=== PATIENT | female | born 1980 | race Caucasian/White ===

== ENCOUNTER 2018-05-01 21:09 | Inpatient (IN) | payer MEDICAID ==
[2018-05-01] MEDS ORDERED: ONDANSETRON HCL IV 4 MG/2 ML VIAL IVP ONE (21:26)
[2018-05-01] MEDS ORDERED: MORPHINE SULFATE 10 MG/ML VIAL IVP ONE ×2 (21:27→23:43)
[2018-05-01] MEDS ORDERED: 0.9 % SODIUM CHLORIDE 1000ML 1,000 ML IV SCH (21:30)
--- NOTE | 2018-05-01 21:31 | Emergency Department Record ---
History of Present Illness - General Chief Complaint: Abdominal Pain Stated Complaint: ABD PAIN Time Seen by Provider: 05/01/18 21:15 Source: Patient Mode of Arrival: Ambulatory Limitations: No limitations - History of Present Illness Initial Comments: 37 yo female presents to ED for evaluation of RLQ abdominal pain that began 3 days ago. Patient reports a history of crohn's s/p partial bowel resection approximately 10 years ago. Patient denies fevers, chills, nausea, or vomiting symptoms. Patient does report that her symptoms have been intermittent in nature, also reports previous appendectomy. MD Complaint: Abdominal pain Onset/Timin -: Days(s) Location: RLQ Radiation: None Severity scale (1-10): 9 Quality: Other Consistency: Constant Worsens With: Movement Associated Symptoms: Nausea - Related Data LMP (females 10-50): Last week Patient : No Home Medications Medication Instructions Recorded Confirmed Last Taken Aripiprazole 15 mg PO DAILY 05/01/18 05/01/18 Unknown Bupropion HCl [Bupropion Xl] 300 mg PO QAM 05/01/18 05/01/18 Unknown Cyclobenzaprine HCl [Flexeril] 5 mg PO BID PRN 05/01/18 05/01/18 Unknown Allergies Allergy/AdvReac Type Severity Reaction Status Date / Time cephalexin Allergy Mild hives Verified 05/01/18 21:13 Travel Screening - Travel/Exposure Within Last 30 Days Have you traveled within the last 30 days?: No - Travel Symptoms Symptom Screening: None Review of Systems Constitutional: Denies: Chills, Fever, Malaise, Night sweats Eyes: Denies: Eye discharge, Eye pain ENT: Denies: Congestion, Ear pain, Epistaxis Respiratory: Denies: Cough, Dyspnea Cardiovascular: Denies: Chest pain, Dyspnea on exertion Endocrine: Denies: Fatigue, Heat or cold intolerance Gastrointestinal: Reports: Abdominal pain. Denies: Nausea, Vomiting Genitourinary: Denies: Incontinence, Retention Musculoskeletal: Denies: Arthralgia, Back pain Skin: Denies: Bruising, Change in color Neurological: Denies: Abnormal gait, Confusion, Headache, Seizure Psychiatric: Denies: Anxiety Hematological/Lymphatic: Denies: Anemia, Blood Clots Past Medical History - SOCIAL HISTORY Smoking Status: Former smoker - RESPIRATORY Hx Respiratory Disorders: No - CARDIOVASCULAR Hx Cardio Disorders: No - NEURO Hx Neuro Disorders: No - GI Hx GI Disorders: Yes Hx Crohn's Disease: Yes Hx Obstructive Bowel: Yes - Hx Genitourinary Disorders: Yes Hx Bladder Problem: Yes (mild incontinence) - ENDOCRINE Hx Endocrine Disorders: No - MUSCULOSKELETAL Hx Musculoskeletal Disorders: No - PSYCH Hx Psych Problems: Yes Hx Anxiety: Yes Hx Depression: Yes Comment:: Bipolar - HEMATOLOGY/ONCOLOGY Hx Hematology/Oncology Disorders: No Family Medical History Any Significant Family History?: Yes Family Hx Comment (NOT TO BE USED IN PLACE OF ITEMS BELOW): Mom w/Aids Physical Exam - General General Appearance: Alert, Oriented x3, Cooperative, Mild distress Limitations: No limitations - Head Head exam: Atraumatic, Normocephalic, Normal inspection Head exam detail: negative: Abrasion, Contusion, Cote's sign, General tenderness, Hematoma, Laceration - Eye Eye exam: Normal appearance. negative: Conjunctival injection, Periorbital swelling, Periorbital tenderness, Scleral icterus - ENT Ear exam: negative: Auricular hematoma, Auricular trauma Nasal Exam: negative: Active bleeding, Discharge, Dried blood, Foreign body Mouth exam: negative: Drooling, Laceration, Muffled voice, Tongue elevation - Neck Neck exam: Normal inspection. negative: Meningismus, Tenderness - Respiratory Respiratory exam: Normal lung sounds bilaterally. negative: Rales, Respiratory distress, Rhonchi, Stridor - Cardiovascular Cardiovascular Exam: Regular rate, Normal rhythm, Normal heart sounds - GI/Abdominal GI/Abdominal exam: Soft, Tenderness (TTP RLQ on examination, no rebound or guarding are present.). negative: Rebound, Rigid - Rectal Rectal exam: Deferred - exam: Deferred - Extremities Extremities exam: Normal inspection. negative: Calf tenderness, Pedal edema, Tenderness - Back Back exam: Denies: CVA tenderness (R), CVA tenderness (L) - Neurological Neurological exam: Alert, Normal gait, Oriented X3 - Psychiatric Psychiatric exam: Normal affect, Normal mood - Skin Skin exam: Normal color. negative: Abrasion Type of lesion: negative: abrasion Course Vital Signs 05/01/18 21:15 Temperature 98.5 F Pulse Rate [ 131 H Pulse Ox Probe] Respiratory 24 Rate Blood Pressure 154/102 [Left Arm] Pulse Ox 97 - Reevaluation(s) Reevaluation #1: 05/01/18 22:31 Labs reviewed and are grossly unremarkable for an acute process. Patient reports improvement in her symptoms following Morphine administration, is drinking oral contrast for CT imaging at this time. Reevaluation #2: 05/01/18 23:43 Patient is back from CT imaging, additional analgesia ordered as the patient's pain symptoms are beginning to return. Reevaluation #3: 05/02/18 00:23 Inflammatory changes are seen within the terminal ileum compatible with crohn's flare Results in early/incomplete small bowel obstruction. Sequela of chronic inflammation within the distal descending colon and sigmoid colon. Hepatic steatosis, mild hepatomegay. Patient was updated on all results, will admit for IV steroids and surgical consultation tomorrow morning. Patient is in agreement with the plan of care as directed. Reevaluation #4: 05/02/18 06:37 Case was discussed with Ivy WREN, will accept admission at this time. Medical Decision Making - Lab Data Result diagrams: 05/01/18 21:32 05/01/18 21:32 Disposition Disposition: Admit Clinical Impression: SBO (small bowel obstruction) Crohn's colitis Qualifiers: Digestive disease complication type: without complication Qualified Code(s): K50.10 - Crohn's disease of large intestine without complications Disposition: Still a Patient at [facility] Decision to Admit: Admit from ER Decision to Admit Date: 05/02/18 Decision to Admit Time: 00:30 Condition: (2) Stable Time of Disposition: 00:22 Quality - Quality Measures Quality Measures: N/A - Blood Pressure Screening Does Patient Have Any of the Following: No Blood Pressure Classification: Pre-Hypertensive BP Reading Systolic Measurement: 132 Diastolic Measurement: 89 Screening for High Blood Pressure: < Pre-Hypertensive BP, F/U Documented > [ [id number]] Pre-Hypertensive Follow-up Interventions: Referral to alternative/primary care provider.
[2018-05-01 21:38] LABS: BASO % 0.3 % (0-6); EOS % 3.3 % (0-6); GRAN % 63.7 % (47-80); HEMATOCRIT 40.7 % (35.0-47.0); HEMOGLOBIN 13.5 gm/dl (11.6-16.0); LYMPH % 22.7 % (16-45); MEAN CELL VOLUME 89.1 fl (81-97); MEAN CORPUSCULAR HEMOGLOBIN 29.5 pg (27-33); MEAN CORPUSCULAR HGB CONC 33.2 g/dl (32-36); MEAN PLATELET VOLUME 8.4 fl (7.4-10.4); PLATELET COUNT 436 K/uL (130-400); RED BLOOD COUNT 4.57 M/uL (3.80-5.40); RED CELL DISTRIBUTION WIDTH 13.8 % (11.5-14.5); WHITE BLOOD COUNT W/O DIFF 9.5 K/uL (4.2-12.2)
[2018-05-01 21:56] LABS: ALB/GLOB RATIO 1.6 (1.1-1.8); ALBUMIN 4.2 g/dL (4.0-5.0); ALKALINE PHOSPHATASE 68 U/L (35-104); ALT/SGPT 20 U/L (<33); AST/SGOT 14 U/L (10.0-35.0); BLOOD UREA NITROGEN 6 mg/dL (6-20); CREATININE 0.7 mg/dL (0.5-0.9); EST GLOMERULAR FILTRATION RATE > 60 mL/min; GLUCOSE,RANDOM 110 mg/dL (74-109); LIPASE 25 U/L (13-60); TOTAL PROTEIN 6.8 g/dL (6.6-8.7)
[2018-05-01 22:39] LABS: URINE APPEARANCE CLEAR; URINE BILIRUBIN NEGATIVE (NEGATIVE); URINE BLOOD TRACE-I (NEGATIVE); URINE COLOR YELLOW; URINE GLUCOSE (UA) NEGATIVE (NEGATIVE); URINE KETONE NEGATIVE (NEGATIVE); URINE LEUKOCYTE ESTERASE SMALL (NEGATIVE); URINE NITRITE NEGATIVE (NEGATIVE); URINE PROTEIN NEGATIVE (NEGATIVE); URINE UROBILINOGEN 0.2 E.U./dL (0.20 - 1.00)
[2018-05-01 22:42] LABS: URINE BACTERIA FEW; URINE RBC 0 - 2 (NONE SEEN); URINE WBC 0 - 2 (0-2/hpf)
[2018-05-02] MEDS ORDERED: METHYLPREDNISOLONE PF 125MG/VIAL IVP ONE (00:28)
[2018-05-02] MEDS ORDERED: ONDANSETRON HCL IV 4 MG/2 ML VIAL IVP PRN (01:01)
[2018-05-02] MEDS ORDERED: VENLAFAXINE ER 75 MG CAPSULE PO SCH (01:01)
[2018-05-02] MEDS ORDERED: 0.9 % SODIUM CHLORIDE 1000ML 1,000 ML IV PRN (01:01)
[2018-05-02] MEDS ORDERED: MORPHINE SULFATE 10 MG/ML VIAL IVP SCH (01:01)
[2018-05-02] MEDS ORDERED: CYCLOBENZAPRINE 10MG TABLET PO PRN (02:19)
[2018-05-02] MEDS: MORPHINE SULFATE 10 MG/ML VIAL IVP PRN ×3 (04:29→12:28)
--- NOTE | 2018-05-02 07:39 | CT SCAN REPORT ---
EXAM: CT OF THE ABDOMEN AND PELVIS WITH CONTRAST HISTORY: RIGHT LOWER QUADRANT ABDOMINAL PAIN FOR THREE DAYS WITH DIARRHEA. TECHNIQUE: Contrast enhanced helical CT examination of the abdomen and pelvis was performed including delayed images through the kidneys with 100 ml of Omnipaque 300 utilized. Comparison: None. FINDINGS: Linear scarring versus atelectasis is present in the medial segment of the right middle lobe. The lung bases are otherwise clear. No pleural or pericardial effusion. The heart is not enlarged. There is a well circumscribed hypodense lesion within the anterior aspect of the medial segment of the left liver lobe as seen on series 3 image 33. This measures 8.5 x 9.5 mm. It is nonspecific, but likely a cyst or hemangioma. No other focal liver lesion is identified. The spleen, pancreas and adrenal glands are normal in appearance. A too small to characterize hypodense focus is demonstrated within the cortex of the mid right kidney. A tiny hypodense focus is also questioned within the mid left kidney. These are nonspecific, but likely cysts. The kidneys are otherwise normal in appearance. The gallbladder is unremarkable and no biliary ductal dilatation is seen. The portal vein and splenic vein are patent. The central mesenteric vasculature is patent. No aneurysm identified. Post surgical changes are noted within the right abdomen with enterocolic anastomosis in the right upper quadrant. Proximal to the anastomosis, the distal ileum is mildly dilated with associated air fluid levels and mild stranding of adjacent mesenteric fat. Trace fluid is present in this region. These findings are consistent with active inflammatory disease. There are associated mildly prominent lymph nodes in the central mesentery with the largest measuring 11 mm in short axis diameter. Liquid stool is noted within the left colon consistent with stated history of diarrhea. No pelvic mass, lymphadenopathy or free pelvic fluid. Small follicles are scattered within the ovaries. No intrinsic urinary bladder abnormality. There is a small fat filled umbilical hernia. No lytic or blastic bone lesion. IMPRESSION: 1. FINDINGS CONSISTENT WITH PARTIAL RESECTION OF RIGHT COLON AND ILEUM WITH ENTEROCOLIC ANASTOMOSIS IN THE RIGHT UPPER QUADRANT. ABNORMAL APPEARANCE OF THE DISTAL ILEUM CONSISTENT WITH ACTIVE INFLAMMATORY BOWEL DISEASE APPEARING TO CAUSE PARTIAL OBSTRUCTION. NO ASSOCIATED ABSCESS. THERE ARE REACTIVE LYMPH NODES IN THIS REGION. 2. NOT MENTIONED ABOVE IS MILD HEPATIC STEATOSIS. TOO SMALL TO CHARACTERIZE HYPODENSE LESION IN THE MEDIAL SEGMENT OF THE LEFT LIVER LOBE IS NONSPECIFIC, BUT LIKELY A CYST OR HEMANGIOMA. 3. SINGLE TOO SMALL TO CHARACTERIZE HYPODENSE LESIONS WITHIN THE KIDNEYS ARE NONSPECIFIC, BUT LIKELY CYSTS. JOB NUMBER: [id number] MTDD
[2018-05-02] MEDS: VENLAFAXINE ER 75 MG CAPSULE PO SCH (09:31)
[2018-05-02] MEDS ORDERED: METHYLPREDNISOLONE PF 125MG/VIAL IVP SCH (10:00)
[2018-05-02] MEDS ORDERED: ARIPIPRAZOLE 15 MG PO SCH ×2 (10:00)
--- NOTE | 2018-05-02 11:15 | History & Physical ---
History of Present Illness - Date of Service Date of Service for History & Physical: 05/02/18 - History of Present Illness Admitting Diagnosis: Crohn's colitis. Early/incomplete SBO History of Present Illness: Mrs. Morris is a 37 yo female who presented to the ED the evening of 05/01 for evaluation of RLQ abdominal pain that began 3 days prior. Patient reported a history of crohn's s/p partial bowel resection approximately 10 years ago. Patient denies fevers, chills, nausea, or vomiting symptoms. Patient does report that her symptoms have been intermittent in nature, also reports previous appendectomy. Her hx includes ex-smoker, crohn's disease, bowel obstruction, mild urinary incontinence, depression, anxiety, and bipolar disorder. In the ED, her vital signs were stable. Her labs were grossly unremarkable for acute process. She reported improved symptoms after IV morphine administration. CT demonstrated inflammatory changes within the terminal ileum compatible with Crohn's flare. Patient was updated on all results, admitted for IV steroids and possible surgical consultation if no improvement in symptoms. 05/02/18: Pt. is resting comfortably in bed. She reports pain controlled well with IV morphine. She states that she did have a bowel movement earlier in the morning- no noticeable blood/mucus in stool. Plan to advance diet to clear liquids, change steroids to PO (60mg prednisone daily) and try PO pain management. Will consider surgical consultation if no improvement in symptoms. Travel Screening - Travel/Exposure Within Last 30 Days Have you traveled within the last 30 days?: No - Travel/Exposure Within Last Year Have you traveled outside the [place] in the last year?: No - Additonal Travel Details Have you been exposed to anyone with a communicable illness?: No - Travel Symptoms Symptom Screening: None Review of Systems Constitutional: Denies: Chills, Fever, Malaise, Night sweats Eyes: Denies: Eye discharge, Eye pain ENT: Denies: Congestion, Ear pain, Epistaxis Respiratory: Denies: Cough, Dyspnea Cardiovascular: Denies: Chest pain, Dyspnea on exertion Endocrine: Denies: Fatigue, Heat or cold intolerance Gastrointestinal: Reports: Abdominal pain. Denies: Nausea, Vomiting Genitourinary: Denies: Incontinence, Retention Musculoskeletal: Denies: Arthralgia, Back pain Skin: Denies: Bruising, Change in color Neurological: Denies: Abnormal gait, Confusion, Headache, Seizure Psychiatric: Denies: Anxiety Hematological/Lymphatic: Denies: Anemia, Blood Clots Past Medical History - SOCIAL HISTORY Smoking Status: Former smoker - RESPIRATORY Hx Respiratory Disorders: No - CARDIOVASCULAR Hx Cardio Disorders: No - NEURO Hx Neuro Disorders: No - GI Hx GI Disorders: Yes Hx Crohn's Disease: Yes Hx Obstructive Bowel: Yes - Hx Genitourinary Disorders: Yes Hx Bladder Problem: Yes (mild incontinence) - ENDOCRINE Hx Endocrine Disorders: No - MUSCULOSKELETAL Hx Musculoskeletal Disorders: No - PSYCH Hx Psych Problems: Yes Hx Anxiety: Yes Hx Depression: Yes Comment:: Bipolar - HEMATOLOGY/ONCOLOGY Hx Hematology/Oncology Disorders: No Family Medical History Any Significant Family History?: Yes Family Hx Comment (NOT TO BE USED IN PLACE OF ITEMS BELOW): Mom w/Aids H&P Meds/Allergies - Allergies Allergies: Allergies Allergy/AdvReac Type Severity Reaction Status Date / Time cephalexin Allergy Mild hives Verified 05/01/18 21:13 - Home Medications Home Medications Medication Instructions Recorded Confirmed Last Taken Aripiprazole 15 mg PO DAILY 05/01/18 05/01/18 Unknown Bupropion HCl [Bupropion Xl] 300 mg PO QAM 05/01/18 05/01/18 Unknown Cyclobenzaprine HCl [Flexeril] 5 mg PO BID PRN 05/01/18 05/01/18 Unknown - Active Medications Active Medications: Current Medications Bupropion HCl (Wellbutrin Sr) 300 mg PO QHS [facility] Cyclobenzaprine HCl (Flexeril) 5 mg PO BID PRN PRN Reason: SPASMS Sodium Chloride () 1,000 mls @ 100 mls/hr IV .Q10H PRN PRN Reason: LARGE VOLUME IV Last Admin: 05/02/18 01:53 Dose: 100 mls/hr Methylprednisolone Sodium Succinate (Solu-Medrol) 125 mg IVP DAILY [facility] Last Admin: 05/02/18 09:31 Dose: 125 mg Morphine Sulfate (Morphine Sulfate) 4 mg IVP Q4H PRN PRN Reason: ABDOMINAL PAIN Last Admin: 05/02/18 08:16 Dose: 4 mg Non-Formulary Medication (Aripiprazole [Aripiprazole]) 15 mg PO DAILY [facility] Ondansetron HCl (Zofran) 4 mg IVP Q4H PRN PRN Reason: NAUSEA Quetiapine Fumarate (Seroquel) 150 mg PO QHS [facility] Venlafaxine HCl (Effexor Xr) 75 mg PO DAILY [facility] Last Admin: 05/02/18 09:31 Dose: 75 mg Physical Exam - Vital Signs Vital Signs: Vital Signs - Last 24 Hrs Temp Pulse Resp BP BP Pulse Ox 05/02/18 08:41 20 05/02/18 04:00 99.2 F 113 H 17 132/89 93 L 05/02/18 01:28 18 05/02/18 01:01 98.8 F 111 H 18 149/98 94 L 05/02/18 00:41 102 H 16 145/100 94 L 05/01/18 23:51 100 H 16 130/90 94 L 05/01/18 22:30 100 H 16 145/97 98 05/01/18 21:15 98.5 F 131 H 24 154/102 97 - General General Appearance: Alert, Oriented x3, Cooperative, Mild distress Limitations: No limitations - Head Head exam: Atraumatic, Normocephalic, Normal inspection Head exam detail: negative: Abrasion, Contusion, Cote's sign, General tenderness, Hematoma, Laceration - Eye Eye exam: Normal appearance. negative: Conjunctival injection, Periorbital swelling, Periorbital tenderness, Scleral icterus - ENT Ear exam: negative: Auricular hematoma, Auricular trauma Nasal Exam: negative: Active bleeding, Discharge, Dried blood, Foreign body Mouth exam: negative: Drooling, Laceration, Muffled voice, Tongue elevation - Neck Neck exam: Normal inspection. negative: Meningismus, Tenderness - Respiratory Respiratory exam: Normal lung sounds bilaterally. negative: Rales, Respiratory distress, Rhonchi, Stridor - Cardiovascular Cardiovascular Exam: Regular rate, Normal rhythm, Normal heart sounds - GI/Abdominal GI/Abdominal exam: Soft, Tenderness (TTP RLQ on examination, no rebound or guarding are present.). negative: Rebound, Rigid - Rectal Rectal exam: Deferred - exam: Deferred - Extremities Extremities exam: Normal inspection. negative: Calf tenderness, Pedal edema, Tenderness - Back Back exam: Denies: CVA tenderness (R), CVA tenderness (L) - Neurological Neurological exam: Alert, Normal gait, Oriented X3 - Psychiatric Psychiatric exam: Normal affect, Normal mood - Skin Skin exam: Normal color. negative: Abrasion Type of lesion: negative: abrasion Results - Labs Result Diagrams: 05/01/18 21:32 05/01/18 21:32 Labs Last 24 Hours: Laboratory Results - last 24 hr 05/01/18 05/01/18 05/01/18 21:32 21:32 22:39 WBC 9.5 RBC 4.57 Hgb 13.5 Hct 40.7 MCV 89.1 MCH 29.5 MCHC 33.2 RDW 13.8 Plt Count 436 H MPV 8.4 Gran % 63.7 Lymphocytes % 22.7 Monocytes % 10.0 H Eosinophils % 3.3 Basophils % 0.3 Sodium 139 Potassium 3.5 Chloride 102 Carbon Dioxide 23.0 Anion Gap 14.0 BUN 6 Creatinine 0.7 Estimated GFR > 60 Random Glucose 110 H Calcium 9.1 Total Bilirubin 0.20 AST 14 ALT 20 Alkaline Phosphatase 68 Total Protein 6.8 Albumin 4.2 Globulin 2.6 Albumin/Globulin Ratio 1.6 Lipase 25 Urine Color Urine Appearance Urine pH Ur Specific Hardy Urine Protein Urine Glucose (UA) Urine Ketones Urine Blood Urine Nitrite Urine Bilirubin Urine Urobilinogen Ur Leukocyte Esterase Urine RBC Urine WBC Ur Epithelial Cells Urine Bacteria Urine HCG, Qual Negative 05/01/18 22:40 WBC RBC Hgb Hct MCV MCH MCHC RDW Plt Count MPV Gran % Lymphocytes % Monocytes % Eosinophils % Basophils % Sodium Potassium Chloride Carbon Dioxide Anion Gap BUN Creatinine Estimated GFR Random Glucose Calcium Total Bilirubin AST ALT Alkaline Phosphatase Total Protein Albumin Globulin Albumin/Globulin Ratio Lipase Urine Color Yellow Urine Appearance Clear Urine pH 6.0 Ur Specific Hardy <= 1.005 Urine Protein Negative Urine Glucose (UA) Negative Urine Ketones Negative Urine Blood Trace-i Urine Nitrite Negative Urine Bilirubin Negative Urine Urobilinogen 0.2 Ur Leukocyte Esterase Small H Urine RBC 0 - 2 Urine WBC 0 - 2 Ur Epithelial Cells 10 - 15 Urine Bacteria Few Urine HCG, Qual VTE H&P Assessment - Risk for VTE Risk for VTE: Yes Risk Level: Very Low Risk Assessment Date: 05/02/18 Risk Assessment Time: 18:52 VTE Orders Placed or Will Be Placed: Yes Plan - Inpatient Certification Inpatient Certification: Admit to inpatient care: Based on my medical assessment, after consideration of patient's risk factors (age, co-morbidities and patient presenting symptoms and acuity), I expect that this patient will remain in the hospital greater than or equal to two midnights and that the services needed warrant inpatient care because: Patient Risk Factors: [co-morbidities, crohn's colitis] Estimated length of stay: [24-72 hours] The patient may reasonably be expected to be discharged or transferred to a hospital within 96 hours after admission to [facility]. Services needed: [IVF, IV steroids] Post hospital care (if known): [] I certify that my determination is in accordance with my understanding of Medicare requirements for reasonable and necessary inpatient services. 05/02/18 11:13 - Detailed Diagnosis and Plan (1) Crohn's colitis Current Visit: Yes Status: Acute Qualifiers: Digestive disease complication type: without complication Qualified Code(s) : K50.10 - Crohn's disease of large intestine without complications Base Code: K50.10 - CROHN'S DISEASE OF LARGE INTESTINE WITHOUT COMPLICATIONS Comment: 05/02/18: -Inflammatory changes seen of CT consistent with Crohn's flair -solumedrol IVP, changed to PO prednisone today- 60mg daily -IV saline locked, pt. tolerating clear liquids -[place] 5/325mg PO q6h prn abdominal pain -advance diet as tolerated (2) Partial small bowel obstruction Current Visit: Yes Status: Acute Base Code: K56.600 - PARTIAL INTESTINAL OBSTRUCTION, UNSPECIFIED TO CAUSE Comment: 05/02/18: -partial/early SBO seen on abd CT -Pt. has had bm today, no pain with bm, denies bleeding/mucous -advance diet as tolerated -encouraging clear fluids (3) At risk for deep venous thrombosis Current Visit: Yes Status: Acute Base Code: Z91.89 - OTH PERSONAL RISK FACTORS, NOT ELSEWHERE CLASSIFIED Comment: 05/02/18: -low risk for dvt, 40mg sc lovenox daily for dvt prophylaxis (4) Full code status Current Visit: Yes Status: Acute Base Code: Z78.9 - OTHER SPECIFIED HEALTH STATUS Comment: 05/02/18: -Pt. is a full code
[2018-05-02] MEDS ORDERED: MORPHINE SULFATE 10 MG/ML VIAL IM ONE (15:11)
[2018-05-02] MEDS ORDERED: ONDANSETRON 4 MG ODT TABLET SL PRN (18:14)
[2018-05-02] MEDS: HYDROCODONE/APAP 5/325MG TABLET PO PRN (21:05)
[2018-05-02] MEDS ORDERED: BUPROPION HCL 150 MG TAB.SR.12H PO SCH (22:00)
[2018-05-02] MEDS ORDERED: QUETIAPINE FUMARATE 100 MG TABLET PO SCH (22:00)
[2018-05-03] MEDS: HYDROCODONE/APAP 5/325MG TABLET PO PRN (03:22)
[2018-05-03 07:24] LABS: BASO % 0.1 % (0-6); EOS % 0.2 % (0-6); GRAN % 78.6 % (47-80); HEMATOCRIT 37.1 % (35.0-47.0); HEMOGLOBIN 11.6 gm/dl (11.6-16.0); LYMPH % 11.6 % (16-45); MEAN CELL VOLUME 91.4 fl (81-97); MEAN CORPUSCULAR HEMOGLOBIN 28.6 pg (27-33); MEAN CORPUSCULAR HGB CONC 31.3 g/dl (32-36); MONO % 9.5 % (0-9); PLATELET COUNT 487 K/uL (130-400); RED BLOOD COUNT 4.06 M/uL (3.80-5.40); RED CELL DISTRIBUTION WIDTH 14.1 % (11.5-14.5); WHITE BLOOD COUNT W/O DIFF 13.7 K/uL (4.2-12.2)
[2018-05-03 07:40] LABS: ALB/GLOB RATIO 1.9 (1.1-1.8); ALKALINE PHOSPHATASE 56 U/L (35-104); ALT/SGPT 16 U/L (<33); AST/SGOT 12 U/L (10.0-35.0); BILIRUBIN,TOTAL < 0.20 mg/dL (0.2-1.0); BLOOD UREA NITROGEN 5 mg/dL (6-20); CREATININE 0.6 mg/dL (0.5-0.9); EST GLOMERULAR FILTRATION RATE > 60 mL/min; GLUCOSE,RANDOM 115 mg/dL (74-109); TOTAL PROTEIN 6.1 g/dL (6.6-8.7)
[2018-05-03] MEDS ORDERED: PREDNISONE 20 MG TAB PO SCH (08:00)
[2018-05-03] MEDS: VENLAFAXINE ER 75 MG CAPSULE PO SCH (08:47)
--- NOTE | 2018-05-03 10:52 | Discharge Summary ---
Providers Discharge Summary Date: 05/03/18 Date of admission: 05/02/18 00:57 Expected Date of Discharge: 05/03/18 Attending physician: ANITA MELVIN Primary care physician: MARTÍN YEPEZ M.D. Physical Exam - Vital Signs Vital Signs: Vital Signs - Last 24 Hrs Temp Pulse Resp BP Pulse Ox 05/03/18 02:00 98.1 F 106 H 16 119/77 93 L 05/02/18 18:00 97.3 F L 112 H 16 121/73 97 - General General Appearance: Alert, Oriented x3, Cooperative, No acute distress Limitations: No limitations - Head Head exam: Atraumatic, Normocephalic, Normal inspection Head exam detail: negative: Abrasion, Contusion, Cote's sign, General tenderness, Hematoma, Laceration - Eye Eye exam: Normal appearance. negative: Conjunctival injection, Periorbital swelling, Periorbital tenderness, Scleral icterus - ENT Ear exam: negative: Auricular hematoma, Auricular trauma Nasal Exam: negative: Active bleeding, Discharge, Dried blood, Foreign body Mouth exam: negative: Drooling, Laceration, Muffled voice, Tongue elevation - Neck Neck exam: Normal inspection. negative: Meningismus, Tenderness - Respiratory Respiratory exam: Normal lung sounds bilaterally. negative: Rales, Respiratory distress, Rhonchi, Stridor - Cardiovascular Cardiovascular Exam: Regular rate, Normal rhythm, Normal heart sounds - GI/Abdominal GI/Abdominal exam: Soft, Tenderness (TTP RLQ on examination, no rebound or guarding are present.). negative: Rebound, Rigid - Rectal Rectal exam: Deferred - exam: Deferred - Extremities Extremities exam: Normal inspection. negative: Calf tenderness, Pedal edema, Tenderness - Back Back exam: Denies: CVA tenderness (R), CVA tenderness (L) - Neurological Neurological exam: Alert, Normal gait, Oriented X3 - Psychiatric Psychiatric exam: Normal affect, Normal mood - Skin Skin exam: Normal color. negative: Abrasion Type of lesion: negative: abrasion Hospitalization - Hospitalization Admission Diagnosis: Crohn's colitis. Early/incomplete SBO - Problem List/Discharge Diagnosis (1) Crohn's colitis Current Visit: Yes Status: Acute Discharge Diagnosis: Digestive disease complication type: without complication Qualified Code(s) : K50.10 - Crohn's disease of large intestine without complications Base Code: K50.10 - CROHN'S DISEASE OF LARGE INTESTINE WITHOUT COMPLICATIONS Comment: 05/03/18: -Inflammatory changes seen of CT consistent with Crohn's flair -60mg prednisone daily -IV saline locked, pt. tolerating clear liquids -[place] 5/325mg PO q6h prn abdominal pain -Plan to d/c home today and pt. to f/u with her GI -advance diet as tolerated (2) Partial small bowel obstruction Current Visit: Yes Status: Acute Base Code: K56.600 - PARTIAL INTESTINAL OBSTRUCTION, UNSPECIFIED TO CAUSE Comment: 05/03/18: -partial/early SBO seen on abd CT -Pt. has had bms, no pain with bm, denies bleeding/mucous -advance diet as tolerated -encouraging clear fluids (3) At risk for deep venous thrombosis Current Visit: Yes Status: Acute Base Code: Z91.89 - OTH PERSONAL RISK FACTORS, NOT ELSEWHERE CLASSIFIED Comment: 05/03/18: -low risk for dvt, will not continue lovenox with d/c (4) Full code status Current Visit: Yes Status: Acute Base Code: Z78.9 - OTHER SPECIFIED HEALTH STATUS Comment: 05/03/18: -Pt. is a full code - Hospitalization Course Disposition: Home, Self-Care Hospital Course: Mrs. Morris is a 37 yo female who presented to the ED the evening of 05/01 for evaluation of RLQ abdominal pain that began 3 days prior. Patient reported a history of crohn's s/p partial bowel resection approximately 10 years ago. Patient denies fevers, chills, nausea, or vomiting symptoms. Patient does report that her symptoms have been intermittent in nature, also reports previous appendectomy. Her hx includes ex-smoker, crohn's disease, bowel obstruction, mild urinary incontinence, depression, anxiety, and bipolar disorder. In the ED, her vital signs were stable. Her labs were grossly unremarkable for acute process. She reported improved symptoms after IV morphine administration. CT demonstrated inflammatory changes within the terminal ileum compatible with Crohn's flare. Patient was updated on all results, admitted for IV steroids and possible surgical consultation if no improvement in symptoms. 05/02/18: Pt. is resting comfortably in bed. She reports pain controlled well with IV morphine. She states that she did have a bowel movement earlier in the morning- no noticeable blood/mucus in stool. Plan to advance diet to clear liquids, change steroids to PO (60mg prednisone daily) and try PO pain management. Will consider surgical consultation if no improvement in symptoms. 05/03/18: Pt. is resting in bed. She reports improved pain management with PO pain medication. She is tolerating clears and prednisone. UA repeated because slight elevation in WBCs- likely due to steroids. Plan to d/c home today and pt. to f/u with her GI. Procedures: Imaging and X-Rays 05/01/18 21:27 ABDOMEN/PELVIS W CONTRAST [CT] Stat Abnormal Labs: Abnormal Lab Results 05/01/18 05/01/18 05/01/18 Range/Units 21:32 21:32 22:40 WBC (4.2-12.2) K/uL MCHC (32-36) g/dl Plt Count 436 H (130-400) K/uL Lymphocytes % (16-45) % Monocytes % 10.0 H (0-9) % BUN (6-20) mg/dL Random Glucose 110 H (74-109) mg/dL Calcium (8.6-10.0) mg/dL Total Bilirubin (0.2-1.0) mg/dL Total Protein (6.6-8.7) g/dL Albumin/Globulin Ratio (1.1-1.8) Ur Leukocyte Esterase Small H (NEGATIVE) 05/03/18 05/03/18 Range/Units 07:15 07:15 WBC 13.7 H (4.2-12.2) K/uL MCHC 31.3 L (32-36) g/dl Plt Count 487 H (130-400) K/uL Lymphocytes % 11.6 L (16-45) % Monocytes % 9.5 H (0-9) % BUN 5 L (6-20) mg/dL Random Glucose 115 H (74-109) mg/dL Calcium 8.5 L (8.6-10.0) mg/dL Total Bilirubin < 0.20 L (0.2-1.0) mg/dL Total Protein 6.1 L (6.6-8.7) g/dL Albumin/Globulin Ratio 1.9 H (1.1-1.8) Ur Leukocyte Esterase (NEGATIVE) Condition at Discharge: (2) Stable VTE Discharge VTE Reason For No Overlap Therapy: Not Indicated (mobility not impaired) Discharge Medications - Discharge Medications Prescriptions: Hydrocodone/APAP 5/325Mg [[place] 5Mg/325Mg] 2 each PO Q6H PRN 3 Days #24 tab PRN Reason: Abdominal Pain Ondansetron [Zofran Odt] 4 mg SL Q8H PRN #24 tab.rapdis PRN Reason: Nausea/Vomiting Prednisone [Prednisone 20Mg] 40 mg PO DAILYWM 4 Days #8 tab Home Medications: Ambulatory Orders Albuterol Sulfate [Proair Hfa] 1 - 2 puff IH Q4-6HR inhaler 10/24/17 [Last Taken Unknown] Lamotrigine [Lamictal] 100 mg PO QHS tab 10/24/17 [Last Taken Unknown] Quetiapine Fumarate [Seroquel] 150 mg PO DAILY tab 10/24/17 [Last Taken Unknown ] Venlafaxine HCl [Effexor Xr] 75 mg PO QD cap 10/24/17 [Last Taken Unknown] Aripiprazole 15 mg PO DAILY 05/01/18 [Last Taken Unknown] Bupropion HCl [Bupropion Xl] 300 mg PO QAM 05/01/18 [Last Taken Unknown] Cyclobenzaprine HCl [Flexeril] 5 mg PO BID PRN 05/01/18 [Last Taken Unknown] Hydrocodone/APAP 5/325Mg [[place] 5Mg/325Mg] 2 each PO Q6H PRN 3 Days #24 tab 09/19 [Last Taken Unknown] Ondansetron [Zofran Odt] 4 mg SL Q8H PRN #24 tab.rapdis 05/03/18 [Last Taken Unknown] Prednisone [Prednisone 20Mg] 40 mg PO DAILYWM 4 Days #8 tab 05/03/18 [Last Taken Unknown] Discharge Plan - Discharge Instructions Activity at Discharge: Increase Activity as Tolerated Diet at Discharge: Advance to Usual Diet Additional Instructions: Return to ED if your symptoms worsen or if you have any concerns. [place] and Prednisone as directed. Follow-up with your GI specialist in 3-5 days as directed. Quality Measures - Quality Measures Quality Measures: Documentation of Current Medications in Medical Record, Screening for High Blood Pressure and F/U Documented - Current Medications Quality Measure: Measure #130: Documentation of Current Medications Documentation of Current Medications: <Current Medications Documented/Reviewed> [G8427] - Blood Pressure Screening Quality Measure: Screening for High Blood Pressure and Follow-Up Documented Does Patient Have Any of the Following: No Blood Pressure Classification: Normal BP Reading Systolic Measurement: 119 Diastolic Measurement: 77 Screening for High Blood Pressure: < Normal BP, F/U Not Required > [G8783] - Elder Abuse Suspicion Index EASI Reference Information: Tonio PARRISH, Weston C, Wilmer Hardy, Vonnie Quintana.Development and validation of a tool to assist physicians identification of elder abuse: The Elder Abuse Suspicion Index (EASI ). Journal of Elder Abuse and Neglect, 2008; 20 (3): 276-300.
[2018-05-03 11:22] LABS: URINE APPEARANCE CLEAR; URINE BILIRUBIN NEGATIVE (NEGATIVE); URINE BLOOD NEGATIVE (NEGATIVE); URINE COLOR YELLOW; URINE GLUCOSE (UA) NEGATIVE (NEGATIVE); URINE KETONE NEGATIVE (NEGATIVE); URINE LEUKOCYTE ESTERASE NEGATIVE (NEGATIVE); URINE NITRITE NEGATIVE (NEGATIVE); URINE PROTEIN TRACE (NEGATIVE); URINE UROBILINOGEN 0.2 E.U./dL (0.20 - 1.00)
--- NOTE | 2018-05-03 13:42 | Discharge Summary ---
Providers Date of admission: 05/02/18 00:57 Attending physician: ANITA MELVIN Primary care physician: MARTÍN YEPEZ M.D. Physical Exam - Vital Signs Vital Signs: Vital Signs - Last 24 Hrs Temp Pulse Resp BP Pulse Ox 05/03/18 11:50 99.1 F 109 H 18 133/88 99 05/03/18 02:00 98.1 F 106 H 16 119/77 93 L 05/02/18 18:00 97.3 F L 112 H 16 121/73 97 - General General Appearance: Alert, Oriented x3, Cooperative, No acute distress Limitations: No limitations - Head Head exam: Atraumatic, Normocephalic, Normal inspection Head exam detail: negative: Abrasion, Contusion, Cote's sign, General tenderness, Hematoma, Laceration - Eye Eye exam: Normal appearance. negative: Conjunctival injection, Periorbital swelling, Periorbital tenderness, Scleral icterus - ENT Ear exam: negative: Auricular hematoma, Auricular trauma Nasal Exam: negative: Active bleeding, Discharge, Dried blood, Foreign body Mouth exam: negative: Drooling, Laceration, Muffled voice, Tongue elevation - Neck Neck exam: Normal inspection. negative: Meningismus, Tenderness - Respiratory Respiratory exam: Normal lung sounds bilaterally. negative: Rales, Respiratory distress, Rhonchi, Stridor - Cardiovascular Cardiovascular Exam: Regular rate, Normal rhythm, Normal heart sounds - GI/Abdominal GI/Abdominal exam: Soft, Tenderness (TTP RLQ on examination, no rebound or guarding are present.). negative: Rebound, Rigid - Rectal Rectal exam: Deferred - exam: Deferred - Extremities Extremities exam: Normal inspection. negative: Calf tenderness, Pedal edema, Tenderness - Back Back exam: Denies: CVA tenderness (R), CVA tenderness (L) - Neurological Neurological exam: Alert, Normal gait, Oriented X3 - Psychiatric Psychiatric exam: Normal affect, Normal mood - Skin Skin exam: Normal color. negative: Abrasion Type of lesion: negative: abrasion Hospitalization - Hospitalization Admission Diagnosis: Crohn's colitis. Early/incomplete SBO - Problem List/Discharge Diagnosis (1) Crohn's colitis Current Visit: Yes Status: Acute Discharge Diagnosis: Digestive disease complication type: without complication Qualified Code(s) : K50.10 - Crohn's disease of large intestine without complications Base Code: K50.10 - CROHN'S DISEASE OF LARGE INTESTINE WITHOUT COMPLICATIONS Comment: 05/03/18: -Inflammatory changes seen of CT consistent with Crohn's flair -60mg prednisone daily -IV saline locked, pt. tolerating clear liquids -[place] 5/325mg PO q6h prn abdominal pain -Plan to d/c home today and pt. to f/u with her GI -advance diet as tolerated (2) Partial small bowel obstruction Current Visit: Yes Status: Acute Base Code: K56.600 - PARTIAL INTESTINAL OBSTRUCTION, UNSPECIFIED TO CAUSE Comment: 05/03/18: -partial/early SBO seen on abd CT -Pt. has had bms, no pain with bm, denies bleeding/mucous -advance diet as tolerated -encouraging clear fluids (3) At risk for deep venous thrombosis Current Visit: Yes Status: Acute Base Code: Z91.89 - OTH PERSONAL RISK FACTORS, NOT ELSEWHERE CLASSIFIED Comment: 05/03/18: -low risk for dvt, will not continue lovenox with d/c (4) Full code status Current Visit: Yes Status: Acute Base Code: Z78.9 - OTHER SPECIFIED HEALTH STATUS Comment: 05/03/18: -Pt. is a full code - Hospitalization Course Disposition: Home, Self-Care Procedures: Imaging and X-Rays 05/01/18 21:27 ABDOMEN/PELVIS W CONTRAST [CT] Stat Abnormal Labs: Abnormal Lab Results 05/01/18 05/01/18 05/01/18 Range/Units 21:32 21:32 22:40 WBC (4.2-12.2) K/uL MCHC (32-36) g/dl Plt Count 436 H (130-400) K/uL Lymphocytes % (16-45) % Monocytes % 10.0 H (0-9) % BUN (6-20) mg/dL Random Glucose 110 H (74-109) mg/dL Calcium (8.6-10.0) mg/dL Total Bilirubin (0.2-1.0) mg/dL Total Protein (6.6-8.7) g/dL Albumin/Globulin Ratio (1.1-1.8) Urine Protein (NEGATIVE) Ur Leukocyte Esterase Small H (NEGATIVE) 05/03/18 05/03/18 05/03/18 Range/Units 07:15 07:15 11:10 WBC 13.7 H (4.2-12.2) K/uL MCHC 31.3 L (32-36) g/dl Plt Count 487 H (130-400) K/uL Lymphocytes % 11.6 L (16-45) % Monocytes % 9.5 H (0-9) % BUN 5 L (6-20) mg/dL Random Glucose 115 H (74-109) mg/dL Calcium 8.5 L (8.6-10.0) mg/dL Total Bilirubin < 0.20 L (0.2-1.0) mg/dL Total Protein 6.1 L (6.6-8.7) g/dL Albumin/Globulin Ratio 1.9 H (1.1-1.8) Urine Protein Trace H (NEGATIVE) Ur Leukocyte Esterase (NEGATIVE) Condition at Discharge: (2) Stable Discharge Medications - Discharge Medications Prescriptions: Hydrocodone/Acetaminophen [[place] 5-325 Tablet] 1 - 2 each PO Q6H PRN 3 Days #24 tablet PRN Reason: Abdominal Pain Hydrocodone/APAP 5/325Mg [[place] 5Mg/325Mg] 2 each PO Q6H PRN 3 Days #24 tab PRN Reason: Abdominal Pain Ondansetron [Zofran Odt] 4 mg SL Q8H PRN #24 tab.rapdis PRN Reason: Nausea/Vomiting Prednisone [Prednisone 20Mg] 40 mg PO DAILYWM 4 Days #8 tab Home Medications: Ambulatory Orders Albuterol Sulfate [Proair Hfa] 1 - 2 puff IH Q4-6HR inhaler 10/24/17 [Last Taken Unknown] Lamotrigine [Lamictal] 100 mg PO QHS tab 10/24/17 [Last Taken Unknown] Quetiapine Fumarate [Seroquel] 150 mg PO DAILY tab 10/24/17 [Last Taken Unknown ] Venlafaxine HCl [Effexor Xr] 75 mg PO QD cap 10/24/17 [Last Taken Unknown] Aripiprazole 15 mg PO DAILY 05/01/18 [Last Taken Unknown] Bupropion HCl [Bupropion Xl] 300 mg PO QAM 05/01/18 [Last Taken Unknown] Cyclobenzaprine HCl [Flexeril] 5 mg PO BID PRN 05/01/18 [Last Taken Unknown] Hydrocodone/APAP 5/325Mg [[place] 5Mg/325Mg] 2 each PO Q6H PRN 3 Days #24 tab 09/19 [Last Taken Unknown] Hydrocodone/Acetaminophen [[place] 5-325 Tablet] 1 - 2 each PO Q6H PRN 3 Days #24 tablet 05/03/18 [Last Taken Unknown] Ondansetron [Zofran Odt] 4 mg SL Q8H PRN #24 tab.rapdis 05/03/18 [Last Taken Unknown] Prednisone [Prednisone 20Mg] 40 mg PO DAILYWM 4 Days #8 tab 05/03/18 [Last Taken Unknown] Discharge Plan - Discharge Instructions Activity at Discharge: Increase Activity as Tolerated Instructions: Microscopic Colitis (GEN) Additional Instructions: Return to ED if your symptoms worsen or if you have any concerns. [place] and Prednisone as directed. Follow-up with your GI specialist in 3-5 days as directed. See pre-printed discharge instructions given to patient. Prednisone and [place] prescription sent to [email or web address] pharmacy in [place], [place]. Quality Measures - Quality Measures Quality Measures: Documentation of Current Medications in Medical Record, Screening for High Blood Pressure and F/U Documented - Current Medications Quality Measure: Measure #130: Documentation of Current Medications - Blood Pressure Screening Quality Measure: Screening for High Blood Pressure and Follow-Up Documented Blood Pressure Classification: Pre-Hypertensive BP Reading Systolic Measurement: 133 Diastolic Measurement: 88 Screening for High Blood Pressure: < Pre-Hypertensive BP, F/U Documented > [ G8950] - Elder Abuse Suspicion Index EASI Reference Information: Tonio PARRISH, Weston C, Wilmer D, Vonnie Quintana.Development and validation of a tool to assist physicians identification of elder abuse: The Elder Abuse Suspicion Index (EASI ). Journal of Elder Abuse and Neglect, 2008; 20 (3): 276-300.
== END 2018-05-03 11:50 | disposition home or self-care (01) | DRG 386 ==
LOC: ER 21:09 → MEDSURG 05-02 00:57
PROVIDERS: ADMIT Internal Medicine; ATTEND Internal Medicine
DX: K50.10 Crohn's disease of large intestine without complications (principal); K56.600 Partial intestinal obstruction, unspecified as to cause; F31.9 Bipolar disorder, unspecified; Z87.891 Personal history of nicotine dependence
CPT/HCPCS: 74177; 80053; 81001; 81003; 81025; 83690; 85025; 96374; 96375; 96376; 99223; 99239; 99285; J2270; J2405; J2930; J3490; J7030; J7512

== ENCOUNTER 2018-05-17 21:06 | Emergency (ER) | payer MEDICAID ==
[2018-05-17] MEDS ORDERED: 0.9 % SODIUM CHLORIDE 1,000 ML BAG IV ONE (21:26)
[2018-05-17] MEDS ORDERED: ONDANSETRON HCL IV 4 MG/2 ML VIAL IV ONE (21:26)
--- NOTE | 2018-05-17 21:29 | Emergency Department Record ---
History of Present Illness - General Chief Complaint: Abdominal Pain Stated Complaint: ABD PAIN Time Seen by Provider: 05/17/18 21:20 Source: Patient Mode of Arrival: Ambulatory Limitations: No limitations - History of Present Illness Initial Comments: The patient is a 37 y/o WF with a long hx of Crohn's Dz who has had AP and nausea for 2 days. She denies any vomiting and is still having BM's. The patient has had an ileocecectomy in the past and has had SBO's. She was seen at [facility] yesterday for an outpatient CT that demonstrated active Crohn's Dz but no SBO. Today the pain has worsened along with the nausea. MD Complaint: Abdominal pain Onset/Timin -: Days(s) Location: Diffuse, L Flank, R Flank, LLQ, RLQ Radiation: None Migration to: No migration Severity: Moderate Severity scale (1-10): 8 Quality: Cramping, Fullness, Sharp Consistency: Constant, Intermittent Improves With: Nothing Worsens With: Movement Associated Symptoms: Denies other symptoms Treatments Prior to Arrival: Prescription analgesics, Other - Related Data LMP (females 10-50): This week Patient : No Previous Rx's Medication Instructions Recorded Hydrocodone/APAP 5/325Mg [[place] 2 each PO Q6H PRN 3 Days #24 tab 05/03/18 5Mg/325Mg] Hydrocodone/Acetaminophen [[place] 1 - 2 each PO Q6H PRN 3 Days #24 05/03/18 5-325 Tablet] tablet Ondansetron [Zofran Odt] 4 mg SL Q8H PRN #24 tab.rapdis 05/03/18 Allergies Allergy/AdvReac Type Severity Reaction Status Date / Time cephalexin Allergy Mild hives Verified 05/01/18 21:13 Travel Screening - Travel/Exposure Within Last 30 Days Have you traveled within the last 30 days?: No - Travel/Exposure Within Last Year Have you traveled outside the [place] in the last year?: No - Additonal Travel Details Have you been exposed to anyone with a communicable illness?: No - Travel Symptoms Symptom Screening: None Review of Systems Constitutional: Denies: Chills, Fever Eyes: Denies: Eye discharge ENT: Denies: Congestion Respiratory: Denies: Cough, Dyspnea Cardiovascular: Denies: Arrhythmia Endocrine: Denies: Fatigue Gastrointestinal: Reports: Abdominal pain, Nausea. Denies: Diarrhea, Vomiting Genitourinary: Denies: Dysuria Musculoskeletal: Denies: Arthralgia Past Medical History - SOCIAL HISTORY Smoking Status: Former smoker Alcohol Use: Rare Drug Use: None - RESPIRATORY Hx Respiratory Disorders: No - CARDIOVASCULAR Hx Cardio Disorders: No - NEURO Hx Neuro Disorders: No - GI Hx GI Disorders: Yes Hx Crohn's Disease: Yes Hx Obstructive Bowel: Yes - Hx Genitourinary Disorders: Yes Hx Bladder Problem: Yes (mild incontinence) - ENDOCRINE Hx Endocrine Disorders: No - MUSCULOSKELETAL Hx Musculoskeletal Disorders: No - PSYCH Hx Psych Problems: Yes Hx Anxiety: Yes Hx Depression: Yes Comment:: Bipolar - HEMATOLOGY/ONCOLOGY Hx Hematology/Oncology Disorders: No Family Medical History Any Significant Family History?: Yes Family Hx Comment (NOT TO BE USED IN PLACE OF ITEMS BELOW): Mom w/Aids Physical Exam - General General Appearance: Alert, Oriented x3, Cooperative, No acute distress - Head Head exam: Atraumatic, Normocephalic, Normal inspection - Eye Eye exam: Normal appearance, PERRL, EOMI - ENT Throat exam: Normal inspection. negative: Tonsillar erythema, Tonsillar exudate - Neck Neck exam: Normal inspection, Full ROM. negative: Tenderness - Respiratory Respiratory exam: Normal lung sounds bilaterally. negative: Respiratory distress - Cardiovascular Cardiovascular Exam: Regular rate, Normal rhythm, Normal heart sounds - GI/Abdominal GI/Abdominal exam: Soft, Tenderness (There is mild diffuse tenderness in all 4 quads. There is no abdominal distension.). negative: Distended, Rebound, Rigid - Extremities Extremities exam: Normal inspection, Full ROM, Normal capillary refill. negative: Tenderness Course Vital Signs 05/17/18 21:16 Temperature 98.8 F Pulse Rate 112 H Respiratory 16 Rate Blood Pressure 132/83 Pulse Ox 97 - Reevaluation(s) Reevaluation #1: The patient is doing better at this time. She states her pain is improved with the [employer]. I did discuss the normal lab tests and the CT that again demonstrates active Crohn's dz but no SBO. We will consult with her [facility] GI doctors. 05/17/18 23:07 Reevaluation #2: The patient is doing better at this time. She is still having pain but is better. The CT does appear consistent with the previous scans that demonstrated active Crohn's dz but no SBO or perforation. I did discuss the case with Dr. Rangel who is the GI Fellow at [facility] and she does agree with the plan to discharge on her home Prednisone. 05/17/18 23:19 Medical Decision Making - Data Complexity MDM Data: Labs Ordered and/or Reviewed, X-Ray Ordered and/or Reviewed - Lab Data Result diagrams: 05/17/18 21:45 05/17/18 21:45 - Radiology Data Radiology results: Report reviewed (CT: Distal ileum inflammation consistent with active Crohn's Dz. Neg for free air or SBO.) Disposition Disposition: Discharge Clinical Impression: Crohn's colitis Qualifiers: Digestive disease complication type: unspecified complication Qualified Code(s) : K50.119 - Crohn's disease of large intestine with unspecified complications Disposition: Home, Self-Care Condition: (2) Stable Instructions: Crohn Disease (ED) Additional Instructions: Please take your home medicines and restart the oral Prednisone per your GI doctor. Please see your GI doctor at [facility] next week for recheck. Return to the ER for any worsening symptoms. Forms: Patient Portal Access Time of Disposition: 23:40 Quality - Quality Measures Quality Measures: N/A - Blood Pressure Screening View Details: Yes Does Patient Have Any of the Following: No Blood Pressure Classification: Pre-Hypertensive BP Reading Systolic Measurement: 132 Diastolic Measurement: 83 Screening for High Blood Pressure: < Pre-Hypertensive BP, F/U Documented > [ G8950] Pre-Hypertensive Follow-up Interventions: Referral to alternative/primary care provider.
[2018-05-17 21:57] LABS: BASO % 0.3 % (0-6); EOS % 2.1 % (0-6); GRAN % 76.8 % (47-80); HEMATOCRIT 39.8 % (35.0-47.0); HEMOGLOBIN 12.9 gm/dl (11.6-16.0); LYMPH % 14.2 % (16-45); MEAN CELL VOLUME 88.6 fl (81-97); MEAN CORPUSCULAR HEMOGLOBIN 28.7 pg (27-33); MEAN CORPUSCULAR HGB CONC 32.4 g/dl (32-36); MEAN PLATELET VOLUME 8.1 fl (7.4-10.4); MONO % 6.6 % (0-9); PLATELET COUNT 434 K/uL (130-400); RED BLOOD COUNT 4.49 M/uL (3.80-5.40); RED CELL DISTRIBUTION WIDTH 13.9 % (11.5-14.5); WHITE BLOOD COUNT W/O DIFF 12.8 K/uL (4.2-12.2)
[2018-05-17 22:09] LABS: BLOOD UREA NITROGEN 7 mg/dL (6-20); CREATININE 0.8 mg/dL (0.5-0.9); EST GLOMERULAR FILTRATION RATE > 60 mL/min
[2018-05-17 22:10] LABS: TOTAL PROTEIN 6.3 g/dL (6.6-8.7)
[2018-05-17 22:12] LABS: GLUCOSE,RANDOM 104 mg/dL (74-109)
[2018-05-17 22:15] LABS: ALB/GLOB RATIO 1.9 (1.1-1.8); ALBUMIN 4.1 g/dL (4.0-5.0); ALKALINE PHOSPHATASE 57 U/L (35-104); ALT/SGPT 21 U/L (<33); AST/SGOT 17 U/L (10.0-35.0); C-REACTIVE PROTEIN 0.68 mg/dL (<0.5); LIPASE 22 U/L (13-60)
[2018-05-17 22:16] LABS: URINE APPEARANCE CLEAR; URINE BILIRUBIN NEGATIVE (NEGATIVE); URINE BLOOD LARGE (NEGATIVE); URINE COLOR YELLOW; URINE GLUCOSE (UA) NEGATIVE (NEGATIVE); URINE KETONE NEGATIVE (NEGATIVE); URINE LEUKOCYTE ESTERASE NEGATIVE (NEGATIVE); URINE NITRITE NEGATIVE (NEGATIVE); URINE PROTEIN NEGATIVE (NEGATIVE); URINE UROBILINOGEN 0.2 E.U./dL (0.20 - 1.00)
[2018-05-17 22:19] LABS: URINE BACTERIA NONE SEEN; URINE EPITHELIAL CELLS 0 - 2 (FEW); URINE WBC 0 - 2 (0-2/hpf)
[2018-05-17 22:27] LABS: ERYTHROCYTE SEDIMENTATION RATE 13 mm/hr (0-20)
[2018-05-17] MEDS ORDERED: ACETAMINOPHEN 1,000 MG/100 ML BTL IVPB ONE (22:42)
[2018-05-17] MEDS ORDERED: METHYLPREDNISOLONE PF 125MG/VIAL IVP ONE (23:05)
[2018-05-17] MEDS ORDERED: MORPHINE SULFATE 10 MG/ML VIAL IVP ONE (23:18)
== END 2018-05-17 23:48 | disposition home or self-care (01) ==
LOC: ER 21:06
DX: K50.119 Crohn's disease of large intestine with unspecified complications (principal); R11.0 Nausea; Z87.891 Personal history of nicotine dependence
CPT/HCPCS: 99284 ×2; 96374; 96375; 83690; 85025; 85651; 86140; 80053; 81001; 81025; 74176; J2405; J2270; J2930; J7030

== ENCOUNTER 2018-06-01 11:47 | Emergency (ER) | payer MEDICAID ==
--- NOTE | 2018-06-01 12:22 | Emergency Department Record ---
History of Present Illness - General Chief complaint: Rash Stated complaint: RASH/SWOLLEN LYMPH NODES Time Seen by Provider: 06/01/18 12:13 Source: Patient, RN notes reviewed Mode of Arrival: Ambulatory - History of Present Illness Initial comments: lymph nodes in her neck started swelling 3 days ago and yesterday developed a rash and a new medication imuran 250 mg once a day for crohn's disease.( Dr. Cathy Nieves at [facility] [facility]). No sore throats. Imuran started one week ago. No lymph nodes palpated in the axilla or groin. Fever . primary is at [facility] Onset/Timin -: Days(s) Location: Generalized Severity: Moderate Improves with: None Worsens with: None Context: None Associated symptoms: Malaise Treatments Prior to Arrival: None - Related Data Home Medications Medication Instructions Recorded Confirmed Last Taken Azathioprine [Imuran] 50 mg PO DAILY 06/01/18 06/01/18 06/01/18 Previous Rx's Medication Instructions Recorded Hydrocodone/Acetaminophen [[place] 1 - 2 each PO Q6H PRN 3 Days #24 05/03/18 5-325 Tablet] tablet Ondansetron [Zofran Odt] 4 mg SL Q8H PRN #24 tab.rapdis 05/03/18 Allergies Allergy/AdvReac Type Severity Reaction Status Date / Time cephalexin Allergy Mild hives Verified 06/01/18 11:52 Travel Screening - Travel/Exposure Within Last 30 Days Have you traveled within the last 30 days?: No - Travel/Exposure Within Last Year Have you traveled outside the [place] in the last year?: No - Additonal Travel Details Have you been exposed to anyone with a communicable illness?: No - Travel Symptoms Symptom Screening: None Review of Systems Reviewed: No additional complaints except as noted below Constitutional: Reports: As per HPI. Denies: Chills, Fever, Malaise, Night sweats, Weakness, Weight change Eyes: Reports: As per HPI. Denies: Eye discharge, Eye pain, Photophobia, Vision change ENT: Reports: As per HPI. Denies: Congestion, Dental pain, Ear pain, Epistaxis , Hearing loss, Throat pain Respiratory: Reports: As per HPI. Denies: Cough, Dyspnea, Hemoptysis, Stridor, Wheezes Cardiovascular: Reports: As per HPI. Denies: Arrhythmia, Chest pain, Dyspnea on exertion, Edema, Murmurs, Orthopnea, Palpitations, Paroxysmal nocturnal dyspnea, Rheumatic Fever, Syncope Endocrine: Reports: As per HPI. Denies: Fatigue, Heat or cold intolerance, Polydipsia, Polyuria Gastrointestinal: Reports: As per HPI. Denies: Abdominal pain, Constipation, Diarrhea, Hematemesis, Hematochezia, Melena, Nausea, Vomiting Genitourinary: Reports: As per HPI. Denies: Abnormal menses, Discharge, Dyspareunia, Dysuria, Frequency, Hematuria, Incontinence, Retention, Urgency Musculoskeletal: Reports: As per HPI. Denies: Arthralgia, Back pain, Gout, Joint swelling, Myalgia, Neck pain Skin: Reports: As per HPI, Rash (petechial rash). Denies: Bruising, Change in color, Change in hair/nails, Lesions, Pruritus Neurological: Reports: As per HPI. Denies: Abnormal gait, Confusion, Headache, Numbness, Paresthesias, Seizure, Tingling, Tremors, Vertigo, Weakness Psychiatric: Reports: As per HPI. Denies: Anxiety, Auditory hallucinations, Depression, Homicidal thoughts, Suicidal thoughts, Visual hallucinations Hematological/Lymphatic: Reports: As per HPI. Denies: Anemia, Blood Clots, Easy bleeding, Easy bruising, Swollen glands Past Medical History - SOCIAL HISTORY Smoking Status: Former smoker Alcohol Use: Rare Drug Use: None - RESPIRATORY Hx Respiratory Disorders: No - CARDIOVASCULAR Hx Cardio Disorders: No - NEURO Hx Neuro Disorders: No - GI Hx GI Disorders: Yes Hx Crohn's Disease: Yes Hx Obstructive Bowel: Yes - Hx Genitourinary Disorders: Yes Hx Bladder Problem: Yes (mild incontinence) - ENDOCRINE Hx Endocrine Disorders: No - MUSCULOSKELETAL Hx Musculoskeletal Disorders: No - PSYCH Hx Psych Problems: Yes Hx Anxiety: Yes Hx Depression: Yes Comment:: Bipolar - HEMATOLOGY/ONCOLOGY Hx Hematology/Oncology Disorders: No Family Medical History Any Significant Family History?: Yes Family Hx Comment (NOT TO BE USED IN PLACE OF ITEMS BELOW): Mom w/Aids Physical Exam - General General Appearance: Alert, Oriented x3, Cooperative, Mild distress - Head Head exam: Normal inspection - Eye Eye exam: Normal appearance, PERRL Pupils: Normal accommodation - ENT ENT exam: Normal exam, Mucous membranes moist, Normal external ear exam, Normal orophraynx, TM's normal bilaterally Ear exam: Normal external inspection. negative: External canal tenderness Nasal Exam: Normal inspection. negative: Discharge, Sinus tenderness Mouth exam: Normal external inspection, Tongue normal Teeth exam: Normal inspection. negative: Dental caries Throat exam: Normal inspection. negative: Tonsillar erythema, Tonsillar exudate - Neck Neck exam: Normal inspection, Full ROM. negative: Tenderness - Respiratory Respiratory exam: Normal lung sounds bilaterally. negative: Respiratory distress - Cardiovascular Cardiovascular Exam: Regular rate, Normal rhythm, Normal heart sounds - GI/Abdominal GI/Abdominal exam: Soft, Normal bowel sounds. negative: Tenderness - Rectal Rectal exam: Deferred - exam: Deferred - Extremities Extremities exam: Normal inspection, Full ROM, Normal capillary refill. negative: Tenderness - Back Back exam: Reports: Normal inspection, Full ROM. Denies: Muscle spasm, Rash noted, Tenderness - Neurological Neurological exam: Alert, Normal gait, Oriented X3, Reflexes normal - Psychiatric Psychiatric exam: Normal affect, Normal mood - Skin Skin exam: Dry, Intact, Normal color, Warm Course Vital Signs 06/01/18 11:55 Temperature 100.1 F H Pulse Rate 112 H Respiratory 20 Rate Blood Pressure 117/72 Pulse Ox 95 - Reevaluation(s) Reevaluation #1: because of imuran use will admit , immunocomprosmised 06/01/18 16:19 Reevaluation #2: Discussed case with Dr Nelson and will transfer to [facility] 06/01/18 16:32 Medical Decision Making - Data Complexity MDM Data: Labs Ordered and/or Reviewed (wbc 14,100,potassium 3.2,blood culture pending), X-Ray Ordered and/or Reviewed (chest xray negative), EKG Ordered and/ or Reviewed - Lab Data Result diagrams: 06/01/18 12:46 06/01/18 12:46 Disposition Clinical Impression: Sepsis Qualifiers: Sepsis type: sepsis due to unspecified organism Qualified Code(s): A41.9 - Sepsis, unspecified organism Disposition: Acute Care Hospital Transfer Condition: (1) Good Forms: Patient Portal Access Time of Disposition: 16:19 Quality - Quality Measures Quality Measures: N/A - Blood Pressure Screening Does Patient Have Any of the Following: No Blood Pressure Classification: Normal BP Reading Systolic Measurement: 117 Diastolic Measurement: 72 Screening for High Blood Pressure: < Normal BP, F/U Not Required > [G8783]
[2018-06-01 12:55] LABS: BASO % 0.1 % (0-6); EOS % 0.4 % (0-6); HEMATOCRIT 40.7 % (35.0-47.0); HEMOGLOBIN 13.3 gm/dl (11.6-16.0); LYMPH % 7.9 % (16-45); MEAN CELL VOLUME 88.9 fl (81-97); MEAN CORPUSCULAR HGB CONC 32.7 g/dl (32-36); MEAN PLATELET VOLUME 8.2 fl (7.4-10.4); MONO % 6.4 % (0-9); PLATELET COUNT 354 K/uL (130-400); RED BLOOD COUNT 4.58 M/uL (3.80-5.40); RED CELL DISTRIBUTION WIDTH 14.2 % (11.5-14.5); WHITE BLOOD COUNT W/O DIFF 14.1 K/uL (4.2-12.2)
[2018-06-01 13:31] LABS: GLUCOSE,RANDOM 108 mg/dL (74-109)
[2018-06-01 13:41] LABS: BLOOD UREA NITROGEN 10 mg/dL (6-20); CREATININE 0.9 mg/dL (0.5-0.9); EST GLOMERULAR FILTRATION RATE > 60 mL/min
[2018-06-01 14:33] LABS: URINE APPEARANCE CLOUDY; URINE BILIRUBIN SMALL (NEGATIVE); URINE BLOOD LARGE (NEGATIVE); URINE COLOR ORANGE; URINE GLUCOSE (UA) NEGATIVE (NEGATIVE); URINE KETONE 15 mg/dL (NEGATIVE); URINE LEUKOCYTE ESTERASE NEGATIVE (NEGATIVE); URINE NITRITE NEGATIVE (NEGATIVE); URINE UROBILINOGEN 0.2 E.U./dL (0.20 - 1.00)
[2018-06-01 14:43] LABS: URINE BACTERIA NONE SEEN
[2018-06-01] MEDS ORDERED: ACETAMINOPHEN 500 MG TABLET PO ONE (15:40)
[2018-06-01] MEDS ORDERED: 0.9 % SODIUM CHLORIDE 1000ML 1,000 ML IV SCH ×2 (15:45→16:30)
[2018-06-01] MEDS ORDERED: CEFTRIAXONE SODIUM 1 GM in 0.9 % SODIUM CHLORIDE 100ML 100 ML IVPB ONE (15:48)
[2018-06-01] MEDS ORDERED: IBUPROFEN 600 MG TABLET PO ONE (16:40)
--- NOTE | 2018-06-04 08:19 | RADIOLOGY REPORT ---
EXAM: CHEST HISTORY: FEVER WITH DIFFUSE RASH. TECHNIQUE: PA and lateral views of the chest were obtained. Comparison: Chest radiograph 10/24/17. FINDINGS: The cardiac silhouette is within normal size limits. No pulmonary vascular congestion. No focal consolidation, pleural effusion or pneumothorax. Posterior lower lobe granuloma noted on the 10/24/17 comparison, it is not clearly seen on today's examination. Mild multilevel thoracic spine degenerative changes are noted. IMPRESSION: NO ACUTE CHEST FINDINGS. JOB [facility]BER: [id number] [facility]
== END 2018-06-01 18:17 | disposition short-term general hospital (02) ==
LOC: ER 11:47
DX: A41.9 Sepsis, unspecified organism (principal); R59.0 Localized enlarged lymph nodes; R21 Rash and other nonspecific skin eruption; R53.81 Other malaise; R50.81 Fever presenting with conditions classified elsewhere; I95.9 Hypotension, unspecified; K50.90 Crohn's disease, unspecified, without complications; Z79.899 Other long term (current) drug therapy; Z87.891 Personal history of nicotine dependence
CPT/HCPCS: 36416; 71046; 80048; 81001; 82948; 85027; 86308; 87880; 93005; 93010; 96361; 96365; 99285; J7030

== ENCOUNTER 2018-07-23 11:44 | Inpatient (IN) | payer MEDICAID ==
[2018-07-23] MEDS ORDERED: ONDANSETRON HCL IV 4 MG/2 ML VIAL IVP ONE (12:54)
[2018-07-23] MEDS ORDERED: 0.9 % SODIUM CHLORIDE 1,000 ML BAG IV ONE (12:55)
--- NOTE | 2018-07-23 12:59 | Emergency Department Record ---
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 PSH appendectomy 20 years ago, bowel resection 3 feet of small intestines about 10 years ago. Onset/Timin -: Days(s) Migration to: Epigastric Severity: Moderate Severity scale (1-10): 4 Quality: Aching Consistency: Constant, Intermittent - Related Data Previous Rx's Medication Instructions Recorded Ondansetron [Zofran Odt] 4 mg SL Q8H PRN #24 tab.rapdis 05/03/18 Allergies Allergy/AdvReac Type Severity Reaction Status Date / Time cephalexin Allergy Mild hives Verified 07/23/18 11:58 Travel Screening - Travel/Exposure Within Last 30 Days Have you traveled within the last 30 days?: No - Travel/Exposure Within Last Year Have you traveled outside the [place] in the last year?: No - Additonal Travel Details Have you been exposed to anyone with a communicable illness?: No - Travel Symptoms Symptom Screening: None Review of Systems Reviewed: No additional complaints except as noted below Constitutional: Reports: As per HPI. Denies: Chills, Fever, Malaise, Night sweats, Weakness, Weight change Eyes: Reports: As per HPI. Denies: Eye discharge, Eye pain, Photophobia, Vision change ENT: Reports: As per HPI. Denies: Congestion, Dental pain, Ear pain, Epistaxis , Hearing loss, Throat pain Respiratory: Reports: As per HPI. Denies: Cough, Dyspnea, Hemoptysis, Stridor, Wheezes Cardiovascular: Reports: As per HPI. Denies: Arrhythmia, Chest pain, Dyspnea on exertion, Edema, Murmurs, Orthopnea, Palpitations, Paroxysmal nocturnal dyspnea, Rheumatic Fever, Syncope Endocrine: Reports: As per HPI. Denies: Fatigue, Heat or cold intolerance, Polydipsia, Polyuria Gastrointestinal: Reports: As per HPI, Abdominal pain, Nausea, Vomiting. Denies : Constipation, Diarrhea, Hematemesis, Hematochezia, Melena Genitourinary: Reports: As per HPI. Denies: Abnormal menses, Discharge, Dyspareunia, Dysuria, Frequency, Hematuria, Incontinence, Retention, Urgency Musculoskeletal: Reports: As per HPI. Denies: Arthralgia, Back pain, Gout, Joint swelling, Myalgia, Neck pain Skin: Reports: As per HPI. Denies: Bruising, Change in color, Change in hair/ nails, Lesions, Pruritus, Rash Neurological: Reports: As per HPI. Denies: Abnormal gait, Confusion, Headache, Numbness, Paresthesias, Seizure, Tingling, Tremors, Vertigo, Weakness Psychiatric: Reports: As per HPI. Denies: Anxiety, Auditory hallucinations, Depression, Homicidal thoughts, Suicidal thoughts, Visual hallucinations Hematological/Lymphatic: Reports: As per HPI. Denies: Anemia, Blood Clots, Easy bleeding, Easy bruising, Swollen glands Past Medical History - SOCIAL HISTORY Smoking Status: Former smoker Alcohol Use: Occasional Drug Use: None - RESPIRATORY Hx Respiratory Disorders: No - CARDIOVASCULAR Hx Cardio Disorders: No - NEURO Hx Neuro Disorders: No - GI Hx GI Disorders: Yes Hx Crohn's Disease: Yes Hx Obstructive Bowel: Yes Comment:: recent sepsis admission - Hx Genitourinary Disorders: Yes Hx Bladder Problem: Yes (mild incontinence) - ENDOCRINE Hx Endocrine Disorders: No - MUSCULOSKELETAL Hx Musculoskeletal Disorders: No - PSYCH Hx Psych Problems: Yes Hx Anxiety: Yes Hx Depression: Yes Comment:: Bipolar - HEMATOLOGY/ONCOLOGY Hx Hematology/Oncology Disorders: No Family Medical History Any Significant Family History?: Yes Family Hx Comment (NOT TO BE USED IN PLACE OF ITEMS BELOW): Mom w/Aids Physical Exam - General General Appearance: Alert, Oriented x3, Cooperative, Mild distress - Head Head exam: Normal inspection - Eye Eye exam: Normal appearance, PERRL Pupils: Normal accommodation - ENT ENT exam: Normal exam, Mucous membranes moist, Normal external ear exam, Normal orophraynx, TM's normal bilaterally Ear exam: Normal external inspection. negative: External canal tenderness Nasal Exam: Normal inspection. negative: Discharge, Sinus tenderness Mouth exam: Normal external inspection, Tongue normal Teeth exam: Normal inspection. negative: Dental caries Throat exam: Normal inspection. negative: Tonsillar erythema, Tonsillar exudate - Neck Neck exam: Normal inspection, Full ROM. negative: Tenderness - Respiratory Respiratory exam: Normal lung sounds bilaterally. negative: Respiratory distress - Cardiovascular Cardiovascular Exam: Regular rate, Normal rhythm, Normal heart sounds - GI/Abdominal GI/Abdominal exam: Soft, Diminished bowel sounds, Distended, Tenderness (right upper quad pain and all four quads hurt). negative: Guarding - Rectal Rectal exam: Deferred - exam: Deferred - Extremities Extremities exam: Normal inspection, Full ROM, Normal capillary refill. negative: Tenderness - Back Back exam: Reports: Normal inspection, Full ROM. Denies: Muscle spasm, Rash noted, Tenderness - Neurological Neurological exam: Alert, Normal gait, Oriented X3, Reflexes normal - Psychiatric Psychiatric exam: Normal affect, Normal mood - Skin Skin exam: Dry, Intact, Normal color, Warm Course Vital Signs 07/23/18 11:50 Temperature 97.7 F Pulse Rate 106 H Respiratory 16 Rate Blood Pressure 119/94 Pulse Ox 98 - Reevaluation(s) Reevaluation #1: patient has had two loose stool since coming to the ED 07/23/18 17:14 Reevaluation #2: discussed case with Dr. Lindsay and will watch at [facility] and if she is worse will recontact him as needed 07/23/18 17:22 Medical Decision Making - Data Complexity MDM Data: Labs Ordered and/or Reviewed, X-Ray Ordered and/or Reviewed (CT of abd moderate SBO by a nodular stricture by the illeocolic anastamosis) - Lab Data Result diagrams: 07/23/18 13:10 07/23/18 13:10 Disposition Clinical Impression: Hypokalemia, SBO (small bowel obstruction) Decision to Admit: Admit from ER Condition: (2) Stable Forms: Patient Portal Access Time of Disposition: 17:17 Quality - Quality Measures Quality Measures: N/A - Blood Pressure Screening Does Patient Have Any of the Following: No Blood Pressure Classification: Hypertensive Reading Systolic Measurement: 119 Diastolic Measurement: 94 Screening for High Blood Pressure: < Pre-Hypertensive BP, F/U Documented > [ G8950] Pre-Hypertensive Follow-up Interventions: Referral to alternative/primary care provider.
[2018-07-23] MEDS ORDERED: KETOROLAC 30 MG/ML VIAL IVP ONE (13:00)
[2018-07-23 13:17] LABS: HEMOGLOBIN 13.6 gm/dl (11.6-16.0); MEAN CELL VOLUME 85.2 fl (81-97); MEAN CORPUSCULAR HEMOGLOBIN 28.3 pg (27-33); MEAN CORPUSCULAR HGB CONC 33.2 g/dl (32-36); MEAN PLATELET VOLUME 8.2 fl (7.4-10.4); PLATELET COUNT 523 K/uL (130-400); RED BLOOD COUNT 4.81 M/uL (3.80-5.40); RED CELL DISTRIBUTION WIDTH 14.4 % (11.5-14.5); WHITE BLOOD COUNT W/O DIFF 9.2 K/uL (4.2-12.2)
[2018-07-23 13:37] LABS: ALBUMIN 4.3 g/dL (4.0-5.0); ALKALINE PHOSPHATASE 90 U/L (35-104); ALT/SGPT 14 U/L (<33); AST/SGOT 14 U/L (10.0-35.0); BLOOD UREA NITROGEN 26 mg/dL (6-20); CREATININE 1.2 mg/dL (0.5-0.9); EST GLOMERULAR FILTRATION RATE 53 mL/min; GLUCOSE,RANDOM 104 mg/dL (74-109); LIPASE 28 U/L (13-60); PLATELET ESTIMATE INCREASED (NORMAL)
[2018-07-23 13:44] LABS: BILIRUBIN,DIRECT < 0.2 mg/dL (0-0.3)
[2018-07-23] MEDS ORDERED: HYDROMORPHONE HCL 2 MG/ML VIAL IVP ONE (14:41)
[2018-07-23] MEDS ORDERED: POTASSIUM CHL 20MEQ IN 1L NS 20 MEQ/1,000 ML BAG IV ONE (14:42)
[2018-07-23] MEDS ORDERED: MAGNESIUM HYDROXIDE 30 ML UDC PO ONE (17:25)
[2018-07-23] MEDS ORDERED: ALBUTEROL HFA 8 GM INHALER INH SCH (17:45)
[2018-07-23 18:25] LABS: URINE APPEARANCE SL CLOUDY; URINE BILIRUBIN NEGATIVE (NEGATIVE); URINE BLOOD SMALL (NEGATIVE); URINE COLOR YELLOW; URINE GLUCOSE (UA) NEGATIVE (NEGATIVE); URINE KETONE NEGATIVE (NEGATIVE); URINE LEUKOCYTE ESTERASE NEGATIVE (NEGATIVE); URINE NITRITE NEGATIVE (NEGATIVE); URINE PROTEIN TRACE (NEGATIVE); URINE UROBILINOGEN 0.2 E.U./dL (0.20 - 1.00)
[2018-07-23 18:32] LABS: URINE WBC NONE SEEN (0-2/hpf)
[2018-07-23] MEDS: HYDROMORPHONE HCL 2 MG/ML VIAL IV PRN ×2 (18:41→22:42)
[2018-07-23] MEDS ORDERED: ALBUTEROL HFA 8 GM INHALER INH PRN (18:49)
[2018-07-23] MEDS: POTASSIUM CHLORIDE/D5-0.9%NACL 20 MEQ/1,000 ML BAG IV SCH (18:58)
[2018-07-23] MEDS: ACETAMINOPHEN 325 MG TAB PO PRN (20:31)
[2018-07-23] MEDS: DIPHENHYDRAMINE HCL 25 MG CAPSULE PO PRN (21:56)
[2018-07-23] MEDS: MELATONIN 5 MG TABLET PO SCH (21:57)
[2018-07-23] MEDS: LAMOTRIGINE 100 MG TABLET PO SCH (21:57)
[2018-07-23] MEDS: TRAZODONE 50 MG TABLET PO SCH (21:57)
[2018-07-23] MEDS ORDERED: TRAZODONE 50 MG TABLET PO PRN (22:00)
--- NOTE | 2018-07-23 22:36 | RADIOLOGY REPORT ---
EXAM: ABDOMEN 2 VIEW HISTORY: ABDOMINAL PAIN, CRAMPING, PARTICULARLY RIGHT UPPER QUADRANT. CROHN'S DISEASE. TECHNIQUE: Supine and upright views of the abdomen. COMPARISON: No prior abdomen series. FINDINGS: Post-op changes are seen in the right upper quadrant of the abdomen. There are several mildly dilated loops of small bowel demonstrated and air- fluid levels in the upright view. Relatively little gaseous distention of the colon. Findings suggest developing small bowel obstruction. No definite free intraperitoneal air identified. Minor thoracolumbar curve convex to the right. IMPRESSION: 1. DILATED LOOPS OF SMALL BOWEL DEMONSTRATED AND AIR-FLUID LEVELS SUGGESTING A DEVELOPING SMALL BOWEL OBSTRUCTION. 2. POST-OP CHANGES RIGHT UPPER QUADRANT OF THE ABDOMEN. JOB [facility]BER: [id number] [facility]
[2018-07-23] MEDS: ONDANSETRON HCL IV 4 MG/2 ML VIAL IVP PRN (22:43)
--- NOTE | 2018-07-23 23:24 | CT SCAN REPORT ---
EXAM: CT SCAN ABDOMEN/PELVIS W CONTRAST HISTORY: HYPOKALEMIA, SBO. TECHNIQUE: After the administration of oral and 100 mL of Omnipaque-350 intravenous contrast, axial images are obtained from the dome of the diaphragm to the symphysis pubis. COMPARISON: The examination is compared to a prior study of 05/17/2018. FINDINGS: The lung bases and pleural spaces are clear. The liver is unremarkable in size and shape without focal mass or biliary dilatation. The gallbladder is normal. The pancreas is free of focal mass or pancreatic ductal dilatation. The spleen is within normal limits. The adrenal glands and kidneys are within normal limits without focal mass or hydronephrosis. There is no mesenteric mass, retroperitoneal adenopathy, or vascular lesion. The small bowel is moderately dilated. The site of obstruction is at the ileocolic anastomosis, where the mucosa of the small bowel is narrowed and nodular with irregular stenotic change. Beyond this, the colon is unremarkable to the level of the rectum. No mesenteric inflammatory change is identified. There is no ascites or free air. The pelvis is unremarkable. The skeleton and abdominal wall are within normal limits. IMPRESSION: THE FINDINGS ON THE EXAM ARE THOSE OF A SMALL BOWEL OBSTRUCTION SECONDARY TO AN ANASTOMOTIC STRICTURE. THE MUCOSA OF THE SMALL BOWEL IS NODULAR AND IRREGULAR AT THE ANASTOMOSIS. MAXIMUM SMALL BOWEL DILATATION IS APPROXIMATELY 6 CM. THERE IS NO ADDITIONAL SMALL BOWEL WALL THICKENING. JOB NUMBER: [id number] [facility]
[2018-07-24] MEDS: POTASSIUM CHLORIDE/D5-0.9%NACL 20 MEQ/1,000 ML BAG IV SCH ×2 (02:58→12:30)
[2018-07-24] MEDS: HYDROMORPHONE HCL 2 MG/ML VIAL IV PRN ×6 (03:01→23:29)
[2018-07-24] MEDS: ONDANSETRON HCL IV 4 MG/2 ML VIAL IVP PRN ×6 (03:06→23:30)
[2018-07-24] MEDS: ACETAMINOPHEN 325 MG TAB PO PRN (05:47)
[2018-07-24] MEDS: DIPHENHYDRAMINE HCL 25 MG CAPSULE PO PRN (05:47)
[2018-07-24 06:24] LABS: CREATININE 1.1 mg/dL (0.5-0.9)
[2018-07-24] MEDS ORDERED: POTASSIUM CHLORIDE 20 MEQ TABLET PO ONE (08:44)
[2018-07-24] MEDS: DIPHENHYDRAMINE HCL 50 MG/ML VIAL IVP PRN ×3 (09:50→23:40)
[2018-07-24] MEDS: VENLAFAXINE ER 75 MG CAPSULE PO SCH (09:52)
[2018-07-24] MEDS: BUPROPION HCL 150 MG TAB.SR.12H PO SCH (09:52)
[2018-07-24] MEDS: POLYETHYLENE GLY 17 GM PACKET PO SCH ×2 (09:52→21:51)
[2018-07-24] MEDS: ENOXAPARIN 40 MG/0.4 ML SYR SC SCH (09:52)
[2018-07-24] MEDS: ARIPIPRAZOLE 15 MG PO SCH (10:06)
[2018-07-24] MEDS: LAMOTRIGINE 100 MG TABLET PO SCH (21:51)
[2018-07-24] MEDS: TRAZODONE 50 MG TABLET PO SCH (21:51)
[2018-07-24] MEDS: MELATONIN 5 MG TABLET PO SCH (21:51)
[2018-07-25] MEDS: HYDROMORPHONE HCL 2 MG/ML VIAL IV PRN ×5 (03:19→21:36)
[2018-07-25] MEDS: ONDANSETRON HCL IV 4 MG/2 ML VIAL IVP PRN ×5 (03:20→21:36)
[2018-07-25 07:00] LABS: CREATININE 1.1 mg/dL (0.5-0.9)
--- NOTE | 2018-07-25 08:32 | RADIOLOGY REPORT ---
EXAM: ABDOMEN SERIES HISTORY: PATIENT HAS UPPER ABDOMINAL PAIN AND NAUSEA. FOLLOW-UP ONE DAY. TECHNIQUE: Two views of the abdomen are provided along with the comparison CT scan of the abdomen and pelvis dated 07/23/18. FINDINGS: The dilated loops of small bowel with air fluid levels are again identified on the current examination. These findings suggest high grade partial small bowel obstruction, most likely at the ileocolic anastomosis. Nonspecific air fluid levels are identified within the colon. No free air is noted. Contrast is noted within the urinary bladder. IMPRESSION: FINDINGS ARE SUSPICIOUS FOR HIGH GRADE PARTIAL SMALL BOWEL OBSTRUCTION AT THE ILEOCOLIC ANASTOMOSIS WITHIN THE RIGHT UPPER QUADRANT OF THE ABDOMEN. FOLLOW- UP KUB CAN BE OBTAINED TO DOCUMENT RESOLUTION OF FINDINGS. JOB NUMBER: [id number] [facility]
[2018-07-25] MEDS: VENLAFAXINE ER 75 MG CAPSULE PO SCH (10:04)
[2018-07-25] MEDS: BUPROPION HCL 150 MG TAB.SR.12H PO SCH (10:05)
[2018-07-25] MEDS: POLYETHYLENE GLY 17 GM PACKET PO SCH ×2 (10:05→21:37)
[2018-07-25] MEDS: ENOXAPARIN 40 MG/0.4 ML SYR SC SCH (10:05)
[2018-07-25] MEDS: ARIPIPRAZOLE 15 MG PO SCH (10:07)
[2018-07-25] MEDS: KETOROLAC 30 MG/ML VIAL IVP PRN ×2 (11:52→20:23)
--- NOTE | 2018-07-25 12:48 | RADIOLOGY REPORT ---
EXAM: ABDOMEN, TWO VIEWS HISTORY: SMALL BOWEL OBSTRUCTION, LEFT MID ABDOMINAL PAIN, NAUSEA AND VOMITING. TECHNIQUE: Supine and upright views of the abdomen were obtained. Comparison: Abdomen series 07/24/18. Report of the prior study not as yet available with PACS. FINDINGS: Since yesterday's study there has bee progressive gaseous distention in the small bowel which now measures up to approximately 8 cm in diameter in the left mid abdomen. Numerous air fluid levels again seen. Relatively little colonic distention and findings suggest progressive small bowel obstruction. The hemidiaphragm is not included on this study and consequently this exam is not adequate for excluding free intraperitoneal air. Postop changes right mid abdomen including a surgical clip medially and some wire suture laterally. Minor thoracolumbar curve to the right. Questionable air in the biliary tree in the left side of the liver. This appearance may just be due to overlapping structures. IMPRESSION: 1. FINDINGS CONSISTENT WITH PROGRESSIVE SMALL BOWEL OBSTRUCTION SINCE YESTERDAY WITH THE SMALL BOWEL IN THE LEFT MID ABDOMEN NOW DISTENDED UP TO A DIAMETER OF 8 CM. 2. POSTOP CHANGES RIGHT MID ABDOMEN. 3. HEMIDIAPHRAGMS NOT INCLUDED ON THIS STUDY AND CONSEQUENTLY THE EXAM IS NOT ADEQUATE FOR EVALUATION FOR FREE INTRAPERITONEAL AIR. JOB NUMBER: [id number] [facility]
[2018-07-25] MEDS ORDERED: SIMETHICONE 80 MG TAB.CHEW PO ONE (17:46)
[2018-07-25] MEDS: 0.9 % SODIUM CHLORIDE 1000ML 1,000 ML IV PRN (19:27)
[2018-07-25] MEDS: MELATONIN 5 MG TABLET PO SCH (21:37)
[2018-07-25] MEDS: LAMOTRIGINE 100 MG TABLET PO SCH (21:37)
[2018-07-25] MEDS: TRAZODONE 50 MG TABLET PO SCH (21:37)
[2018-07-26] MEDS: HYDROMORPHONE HCL 2 MG/ML VIAL IV PRN ×2 (02:55→07:31)
[2018-07-26] MEDS: ONDANSETRON HCL IV 4 MG/2 ML VIAL IVP PRN ×2 (02:55→07:32)
[2018-07-26] MEDS: 0.9 % SODIUM CHLORIDE 1000ML 1,000 ML IV PRN ×3 (05:29→16:23)
[2018-07-26 07:23] LABS: HEMATOCRIT 35.9 % (35.0-47.0); HEMOGLOBIN 11.7 gm/dl (11.6-16.0)
[2018-07-26 07:37] LABS: CREATININE 1.2 mg/dL (0.5-0.9)
[2018-07-26] MEDS: ARIPIPRAZOLE 15 MG PO SCH (09:23)
[2018-07-26] MEDS: POLYETHYLENE GLY 17 GM PACKET PO SCH ×2 (09:26→22:31)
[2018-07-26] MEDS: BUPROPION HCL 150 MG TAB.SR.12H PO SCH (09:27)
[2018-07-26] MEDS: ENOXAPARIN 40 MG/0.4 ML SYR SC SCH (09:27)
[2018-07-26] MEDS: VENLAFAXINE ER 75 MG CAPSULE PO SCH (09:28)
[2018-07-26] MEDS: KETOROLAC 30 MG/ML VIAL IVP PRN ×2 (09:28→17:40)
[2018-07-26] MEDS ORDERED: POTASSIUM CHLORIDE 20 MEQ TABLET PO ONE (10:03)
[2018-07-26] MEDS: HYDROMORPHONE HCL 2 MG/ML VIAL IVP PRN ×4 (11:35→23:42)
[2018-07-26] MEDS: ACETAMINOPHEN 325 MG TAB PO PRN (14:49)
[2018-07-26] MEDS: METOCLOPRAMIDE HCL 10 MG/2 ML VIAL IVP PRN ×2 (17:38→23:42)
[2018-07-26] MEDS ORDERED: CALCIUM CARBONATE 500 MG TAB.CHEW PO PRN (17:48)
[2018-07-26] MEDS: TRAZODONE 50 MG TABLET PO SCH (22:29)
[2018-07-26] MEDS: MELATONIN 5 MG TABLET PO SCH (22:29)
[2018-07-26] MEDS: LAMOTRIGINE 100 MG TABLET PO SCH (22:29)
[2018-07-26] MEDS: DIPHENHYDRAMINE HCL 25 MG CAPSULE PO PRN (23:41)
[2018-07-27] MEDS: HYDROMORPHONE HCL 2 MG/ML VIAL IVP PRN ×2 (03:38→08:04)
[2018-07-27 06:01] LABS: HEMATOCRIT 33.9 % (35.0-47.0); HEMOGLOBIN 11.3 gm/dl (11.6-16.0)
[2018-07-27] MEDS: METOCLOPRAMIDE HCL 10 MG/2 ML VIAL IVP PRN (08:09)
[2018-07-27] MEDS: POLYETHYLENE GLY 17 GM PACKET PO SCH (09:36)
[2018-07-27] MEDS: VENLAFAXINE ER 75 MG CAPSULE PO SCH (09:36)
[2018-07-27] MEDS: ENOXAPARIN 40 MG/0.4 ML SYR SC SCH (09:36)
[2018-07-27] MEDS: KETOROLAC 30 MG/ML VIAL IVP PRN (09:38)
[2018-07-27] MEDS: ARIPIPRAZOLE 15 MG PO SCH (09:48)
[2018-07-27] MEDS: 0.9 % SODIUM CHLORIDE 1000ML 1,000 ML IV PRN (12:02)
[2018-07-27] MEDS: BUPROPION HCL 150 MG TAB.SR.12H PO SCH (12:35)
--- NOTE | 2018-07-27 13:42 | Discharge Note ---
VTE H&P Assessment - Risk for VTE Risk for VTE: Yes Risk Level: Moderate Risk Assessment Date: 07/23/18 Risk Assessment Time: 20:00 VTE Orders Placed or Will Be Placed: Yes Discharge Medications - Discharge Medications Prescriptions: Dicyclomine HCl [Bentyl] 10 mg PO Q8H #30 cap Hydrocodone/APAP 5/325Mg [[place] 5Mg/325Mg] 1 each PO Q6H #10 tab Polyethylene Glycol 3350 [Miralax] 17 gm PO BID #1 bottle Home Medications: Ambulatory Orders Albuterol Sulfate [Proair Hfa] 2 puff IH Q4H PRN inhaler 10/24/17 [Last Taken 1 Day Ago ~07/22/18] Lamotrigine [Lamictal] 100 mg PO QHS tab 10/24/17 [Last Taken 1 Day Ago ~] Venlafaxine HCl [Effexor Xr] 75 mg PO QD cap 10/24/17 [Last Taken 1 Day Ago ~] Aripiprazole 15 mg PO DAILY 05/01/18 [Last Taken 1 Day Ago ~07/22/18] Bupropion HCl [Bupropion Xl] 300 mg PO QAM 05/01/18 [Last Taken 1 Day Ago ~07/22] Ondansetron [Zofran Odt] 4 mg SL Q8H PRN #24 tab.rapdis 05/03/18 [Last Taken 1 Day Ago ~07/22/18] Melatonin 10 mg PO QHS 07/23/18 [Last Taken Unknown] Trazodone HCl 100 mg PO QHS 07/23/18 [Last Taken Unknown] Dicyclomine HCl [Bentyl] 10 mg PO Q8H #30 cap 07/27/18 [Last Taken Unknown] Hydrocodone/APAP 5/325Mg [[place] 5Mg/325Mg] 1 each PO Q6H #10 tab 07/27/18 [Last Taken Unknown] Polyethylene Glycol 3350 [Miralax] 17 gm PO BID #1 bottle 07/27/18 [Last Taken Unknown] Discharge Note - Date Date of Discharge Note: 07/27/18 Disposition: Home, Self-Care Condition: (2) Stable Instructions: Crohn Disease (GEN), Hypokalemia (GEN), Bowel Resection (DC), Bowel Obstruction (DC), Bowel Obstruction (GEN) Additional Instructions: follow up with family Dr in 5 days increase diet slowly use bananas, rice, applesauce toast and yogurt and bland foods Referrals: MARTÍN YEPEZ M.D. [Primary Care Provider] - Forms: Patient Portal Access Activity at Discharge: Increase Activity as Tolerated
--- NOTE | 2018-07-30 09:40 | History and Physical Report ---
DATE: 07/23/18 CHIEF COMPLAINT: Abdominal pain, vomiting, abdominal distention. HISTORY OF PRESENT ILLNESS: This 37-year-old female presented to the emergency department with abdominal pain for 7 days with vomiting initially and then some pain and diarrhea 2 times a day since it started with Crohn disease as a history. Appendectomy 20 years ago, bowel resection with 3 feet of her small intestine removed about 10 years ago. She has had partial small bowel obstruction in the past which opened up conservatively. She was evaluated in the emergency department by me with a diagnosis of moderate small bowel obstruction and hypokalemia. CT scan revealed moderate small bowel obstruction by nodule stricture by the ileocolonic anastomosis. Potassium is 3.1. PAST MEDICAL HISTORY: She has had Crohn disease, sepsis, partial small bowel obstruction, incontinence of urine. She is bipolar. Depression. PAST SURGICAL HISTORY: Colon resection, appendectomy laparoscopic, breast reduction approximately 1 month ago. MEDICATIONS: 1. Effexor 75 mg daily. 2. Zofran 4 mg sublingual q.8 h. p.r.n. 3. Lamictal 100 mg q.h.s. 4. Bupropion HCl 300 mg q.a.m. 5. Aripiprazole 15 mg daily. 6. ProAir inhaler 2 puffs q.4 h. p.r.n. ALLERGIES: KEFLEX. FAMILY HISTORY: Unremarkable. SOCIAL HISTORY: She is a former smoker. She quit in December 2017. No drug use. Occasional alcohol use. REVIEW OF SYSTEMS: HEENT: No upper respiratory infection symptoms, cough, cold, or congestion. Cardiovascular: No chest pain, palpitations, or arrhythmia. Respiratory: No shortness of breath, cough, cold, or congestion. Gastrointestinal: See Chief Complaint. She has nausea, vomiting, abdominal pain, and loose stools x2 today in the emergency department and she says twice a day for the last 6 days. Genitourinary: No dysuria, hematuria, frequency, or burning on urination. Musculoskeletal: She has arthritis in her back and joints. Neurological: No CVA, paralysis, or paresthesias. Endocrine: No diabetes or thyroid disease. Integument: No rash, ulcers, change in moles, or yellow skin. PHYSICAL EXAMINATION: VITALS: Height 5 feet 6 inches, weight 200 pounds. Temperature 98.1, pulse 103, blood pressure 120/89, respiratory rate 18, pulse ox 96% on room air. HEENT: Pupils are equal, round, and reactive to light and accommodation. Extraocular muscles are intact. Throat is clear. Nose is clear. Tympanic membranes are [place]. NECK: Supple. No jugular venous distention. No hepatojugular reflux. Carotid pulses are equal bilaterally. CARDIOVASCULAR: Regular rate and rhythm without murmurs, clicks, rubs, or gallops. RESPIRATORY: Bilateral breath sounds equal bilaterally. No wheezes, rales, or rhonchi. ABDOMEN: Distended. There is pain in mostly right upper quadrant but all 4 quadrants are bloated and distended with pain on palpation. Soft. No rigidity, rebound but she is bloated. She has scars on her abdomen that go along with her surgical history. GYNECOLOGICAL: Exam deferred. RECTAL: Exam deferred. MENTAL STATUS: Alert and oriented x3. ASSESSMENT: 1. Moderate small bowel obstruction most likely partial because she has had 2 loose stools in the ER. 2. Crohn disease. 3. Bipolar. 4. Depression. PLAN: Admit to the hospital for fluids, pain medications, and further evaluation. Discussed the case with surgeon on-call, Dr. Lindsay. He said if she gets worse, give him a call back. He is on-call all weekend through the holiday weekend of . [place]
--- NOTE | 2018-07-30 10:10 | Discharge Summary ---
DATE OF ADMISSION: DATE OF DISCHARGE: Surgeon: Teddy Malhotra DO DISCHARGE DIAGNOSES: 1. Partial small bowel obstruction. 2. History of Crohn's disease. 3. History of small bowel resection, 3 feet, approximately 10 years ago. REASON FOR HOSPITALIZATION: Vomiting, abdominal pain. HISTORY OF PRESENT ILLNESS: This 37-year-old female presented to the emergency department. She stated that her abdominal pain started about 7 days prior to presenting to the emergency department. She developed thin diarrhea 2 times per day and she has Crohn's disease. She was evaluated in the emergency department by myself with a CAT scan and abdominal x-rays, which revealed a partial small bowel obstruction. She was admitted to the hospital for further evaluation and possible surgical consultation. Phone consultation was done with Dr. Lindsay. He said it would be best just to watch her and see if she opens up on her own, if she does not he would be available all week and we can transfer to [facility] and he would re-evaluate her. The patient chose to stay at our hospital here, rather than going to [facility]. SIGNIFICANT FINDINGS: CAT scan of her abdomen. Findings on the exam are those of small bowel obstruction secondary to an anastomosis stricture of the mucosa of the small bowel, it is nodular and irregular at the anastomosis, maximum small bowel dilation is approximately 6 cm. There is no additional small bowel wall thickening. Abdominal x-ray done in the emergency department revealed dilated loops of small bowel, demonstrated with air-fluid level, suggestive of developing small bowel obstruction. Postop changes right upper quadrant of the abdomen. Serial abdominal x-rays were obtained. Findings were consistent with high grade partial small bowel obstruction at the ileocolic anastomosis in the right upper quadrant of the abdomen. Followup KUB can be obtained to document resolution of findings. On 07/25 findings consistent with aggressive small bowel obstruction, suggestive small bowel on the left, mid abdomen now distended up to the diameter of 8 cm, postop changes right mid abdomen, mid diaphragm, hemidiaphragms are not included in this study, consequently the exam is not adequate for evaluation of free inter-peritoneal air. The patient, the night before discharge, she started passing lots of gas and she is having bowel movements consistent the way she normally has bowel movements and she was feeling much better on the day of discharge. LABORATORY: Her hemoglobin remained stable throughout. Her discharge electrolytes: Sodium is 136, potassium is 3.4, chloride is 94, BUN is 19, creatine is 1.2, glucose is 85. Urine showing epithelial cells, 10 to 15, RBCs 3 to 6. White cell was 9200, hemoglobin was 13.6 in the emergency department. THERAPY PROVIDED: The patient was given IV fluids and as she started to feel better less vomiting. Clear liquids are started twice and then she vomited again. Pain controlled with Dilaudid. On the day of discharge she was feeling much better. She passed a lot of gas. Her stooling is back to normal. She is feeling much better, abdomen is much softer, and at this point I felt it was clinically okay to discharge the patient. Follow up with her family doctor and her Crohn's doctor at [facility]. HOSPITAL COURSE: The patient gradually improved her partial small bowel obstruction. CONDITION AT DISCHARGE: Much improved. DISCHARGE INSTRUCTIONS: 1. Follow up with her family doctor, which [place] [facility] She is also to follow up with her Crohn's doctor at [facility] 2. Prescription of Bentyl 10 mg q.8 hours was given to the patient for abdominal pain, also a small prescription of hydrocodone, 5 mg q.6 hours, 10 tablets dispensed. 3. I advised her to continue using MiraLax 17 grams b.i.d. to keep her bowel movements moving and to continue her home medications of Albuterol ProAir inhaler, 2 puffs q.4 hours p.r.n. 4. Lamictal 100 mg at bedtime. 5. Effexor XR 75 mg daily. 6. Aripiprazole 15 mg once a day. 7. Bupropion HCl XL, 300 mg daily. 8. Zofran q.8 hours p.r.n. 9. Melatonin 10 mg at bedtime. 10. Trazodone 100 mg at bedtime. 11. The patient is to follow up with her family doctor in 2 to 5 days. 12. Follow up with Crohn's doctor as soon as possible. [place]
== END 2018-07-27 14:21 | disposition home or self-care (01) | DRG 872 ==
LOC: ER 11:44 → MEDSURG 17:55
PROVIDERS: ADMIT Emergency Medicine; ATTEND Emergency Medicine
DX: A41.9 Sepsis, unspecified organism (principal); K50.90 Crohn's disease, unspecified, without complications; R10.84 Generalized abdominal pain; E87.6 Hypokalemia; R11.2 Nausea with vomiting, unspecified; Z87.891 Personal history of nicotine dependence; Z87.19 Personal history of other diseases of the digestive system
CPT/HCPCS: 74019; 74177; 80048; 80076; 81001; 81025; 83690; 85014; 85018; 85027; 96361; 96365; 96366; 96375; 99223; 99232; 99239; 99285; J1200; J1650; J1885; J2405; J2765; J3480; J3490; J7030

== ENCOUNTER 2018-07-30 19:32 | Inpatient (IN) | payer MEDICAID ==
[2018-07-30] MEDS ORDERED: ONDANSETRON HCL IV 4 MG/2 ML VIAL IVP ONE (19:48)
[2018-07-30] MEDS ORDERED: MORPHINE SULFATE 10 MG/ML VIAL IVP ONE (19:49)
--- NOTE | 2018-07-30 19:54 | Emergency Department Record ---
History of Present Illness - General Stated Complaint: VOMITING,ABDOMINAL PAIN Time Seen by Provider: 07/30/18 19:32 Source: Patient Mode of Arrival: Ambulatory Limitations: No limitations - History of Present Illness Initial Comments: 37 yo female presents to ED for evaluation of diffuse abdominal pain, nausea, vomiting, and bloating that began earlier today. Patient reports a history of crohn's disease with recent SBO earlier this month, symptoms were similar to previous. Patient denies fevers, chills, or urinary symptoms. Patient does report partial colectomy approximately 10 years ago. MD Complaint: Abdominal pain Onset/Timin -: Days(s) Location: Diffuse Migration to: Periumbilical Severity: Moderate Quality: Cramping Consistency: Constant Improves With: Nothing Worsens With: Vomiting Context: Other Associated Symptoms: Nausea, Vomiting - Related Data Patient : No Previous Rx's Medication Instructions Recorded Ondansetron [Zofran Odt] 4 mg SL Q8H PRN #24 tab.rapdis 05/03/18 Dicyclomine HCl [Bentyl] 10 mg PO Q8H #30 cap 07/27/18 Hydrocodone/APAP 5/325Mg [[place] 1 each PO Q6H #10 tab 07/27/18 5Mg/325Mg] Polyethylene Glycol 3350 [Miralax] 17 gm PO BID #1 bottle 07/27/18 Allergies Allergy/AdvReac Type Severity Reaction Status Date / Time cephalexin Allergy Mild hives Verified 07/23/18 11:58 hydromorphone [From Dilaudid] AdvReac VOMITING Verified 07/30/18 20:21 Review of Systems Constitutional: Denies: Chills, Fever, Malaise, Night sweats Eyes: Denies: Eye discharge, Eye pain ENT: Denies: Congestion, Ear pain, Epistaxis Respiratory: Denies: Cough, Dyspnea Cardiovascular: Denies: Chest pain, Dyspnea on exertion Endocrine: Denies: Fatigue, Heat or cold intolerance Gastrointestinal: Reports: Abdominal pain, Nausea, Vomiting Genitourinary: Denies: Incontinence, Retention Musculoskeletal: Denies: Arthralgia, Back pain Skin: Denies: Bruising, Change in color Neurological: Denies: Abnormal gait, Confusion, Headache, Seizure Psychiatric: Denies: Anxiety Hematological/Lymphatic: Denies: Anemia, Blood Clots Past Medical History - SOCIAL HISTORY Smoking Status: Former smoker - RESPIRATORY Hx Respiratory Disorders: No - CARDIOVASCULAR Hx Cardio Disorders: No - NEURO Hx Neuro Disorders: No - GI Hx GI Disorders: Yes Hx Crohn's Disease: Yes Hx Obstructive Bowel: Yes Comment:: recent sepsis admission - Hx Genitourinary Disorders: Yes Hx Bladder Problem: Yes (mild incontinence) - ENDOCRINE Hx Endocrine Disorders: No - MUSCULOSKELETAL Hx Musculoskeletal Disorders: No - PSYCH Hx Psych Problems: Yes Hx Anxiety: Yes Hx Depression: Yes Comment:: Bipolar - HEMATOLOGY/ONCOLOGY Hx Hematology/Oncology Disorders: No Family Medical History Family Hx Comment (NOT TO BE USED IN PLACE OF ITEMS BELOW): Mom w/Aids Physical Exam - General General Appearance: Alert, Oriented x3, Cooperative, Mild distress Limitations: No limitations - Head Head exam: Atraumatic, Normocephalic, Normal inspection Head exam detail: negative: Abrasion, Contusion, Cote's sign, General tenderness, Hematoma, Laceration - Eye Eye exam: Normal appearance. negative: Conjunctival injection, Periorbital swelling, Periorbital tenderness, Scleral icterus - ENT Ear exam: negative: Auricular hematoma, Auricular trauma Nasal Exam: negative: Active bleeding, Discharge, Dried blood, Foreign body Mouth exam: negative: Drooling, Laceration, Muffled voice, Tongue elevation - Neck Neck exam: Normal inspection. negative: Meningismus, Tenderness - Respiratory Respiratory exam: Normal lung sounds bilaterally. negative: Rales, Respiratory distress, Rhonchi, Stridor - Cardiovascular Cardiovascular Exam: Normal rhythm, Normal heart sounds, Tachycardia - GI/Abdominal GI/Abdominal exam: Soft, Tenderness (Diffuse TTP on examination, distention is present.). negative: Rebound, Rigid - Rectal Rectal exam: Deferred - exam: Deferred - Extremities Extremities exam: Normal inspection. negative: Calf tenderness, Pedal edema, Tenderness - Back Back exam: Denies: CVA tenderness (R), CVA tenderness (L) - Neurological Neurological exam: Alert, Normal gait, Oriented X3 - Psychiatric Psychiatric exam: Normal affect, Normal mood - Skin Skin exam: Normal color. negative: Abrasion Type of lesion: negative: abrasion Course Vital Signs 07/30/18 19:46 Temperature 97.9 F Pulse Rate [ 144 H Pulse Ox Probe] Respiratory 20 Rate Blood Pressure 131/100 [Left Arm] Pulse Ox 95 - Reevaluation(s) Reevaluation #1: 07/30/18 20:55 Laboratory studies were reviewed and are grossly unremarkable for an acute process. Reevaluation #2: 07/30/18 21:02 AAS: Single loop of dilated small bowel left susanne-diaphragm Scattered air-fluid level Cannot exclude early/partial SBO Patient was updated on all results, will admit for further evaluation. Reevaluation #3: 07/30/18 21:10 Patient was updated on all results, reports that her pain symptoms are improved. Pulse improved to 118 on re-examination. Case was discussed with Whit Domínguez, will accept admission at this time. Medical Decision Making - Lab Data Result diagrams: 07/30/18 20:07 07/30/18 20:07 Disposition Disposition: Admit Clinical Impression: SBO (small bowel obstruction) Crohn disease Qualifiers: Gastrointestinal tract location: unspecified location Digestive disease complication type: with intestinal obstruction Qualified Code(s): K50.912 - Crohn's disease, unspecified, with intestinal obstruction Disposition: Still a Patient at [facility] Decision to Admit: Admit from ER Decision to Admit Date: 07/30/18 Decision to Admit Time: 21:12 Condition: (2) Stable Time of Disposition: 21:12 Quality - Quality Measures Quality Measures: N/A - Blood Pressure Screening Does Patient Have Any of the Following: No Blood Pressure Classification: Hypertensive Reading Systolic Measurement: 124 Diastolic Measurement: 92 Screening for High Blood Pressure: < First Hypertensive BP, F/U Documented > [ [id number]] First Hypertensive Follow-up Interventions: Referral to alternative/primary care provider.
[2018-07-30] MEDS ORDERED: 0.9 % SODIUM CHLORIDE 1000ML 1,000 ML IV SCH (20:00)
[2018-07-30 20:30] LABS: BASO % 0.2 % (0-6); EOS % 0.8 % (0-6); GRAN % 74.9 % (47-80); HEMATOCRIT 41.4 % (35.0-47.0); HEMOGLOBIN 13.4 gm/dl (11.6-16.0); LYMPH % 10.6 % (16-45); MEAN CELL VOLUME 86.1 fl (81-97); MEAN CORPUSCULAR HEMOGLOBIN 27.9 pg (27-33); MEAN CORPUSCULAR HGB CONC 32.4 g/dl (32-36); MEAN PLATELET VOLUME 9.1 fl (7.4-10.4); MONO % 13.5 % (0-9); PLATELET COUNT 510 K/uL (130-400); RED BLOOD COUNT 4.81 M/uL (3.80-5.40); RED CELL DISTRIBUTION WIDTH 17.6 % (11.5-14.5); WHITE BLOOD COUNT W/O DIFF 10.3 K/uL (4.2-12.2)
[2018-07-30 20:44] LABS: BILIRUBIN,TOTAL 0.5 mg/dL (0.2-1.0); CREATININE 1.1 mg/dL (0.5-0.9)
[2018-07-30 20:45] LABS: TOTAL PROTEIN 7.1 g/dL (6.6-8.7)
[2018-07-30 20:49] LABS: ALB/GLOB RATIO 1.3 (1.1-1.8)
[2018-07-30] MEDS ORDERED: ALBUTEROL HFA 8 GM INHALER INH PRN (21:48)
[2018-07-30] MEDS ORDERED: 0.9 % SODIUM CHLORIDE 1000ML 1,000 ML IV PRN (21:48)
[2018-07-30] MEDS ORDERED: TRAZODONE 50 MG TABLET PO PRN (21:56)
[2018-07-30] MEDS: TRAZODONE 50 MG TABLET PO SCH (23:35)
[2018-07-30] MEDS: LAMOTRIGINE 100 MG TABLET PO SCH (23:35)
[2018-07-31] MEDS: ONDANSETRON HCL IV 4 MG/2 ML VIAL IVP PRN ×6 (00:16→21:50)
[2018-07-31] MEDS: MORPHINE SULFATE 10 MG/ML VIAL IVP PRN ×6 (00:16→21:50)
[2018-07-31] MEDS: ACETAMINOPHEN 1,000 MG/100 ML BTL IVPB SCH ×3 (06:18→17:19)
[2018-07-31 06:57] LABS: BLOOD UREA NITROGEN 20 mg/dL (6-20); EST GLOMERULAR FILTRATION RATE > 60 mL/min; GLUCOSE,RANDOM 91 mg/dL (74-109)
--- NOTE | 2018-07-31 07:33 | RADIOLOGY REPORT ---
EXAM: ACUTE ABDOMEN SERIES HISTORY: ABDOMINAL PAIN, RECENT OBSTRUCTION. TECHNIQUE: A single PA view of the chest and supine and upright views of the abdomen were performed. Comparison: None. FINDINGS: Dilated air filled loop of small bowel in the left karin-abdomen. There are air fluid levels at multiple levels. Findings may represent an ileus. A partial small bowel obstruction cannot be excluded. Postop surgical sutures in the right karin-abdomen. No free air. IMPRESSION: 1. SINGLE DILATED LOOP OF SMALL BOWEL IN THE LEFT KARIN-ABDOMEN. MULTIPLE AIR FLUID LEVELS ON THE UPRIGHT VIEW. PARTIAL SMALL BOWEL OBSTRUCTION CANNOT BE ENTIRELY EXCLUDED. 2. POSTOP SURGICAL SUTURES IN THE RIGHT KARIN-ABDOMEN. JOB NUMBER: [id number] [facility]
[2018-07-31] MEDS: METHYLPREDNISOLONE PF 125MG/VIAL IVP SCH (09:22)
[2018-07-31] MEDS: VENLAFAXINE ER 75 MG CAPSULE PO SCH (09:25)
[2018-07-31] MEDS: BUPROPION HCL 150 MG TAB.SR.12H PO SCH (09:25)
[2018-07-31] MEDS: ARIPIPRAZOLE 15 MG PO SCH (09:27)
--- NOTE | 2018-07-31 10:31 | History & Physical ---
History of Present Illness - Date of Service Date of Service for History & Physical: 07/31/18 - History of Present Illness Admitting Diagnosis: SBO. Crohn's disease History of Present Illness: 37 yo female presents for admission for partial SBO and Crohn's flare. Pt has been off her budesonide for 6 weeks s/p breast reduction surgery. Surgeon stopped her medication to promote healing. This is second admission in the past 2 weeks for the same. Pt reports N/V, abd pain, and bloating that has been increasing in severity and frequency since stopping Imuran 250mg per plastic surgeon recommendation for cessation for 6 weeks. Last admission 07/23/18-07/27/18 for same. Pt presented to [facility] ER for increased abd pain, bloating and nausea. ABD XR shows dialated loop SB left susanne-abd. (Ct reviewed from previous admission) BP 131/100, HR 144, RR 20, 95% RA, 97.9F, repeat vitals in 1 hours BP 124/92, HR 118, RR 18 WBC 10.3, Hgb 13.4, Hct 41.1, Plt 510 NA 138, K 5 (hemolyzed), CL 100, Co2 22, BUN 17, Cr 1.1, GFR 59, glucose 102, lipase 39, LFTs normal. Pt given 1L NS, 5mg MS, 4mg Zofran and was reporting improvement in pain. Admission for SBO and Crohn's Flare 07/30/18 Pt in no distress, sitting up in bed, moving about in bed with little difficulty. Pt reports seeing [facility] for Crohn's, was taking Imuran 250mg daily previous to breast reduction surgery 6 weeks ago. Reports BM yesterday but none today. Bowel sounds x4 active, abd ttp throughout , moderate distention noted. Pt has been taking mirliax 17gm BID and still has SBO complication. Adding colace and senna BID, fluids, and steriods. Spoke with [facility] Barrett [facility] and confirmed POC steroids, return to Imuran, pepcid, prilosec , and f/u GI in 1 month. POC to have BM, decrease distention, improve nausea and pain. Pt agrees to this plan. Repeat BMP in the AM r/t pt h/o hypokalemia. PCP Specialty PAULINE Villalba [facility] Travel Screening - Travel/Exposure Within Last 30 Days Have you traveled within the last 30 days?: No - Travel/Exposure Within Last Year Have you traveled outside the [place] in the last year?: No - Additonal Travel Details Have you been exposed to anyone with a communicable illness?: No - Travel Symptoms Symptom Screening: None Review of Systems Constitutional: Denies: Chills, Fever, Malaise, Night sweats Eyes: Denies: Eye discharge, Eye pain ENT: Denies: Congestion, Ear pain, Epistaxis Respiratory: Denies: Cough, Dyspnea Cardiovascular: Denies: Chest pain, Dyspnea on exertion Endocrine: Denies: Fatigue, Heat or cold intolerance Gastrointestinal: Reports: Abdominal pain, Nausea, Vomiting Genitourinary: Denies: Incontinence, Retention Musculoskeletal: Denies: Arthralgia, Back pain Skin: Denies: Bruising, Change in color Neurological: Denies: Abnormal gait, Confusion, Headache, Seizure Psychiatric: Denies: Anxiety Hematological/Lymphatic: Denies: Anemia, Blood Clots Past Medical History - SOCIAL HISTORY Smoking Status: Former smoker Alcohol Use: Rare Drug Use: None - RESPIRATORY Hx Respiratory Disorders: No - CARDIOVASCULAR Hx Cardio Disorders: No - NEURO Hx Neuro Disorders: No - GI Hx GI Disorders: Yes Hx Crohn's Disease: Yes Hx Obstructive Bowel: Yes Comment:: recent sepsis admission - Hx Genitourinary Disorders: Yes Hx Bladder Problem: Yes (mild incontinence) - ENDOCRINE Hx Endocrine Disorders: No - MUSCULOSKELETAL Hx Musculoskeletal Disorders: No - PSYCH Hx Psych Problems: Yes Hx Anxiety: Yes Hx Depression: Yes Comment:: Bipolar - HEMATOLOGY/ONCOLOGY Hx Hematology/Oncology Disorders: No Family Medical History Any Significant Family History?: Yes Family Hx Comment (NOT TO BE USED IN PLACE OF ITEMS BELOW): Mom w/Aids H&P Meds/Allergies - Allergies Allergies: Allergies Allergy/AdvReac Type Severity Reaction Status Date / Time cephalexin Allergy Mild hives Verified 07/23/18 11:58 hydromorphone [From Dilaudid] AdvReac VOMITING Verified 07/30/18 20:21 - Home Medications Previous Rx's Medication Instructions Recorded Ondansetron [Zofran Odt] 4 mg SL Q8H PRN #24 tab.rapdis 05/03/18 Dicyclomine HCl [Bentyl] 10 mg PO Q8H #30 cap 07/27/18 Hydrocodone/APAP 5/325Mg [[place] 1 each PO Q6H #10 tab 07/27/18 5Mg/325Mg] Polyethylene Glycol 3350 [Miralax] 17 gm PO BID #1 bottle 07/27/18 - Active Medications Active Medications: Current Medications Albuterol Sulfate (Ventolin Hfa) 2 puff INH Q4H PRN PRN Reason: SHORTNESS OF BREATH Bupropion HCl (Wellbutrin Sr) 300 mg PO QAM [facility] Last Admin: 07/31/18 09:25 Dose: 300 mg Acetaminophen (Ofirmev) 1,000 mg in 100 mls @ 400 mls/hr IVPB Q6H [facility] Last Infusion: 07/31/18 06:51 Dose: Infused Dextrose () 1,000 mls @ 125 mls/hr IV .Q8H [facility] Lamotrigine (Lamictal) 100 mg PO QHS [facility] Last Admin: 07/30/18 23:35 Dose: 100 mg Methylprednisolone Sodium Succinate (Solu-Medrol) 60 mg IVP DAILY [facility] Last Admin: 07/31/18 09:22 Dose: 60 mg Morphine Sulfate (Morphine Sulfate) 5 mg IVP Q4H PRN PRN Reason: PAIN - MOD TO SEVERE (5-10) Last Admin: 07/31/18 09:16 Dose: 5 mg Non-Formulary Medication (Aripiprazole [Aripiprazole]) 15 mg PO DAILY [facility] Last Admin: 07/31/18 09:27 Dose: Not Given Ondansetron HCl (Zofran) 4 mg IVP Q4H PRN PRN Reason: NAUSEA Last Admin: 07/31/18 09:19 Dose: 4 mg Trazodone HCl (Desyrel) 100 mg PO QHS [facility] Last Admin: 07/30/18 23:35 Dose: 100 mg Trazodone HCl (Desyrel) 50 mg PO QHS PRN PRN Reason: SLEEP Venlafaxine HCl (Effexor Xr) 75 mg PO DAILY [facility] Last Admin: 07/31/18 09:25 Dose: 75 mg Physical Exam - Vital Signs Vital Signs: Vital Signs - Last 24 Hrs Temp Pulse Pulse Resp BP BP Pulse Ox 07/31/18 09:00 18 07/31/18 05:48 109 H 18 115/77 94 L 07/30/18 22:00 112 H 16 07/30/18 21:48 98.7 F 118 H 20 150/97 99 07/30/18 21:29 98.6 F 112 H 16 129/84 07/30/18 20:42 118 H 18 124/92 95 07/30/18 20:22 130 H 18 95 07/30/18 19:46 97.9 F 144 H 20 131/100 95 - General General Appearance: Alert, Oriented x3, Cooperative, Mild distress Limitations: No limitations - Head Head exam: Atraumatic, Normocephalic, Normal inspection Head exam detail: negative: Abrasion, Contusion, Cote's sign, General tenderness, Hematoma, Laceration - Eye Eye exam: Normal appearance. negative: Conjunctival injection, Periorbital swelling, Periorbital tenderness, Scleral icterus - ENT ENT exam: Normal exam, Mucous membranes moist Ear exam: Normal external inspection. negative: Auricular hematoma, Auricular trauma Nasal Exam: negative: Active bleeding, Discharge, Dried blood, Foreign body Mouth exam: negative: Drooling, Laceration, Muffled voice, Tongue elevation - Neck Neck exam: Normal inspection. negative: Meningismus, Tenderness - Respiratory Respiratory exam: Normal lung sounds bilaterally. negative: Rales, Respiratory distress, Rhonchi, Stridor - Cardiovascular Cardiovascular Exam: Regular rate, Normal rhythm, Normal heart sounds Peripheral Pulses: 3+: Radial (R), Radial (L), Dorsalis Pedis (R), Dorsalis Pedis (L) - GI/Abdominal GI/Abdominal exam: Normal bowel sounds, Distended, Tenderness (Diffuse TTP on examination, distention is present.). negative: Rebound, Rigid - Rectal Rectal exam: Deferred - exam: Deferred - Extremities Extremities exam: Normal inspection. negative: Calf tenderness, Pedal edema, Tenderness - Back Back exam: Denies: CVA tenderness (R), CVA tenderness (L) - Neurological Neurological exam: Alert, Normal gait, Oriented X3 - Psychiatric Psychiatric exam: Normal affect, Normal mood - Skin Skin exam: Normal color. negative: Abrasion Type of lesion: negative: abrasion Results - Labs Result Diagrams: 07/30/18 20:07 07/31/18 06:27 Labs Last 24 Hours: Laboratory Results - last 24 hr 07/30/18 07/30/18 07/31/18 20:07 20:07 06:27 WBC 10.3 RBC 4.81 Hgb 13.4 Hct 41.4 MCV 86.1 MCH 27.9 MCHC 32.4 RDW 17.6 H Plt Count 510 H MPV 9.1 Gran % 74.9 Lymphocytes % 10.6 L Monocytes % 13.5 H Eosinophils % 0.8 Basophils % 0.2 Sodium 138 141 Potassium 5.0 H 3.6 Chloride 100 104 Carbon Dioxide 22.0 25.0 Anion Gap 16.0 12.0 BUN 17 20 Creatinine 1.1 H 1.0 H Estimated GFR 59 > 60 Random Glucose 102 91 Calcium 9.5 8.6 Total Bilirubin 0.50 AST 26 ALT 14 Alkaline Phosphatase 76 Total Protein 7.1 Albumin 4.0 Globulin 3.1 Albumin/Globulin Ratio 1.3 Lipase 39 - Imaging and Cardiology Chest x-ray Status: Report reviewed VTE H&P Assessment - Risk for VTE Risk for VTE: Yes Risk Level: Moderate Risk Assessment Date: 07/31/18 Risk Assessment Time: 12:26 VTE Orders Placed or Will Be Placed: Yes Plan - Inpatient Certification Inpatient Certification: Admit to inpatient care: Based on my medical assessment, after consideration of patient's risk factors (age, co-morbidities and patient presenting symptoms and acuity), I expect that this patient will remain in the hospital greater than or equal to two midnights and that the services needed warrant inpatient care because: Patient Risk Factors: dehydration, electrolyte imbalance, worsening SBO/Crohn's Estimated length of stay: The patient may reasonably be expected to be discharged or transferred to a hospital within 96 hours after admission to [facility]. Services needed: IVF, electrolyte monitoring, restarting/monitor medication Post hospital care (if known): [] I certify that my determination is in accordance with my understanding of Medicare requirements for reasonable and necessary inpatient services. 07/31/18 12:28 - Detailed Diagnosis and Plan (1) Crohn disease Current Visit: Yes Status: Acute Qualifiers: Gastrointestinal tract location: unspecified location Digestive disease complication type: with intestinal obstruction Qualified Code(s): K50.912 - Crohn's disease, unspecified, with intestinal obstruction Base Code: K50.90 - CROHN'S DISEASE, UNSPECIFIED, WITHOUT COMPLICATIONS Comment: 07/30/18 -IV steroids until pt tolerated PO, transition to 40mg prednisone -return to Imuran 250mg per [facility] recommendations -f/u [facility] 1 month -start H2 and PPI continue (2) SBO (small bowel obstruction) Current Visit: Yes Status: Acute Base Code: K56.609 - UNSP INTESTNL OBST, UNSP TO PARTIAL VERSUS COMPLETE OBST Comment: 07/30/18 -NPO (but pt is sippig clear liquids with good tolerance) -mirilax 1gm BID, colace BID, senna HS -BM for d/c - repeat KUB am for resolution/improvement (3) Full code status Current Visit: No Status: Acute Base Code: Z78.9 - OTHER SPECIFIED HEALTH STATUS Comment: 07/30/18 -Pt. is a full code
[2018-07-31] MEDS: POLYETHYLENE GLY 17 GM PACKET PO SCH ×2 (11:42→21:44)
[2018-07-31] MEDS: DOCUSATE SODIUM 100 MG CAPSULE PO SCH ×2 (11:43→21:43)
[2018-07-31] MEDS: DEXTROSE 5 % IN WATER 1,000 ML IV SCH ×2 (11:46→20:25)
[2018-07-31] MEDS ORDERED: DICYCLOMINE HCL 10 MG CAPSULE PO PRN (12:27)
[2018-07-31] MEDS: FAMOTIDINE 20MG TABLET PO SCH (13:29)
[2018-07-31] MEDS: ENOXAPARIN 40 MG/0.4 ML SYR SQ SCH (13:31)
[2018-07-31] MEDS ORDERED: SODIUM CHLORIDE 0.9% 500 ML IV ONE (15:00)
[2018-07-31] MEDS: PATIENT OWN MED: AZATHIOPRINE 50 MG PO SCH (15:34)
[2018-07-31] MEDS: LAMOTRIGINE 100 MG TABLET PO SCH (21:43)
[2018-07-31] MEDS: TRAZODONE 50 MG TABLET PO SCH (21:43)
[2018-08-01] MEDS: ACETAMINOPHEN 1,000 MG/100 ML BTL IVPB SCH ×5 (00:15→23:50)
[2018-08-01] MEDS: MORPHINE SULFATE 10 MG/ML VIAL IVP PRN ×5 (01:57→20:15)
[2018-08-01] MEDS: ONDANSETRON HCL IV 4 MG/2 ML VIAL IVP PRN ×5 (01:57→20:15)
[2018-08-01] MEDS: DEXTROSE 5 % IN WATER 1,000 ML IV SCH ×3 (04:38→21:25)
[2018-08-01] MEDS: PANTOPRAZOLE SODIUM 40 MG TABLET PO SCH (06:01)
--- NOTE | 2018-08-01 07:35 | RADIOLOGY REPORT ---
EXAM: ABDOMEN HISTORY: ABDOMINAL PAIN. TECHNIQUE: A single view of the abdomen was performed. FINDINGS: There is a single loop of distended air filled loop of small bowel in the central abdomen measuring up to 5.6 cm. Postop surgical sutures in the right karin-abdomen. Early or partial small bowel obstruction not excluded. No evidence of free air. IMPRESSION: SINGLE DISTENDED LOOP OF SMALL BOWEL IN THE LEFT KARIN-ABDOMEN. EARLY OR PARTIAL SMALL BOWEL OBSTRUCTION CANNOT BE EXCLUDED. JOB NUMBER: [id number] [facility]
[2018-08-01] MEDS: ARIPIPRAZOLE 15 MG PO SCH (10:36)
[2018-08-01] MEDS: DOCUSATE SODIUM 100 MG CAPSULE PO SCH ×2 (10:51→21:31)
[2018-08-01] MEDS: BUPROPION HCL 150 MG TAB.SR.12H PO SCH (10:52)
[2018-08-01] MEDS: VENLAFAXINE ER 75 MG CAPSULE PO SCH (10:52)
[2018-08-01] MEDS: FAMOTIDINE 20MG TABLET PO SCH (10:52)
[2018-08-01] MEDS: PATIENT OWN MED: AZATHIOPRINE 50 MG PO SCH (10:55)
[2018-08-01] MEDS: POLYETHYLENE GLY 17 GM PACKET PO SCH ×2 (10:56→21:31)
[2018-08-01] MEDS: METHYLPREDNISOLONE PF 125MG/VIAL IVP SCH (10:57)
[2018-08-01] MEDS: ENOXAPARIN 40 MG/0.4 ML SYR SQ SCH (10:58)
--- NOTE | 2018-08-01 12:40 | Physician Progress Note ---
Subjective - Date Date of Physician Progress Note: 08/01/18 - Subjective Subjective Comment: Pt reports pain is controlled and resolving, heart burn resolved with the addition of pepcid and prilosec. Abd has become more distended but pt reports decreased pain and no pain with palpation. Pt tolerating steroids. Pt is not passing gas nor had a BM. One episode of vomit last night but pt denies nausea, states that she was ambulating in the hallway, over exerted herself and spontaneously vomited. Pt has been tolerating small amt of clear liq as she had small BM immediately prior to Er admission. Surgery consult ordered r/t partial SBO and increased distension. Pt is A&ox4, no distress, moving about in bed and her room with no difficulty. BS hypoactive Lung sounds clear [place] pt surgical scars were assessed on admission, all are well approximated, pink , no drainage or incisional pain Location: Abdomen Consistency: Other (improving) Objective - Vital Signs Vital Signs: Vital Signs - Last 24 Hrs Temp Pulse Resp BP BP Pulse Ox 08/01/18 08:22 103 H 18 08/01/18 08:01 98 F 103 H 16 146/101 97 08/01/18 04:00 97.7 F 105 H 18 140/92 96 07/31/18 21:00 100 H 18 07/31/18 20:00 97.9 F 100 H 18 150/100 96 07/31/18 16:54 134/90 - General General Appearance: Alert, Oriented x3, Cooperative, No acute distress Limitations: No limitations - Head Head exam: Atraumatic, Normocephalic, Normal inspection Head exam detail: negative: Abrasion, Contusion, Cote's sign, General tenderness, Hematoma, Laceration - Eye Eye exam: Normal appearance. negative: Conjunctival injection, Periorbital swelling, Periorbital tenderness, Scleral icterus - ENT ENT exam: Normal exam, Mucous membranes moist Ear exam: Normal external inspection. negative: Auricular hematoma, Auricular trauma Nasal Exam: negative: Active bleeding, Discharge, Dried blood, Foreign body Mouth exam: negative: Drooling, Laceration, Muffled voice, Tongue elevation - Neck Neck exam: Normal inspection. negative: Meningismus, Tenderness - Respiratory Respiratory exam: Normal lung sounds bilaterally. negative: Rales, Respiratory distress, Rhonchi, Stridor - Cardiovascular Cardiovascular Exam: Regular rate, Normal rhythm, Normal heart sounds Peripheral Pulses: 3+: Radial (R), Radial (L), Dorsalis Pedis (R), Dorsalis Pedis (L) - GI/Abdominal GI/Abdominal exam: Distended (worse distention since admission), Hypoactive bowel sounds, Tenderness (Diffuse TTP on examination, distention is present.). negative: Rebound, Rigid - Rectal Rectal exam: Deferred - exam: Deferred - Extremities Extremities exam: Normal inspection. negative: Calf tenderness, Pedal edema, Tenderness - Back Back exam: Denies: CVA tenderness (R), CVA tenderness (L) - Neurological Neurological exam: Alert, Normal gait, Oriented X3 - Psychiatric Psychiatric exam: Normal affect, Normal mood - Skin Skin exam: Normal color. negative: Abrasion Type of lesion: negative: abrasion Assessment and Plan - Assessment and Plan (1) Crohn disease Current Visit: Yes Status: Acute Qualifiers: Gastrointestinal tract location: unspecified location Digestive disease complication type: with intestinal obstruction Qualified Code(s): K50.912 - Crohn's disease, unspecified, with intestinal obstruction Base Code: K50.90 - CROHN'S DISEASE, UNSPECIFIED, WITHOUT COMPLICATIONS Comment: 07/30/18 -IV steroids until pt tolerated PO, transition to 40mg prednisone -return to Imuran 250mg per [facility] recommendations -f/u [facility] 1 month -start H2 and PPI continue 08/01/18 - heartburn/GERD resolved, nausea resolved -pain improving but abd is more distended -surgical consult, continue IV steroids and home meds -pt reports UO has impoved since 500cc bolus yesterday (2) SBO (small bowel obstruction) Current Visit: Yes Status: Acute Base Code: K56.609 - UNSP INTESTNL OBST, UNSP TO PARTIAL VERSUS COMPLETE OBST Comment: 07/31/18 -NPO (but pt is sippig clear liquids with good tolerance) -mirilax 1gm BID, colace BID, senna HS -BM for d/c - repeat KUB am for resolution/improvement 08/01/18 -repeat KUB was completed HS, repeated this AM r/t increased distenstion -no BM but no nausea, one episode of vomiting that was spontaneous per pt -surgical consult (3) Full code status Current Visit: No Status: Acute Base Code: Z78.9 - OTHER SPECIFIED HEALTH STATUS Comment: 08/01/18 -Pt. is a full code Results - Labs Result Diagrams: 07/30/18 20:07 07/31/18 06:27 - Imaging and Cardiology Abdominal x-ray Status: Pending Additional Comments: HS xr showing partial SBO, repeat this AM r/t increased distension DVT/PE Assessment - Risk for VTE Risk for VTE: No Risk Level: Moderate Risk Assessment Date: 07/31/18 Risk Assessment Time: 12:26 VTE Orders Placed or Will Be Placed: Yes - Active Medicaitons Current Medications: Current Medications Albuterol Sulfate (Ventolin Hfa) 2 puff INH Q4H PRN PRN Reason: SHORTNESS OF BREATH Bupropion HCl (Wellbutrin Sr) 300 mg PO QAM [facility] Last Admin: 08/01/18 10:52 Dose: 300 mg Dicyclomine HCl (Bentyl) 10 mg PO TID PRN PRN Reason: CRAMP Docusate Sodium (Colace) 100 mg PO BID [facility] Last Admin: 08/01/18 10:51 Dose: 100 mg Enoxaparin Sodium (Lovenox) 40 mg SQ DAILY [facility] Last Admin: 08/01/18 10:58 Dose: 40 mg Famotidine (Pepcid) 20 mg PO DAILY [facility] Last Admin: 08/01/18 10:52 Dose: 20 mg Acetaminophen (Ofirmev) 1,000 mg in 100 mls @ 400 mls/hr IVPB Q6H [facility] Last Infusion: 08/01/18 06:19 Dose: Infused Dextrose () 1,000 mls @ 125 mls/hr IV .Q8H [facility] Last Admin: 08/01/18 04:38 Dose: 125 mls/hr Lamotrigine (Lamictal) 100 mg PO QHS [facility] Last Admin: 07/31/18 21:43 Dose: 100 mg Methylprednisolone Sodium Succinate (Solu-Medrol) 60 mg IVP DAILY [facility] Last Admin: 08/01/18 10:57 Dose: 60 mg Morphine Sulfate (Morphine Sulfate) 5 mg IVP Q4H PRN PRN Reason: PAIN - MOD TO SEVERE (5-10) Last Admin: 08/01/18 11:37 Dose: 5 mg Non-Formulary Medication (Aripiprazole [Aripiprazole]) 15 mg PO DAILY [facility] Last Admin: 08/01/18 10:36 Dose: Not Given Ondansetron HCl (Zofran) 4 mg IVP Q4H PRN PRN Reason: NAUSEA Last Admin: 08/01/18 11:37 Dose: 4 mg Pantoprazole Sodium (Protonix) 40 mg PO DAILYAC [facility] Last Admin: 08/01/18 06:01 Dose: 40 mg Patient Own Med: (Azathioprine 50 Mg) 5 each PO DAILY [facility] Last Admin: 08/01/18 10:55 Dose: 5 each Polyethylene Glycol (Miralax) 17 gm PO BID [facility] Last Admin: 08/01/18 10:56 Dose: 17 gm Trazodone HCl (Desyrel) 100 mg PO QHS [facility] Last Admin: 07/31/18 21:43 Dose: 100 mg Trazodone HCl (Desyrel) 50 mg PO QHS PRN PRN Reason: SLEEP Venlafaxine HCl (Effexor Xr) 75 mg PO DAILY [facility] Last Admin: 08/01/18 10:52 Dose: 75 mg AMI Plan - Labs Result Diagrams: 07/30/18 20:07 07/31/18 06:27
[2018-08-01] MEDS: LAMOTRIGINE 100 MG TABLET PO SCH (21:31)
[2018-08-01] MEDS: TRAZODONE 50 MG TABLET PO SCH (21:31)
[2018-08-02] MEDS: ONDANSETRON HCL IV 4 MG/2 ML VIAL IVP PRN ×4 (00:35→22:40)
[2018-08-02] MEDS: MORPHINE SULFATE 10 MG/ML VIAL IVP PRN ×6 (00:35→22:40)
[2018-08-02] MEDS: DEXTROSE 5 % IN WATER 1,000 ML IV SCH ×3 (04:59→22:31)
[2018-08-02] MEDS: ACETAMINOPHEN 1,000 MG/100 ML BTL IVPB SCH ×3 (06:19→17:42)
[2018-08-02] MEDS: PANTOPRAZOLE SODIUM 40 MG TABLET PO SCH (06:19)
[2018-08-02] MEDS ORDERED: MAGNESIUM CITRATE 296 ML BTL PO ONE (09:54)
[2018-08-02] MEDS: DOCUSATE SODIUM 100 MG CAPSULE PO SCH ×2 (10:06→22:34)
[2018-08-02] MEDS: FAMOTIDINE 20MG TABLET PO SCH (10:06)
[2018-08-02] MEDS: BUPROPION HCL 150 MG TAB.SR.12H PO SCH (10:06)
[2018-08-02] MEDS: ARIPIPRAZOLE 15 MG PO SCH (10:06)
[2018-08-02] MEDS: PATIENT OWN MED: AZATHIOPRINE 50 MG PO SCH (10:07)
[2018-08-02] MEDS: POLYETHYLENE GLY 17 GM PACKET PO SCH ×2 (10:07→22:35)
[2018-08-02] MEDS: VENLAFAXINE ER 75 MG CAPSULE PO SCH (10:08)
[2018-08-02] MEDS: ENOXAPARIN 40 MG/0.4 ML SYR SQ SCH (10:08)
[2018-08-02] MEDS: METHYLPREDNISOLONE PF 125MG/VIAL IVP SCH (10:09)
--- NOTE | 2018-08-02 22:23 | Physician Progress Note ---
Subjective - Date Date of Physician Progress Note: 08/03/18 - Subjective Subjective Comment: Pt in no distress, remains distended with hypoactive bowel sounds. Dr Rocha saw pt late the night before, reports that medical mgt should resolve issues as pt is not needing surgical intervention at this time. Objective - Vital Signs Vital Signs: Vital Signs - Last 24 Hrs Temp Pulse Resp BP Pulse Ox 08/02/18 16:00 98.1 F 96 H 18 123/83 97 08/02/18 09:00 16 08/02/18 08:00 98.2 F 97 H 16 141/93 99 08/02/18 00:00 97.7 F 91 H 16 126/77 94 L - General General Appearance: Alert, Oriented x3, Cooperative, No acute distress Limitations: No limitations - Head Head exam: Atraumatic, Normocephalic, Normal inspection Head exam detail: negative: Abrasion, Contusion, Cote's sign, General tenderness, Hematoma, Laceration - Eye Eye exam: Normal appearance. negative: Conjunctival injection, Periorbital swelling, Periorbital tenderness, Scleral icterus - ENT ENT exam: Normal exam, Mucous membranes moist Ear exam: Normal external inspection. negative: Auricular hematoma, Auricular trauma Nasal Exam: negative: Active bleeding, Discharge, Dried blood, Foreign body Mouth exam: negative: Drooling, Laceration, Muffled voice, Tongue elevation - Neck Neck exam: Normal inspection. negative: Meningismus, Tenderness - Respiratory Respiratory exam: Normal lung sounds bilaterally. negative: Rales, Respiratory distress, Rhonchi, Stridor - Cardiovascular Cardiovascular Exam: Regular rate, Normal rhythm, Normal heart sounds Peripheral Pulses: 3+: Radial (R), Radial (L), Dorsalis Pedis (R), Dorsalis Pedis (L) - GI/Abdominal GI/Abdominal exam: Distended (worse distention since admission), Hypoactive bowel sounds, Tenderness (Diffuse TTP on examination, distention is present.). negative: Rebound, Rigid - Rectal Rectal exam: Deferred - exam: Deferred - Extremities Extremities exam: Normal inspection. negative: Calf tenderness, Pedal edema, Tenderness - Back Back exam: Denies: CVA tenderness (R), CVA tenderness (L) - Neurological Neurological exam: Alert, Normal gait, Oriented X3 - Psychiatric Psychiatric exam: Normal affect, Normal mood - Skin Skin exam: Normal color. negative: Abrasion Type of lesion: negative: abrasion Assessment and Plan - Assessment and Plan (1) Crohn disease Current Visit: Yes Status: Acute Qualifiers: Gastrointestinal tract location: unspecified location Digestive disease complication type: with intestinal obstruction Qualified Code(s): K50.912 - Crohn's disease, unspecified, with intestinal obstruction Base Code: K50.90 - CROHN'S DISEASE, UNSPECIFIED, WITHOUT COMPLICATIONS Comment: 07/30/18 -IV steroids until pt tolerated PO, transition to 40mg prednisone -return to Imuran 250mg per [facility] recommendations -f/u [facility] 1 month -start H2 and PPI continue 08/01/18 - heartburn/GERD resolved, nausea resolved -pain improving but abd is more distended -surgical consult, continue IV steroids and home meds -pt reports UO has impoved since 500cc bolus yesterday 08/02/18 -pt continues to have abd distention, abd pain(but greatly improved since addition of IV steroids), nausea -Imuran 250mg daily and bentyl PRN also tolerating and controlling flare - (2) SBO (small bowel obstruction) Current Visit: Yes Status: Acute Base Code: K56.609 - UNSP INTESTNL OBST, UNSP TO PARTIAL VERSUS COMPLETE OBST Comment: 07/31/18 -NPO (but pt is sippig clear liquids with good tolerance) -mirilax 1gm BID, colace BID, senna HS -BM for d/c - repeat KUB am for resolution/improvement 08/01/18 -repeat KUB was completed HS, repeated this AM r/t increased distenstion -no BM but no nausea, one episode of vomiting that was spontaneous per pt -surgical consult 08/02/18 -Dr Rocha consulted and saw pt late the previous night, reports as medical mgt , given mag cit and allow to clear itself -pt remains distended, had large emesis the previous night of bile and fluid, eye appear blood shot from this event -pt denies nausea at time of visit, D5w still infusing r/t NPO status but pt is sometimes demanding clear liq (drinking swab water) -repeat abd xray am if still distended (3) Full code status Current Visit: No Status: Acute Base Code: Z78.9 - OTHER SPECIFIED HEALTH STATUS Comment: 08/02/18 -Pt. is a full code (4) At risk for deep venous thrombosis Current Visit: No Status: Acute Base Code: Z91.89 - OTH PERSONAL RISK FACTORS, NOT ELSEWHERE CLASSIFIED Comment: 08/02/18 -lovenox SQ cont Results - Labs Result Diagrams: 07/30/18 20:07 07/31/18 06:27 - Imaging and Cardiology Abdominal x-ray Status: Report reviewed DVT/PE Assessment - Risk for VTE Risk for VTE: Yes Risk Level: Moderate Risk Assessment Date: 07/31/18 Risk Assessment Time: 12:26 VTE Orders Placed or Will Be Placed: Yes - Active Medicaitons Current Medications: Current Medications Albuterol Sulfate (Ventolin Hfa) 2 puff INH Q4H PRN PRN Reason: SHORTNESS OF BREATH Bupropion HCl (Wellbutrin Sr) 300 mg PO QAM [facility] Last Admin: 08/02/18 10:06 Dose: 300 mg Dicyclomine HCl (Bentyl) 10 mg PO TID PRN PRN Reason: CRAMP Docusate Sodium (Colace) 100 mg PO BID [facility] Last Admin: 08/02/18 10:06 Dose: 100 mg Enoxaparin Sodium (Lovenox) 40 mg SQ DAILY [facility] Last Admin: 08/02/18 10:08 Dose: 40 mg Famotidine (Pepcid) 20 mg PO DAILY [facility] Last Admin: 08/02/18 10:06 Dose: 20 mg Acetaminophen (Ofirmev) 1,000 mg in 100 mls @ 400 mls/hr IVPB Q6H [facility] Last Infusion: 08/02/18 18:06 Dose: Infused Dextrose () 1,000 mls @ 125 mls/hr IV .Q8H [facility] Last Admin: 08/02/18 14:15 Dose: 125 mls/hr Lamotrigine (Lamictal) 100 mg PO QHS [facility] Last Admin: 08/01/18 21:31 Dose: 100 mg Methylprednisolone Sodium Succinate (Solu-Medrol) 60 mg IVP DAILY [facility] Last Admin: 08/02/18 10:09 Dose: 60 mg Morphine Sulfate (Morphine Sulfate) 5 mg IVP Q4H PRN PRN Reason: PAIN - MOD TO SEVERE (5-10) Last Admin: 08/02/18 18:09 Dose: 5 mg Non-Formulary Medication (Aripiprazole [Aripiprazole]) 15 mg PO DAILY [facility] Last Admin: 08/02/18 10:06 Dose: Not Given Ondansetron HCl (Zofran) 4 mg IVP Q4H PRN PRN Reason: NAUSEA Last Admin: 08/02/18 12:55 Dose: 4 mg Pantoprazole Sodium (Protonix) 40 mg PO DAILYAC [facility] Last Admin: 08/02/18 06:19 Dose: 40 mg Patient Own Med: (Azathioprine 50 Mg) 5 each PO DAILY [facility] Last Admin: 08/02/18 10:07 Dose: 5 each Polyethylene Glycol (Miralax) 17 gm PO BID [facility] Last Admin: 08/02/18 10:07 Dose: 17 gm Trazodone HCl (Desyrel) 100 mg PO QHS [facility] Last Admin: 08/01/18 21:31 Dose: 100 mg Trazodone HCl (Desyrel) 50 mg PO QHS PRN PRN Reason: SLEEP Venlafaxine HCl (Effexor Xr) 75 mg PO DAILY [facility] Last Admin: 08/02/18 10:08 Dose: 75 mg AMI Plan - Labs Result Diagrams: 07/30/18 20:07 07/31/18 06:27
[2018-08-02] MEDS: TRAZODONE 50 MG TABLET PO SCH (22:34)
[2018-08-02] MEDS: LAMOTRIGINE 100 MG TABLET PO SCH (22:35)
[2018-08-03] MEDS: ACETAMINOPHEN 1,000 MG/100 ML BTL IVPB SCH ×4 (00:11→19:10)
[2018-08-03] MEDS: ONDANSETRON HCL IV 4 MG/2 ML VIAL IVP PRN ×5 (03:26→21:28)
[2018-08-03] MEDS: MORPHINE SULFATE 10 MG/ML VIAL IVP PRN ×5 (03:26→21:28)
[2018-08-03] MEDS: PANTOPRAZOLE SODIUM 40 MG TABLET PO SCH (06:24)
[2018-08-03] MEDS: DEXTROSE 5 % IN WATER 1,000 ML IV SCH ×3 (08:13→20:30)
--- NOTE | 2018-08-03 09:59 | Physician Progress Note ---
Subjective - Date Date of Physician Progress Note: 08/03/18 - Subjective Subjective Comment: 08/03/18 Pt reports feeling better, has had several liq stools but remains distended. Repeat abd XR still shows SBO and now possible ileus. CT abd/pelvis with PO contrast ordered. Pt has been insisting on clear liquids through the night, drinking the liquid from the oral swabs. Has been tolerant of that, no vomiting through the night. IV left hand still draws blood but hand is swollen and mild erythema noted. IV to be replaced, pt is resistant to this but educated that current IV site is compromised and will need to be changed. pt finally agreed. Pt is resting in bed comfortably, moving in bed, sitting up with no increased pain or difficulty. Pt is aware of POC and agrees to CT today. Dr Rocha has consulted on this case and reported medical mgt should resolve issue. Will continue to attempt medical mgt as long as pt is stable and comfortable, which she is currently. Objective - Vital Signs Vital Signs: Vital Signs - Last 24 Hrs Temp Pulse Resp BP Pulse Ox 08/03/18 08:07 89 18 08/03/18 00:00 89 18 145/95 96 08/02/18 16:00 98.1 F 96 H 18 123/83 97 - General General Appearance: Alert, Oriented x3, Cooperative, No acute distress Limitations: No limitations - Head Head exam: Atraumatic, Normocephalic, Normal inspection Head exam detail: negative: Abrasion, Contusion, Cote's sign, General tenderness, Hematoma, Laceration - Eye Eye exam: Normal appearance. negative: Conjunctival injection, Periorbital swelling, Periorbital tenderness, Scleral icterus - ENT ENT exam: Normal exam, Mucous membranes moist Ear exam: Normal external inspection. negative: Auricular hematoma, Auricular trauma Nasal Exam: negative: Active bleeding, Discharge, Dried blood, Foreign body Mouth exam: negative: Drooling, Laceration, Muffled voice, Tongue elevation - Neck Neck exam: Normal inspection. negative: Meningismus, Tenderness - Respiratory Respiratory exam: Normal lung sounds bilaterally. negative: Rales, Respiratory distress, Rhonchi, Stridor - Cardiovascular Cardiovascular Exam: Regular rate, Normal rhythm, Normal heart sounds Peripheral Pulses: 3+: Radial (R), Radial (L), Dorsalis Pedis (R), Dorsalis Pedis (L) - GI/Abdominal GI/Abdominal exam: Distended (worse distention since admission), Hypoactive bowel sounds, Tenderness (Diffuse TTP on examination, distention is present.). negative: Rebound, Rigid - Rectal Rectal exam: Deferred - exam: Deferred - Extremities Extremities exam: Normal inspection. negative: Calf tenderness, Pedal edema, Tenderness - Back Back exam: Denies: CVA tenderness (R), CVA tenderness (L) - Neurological Neurological exam: Alert, Normal gait, Oriented X3 - Psychiatric Psychiatric exam: Normal affect, Normal mood - Skin Skin exam: Normal color. negative: Abrasion Type of lesion: negative: abrasion Assessment and Plan - Assessment and Plan (1) SBO (small bowel obstruction) Current Visit: Yes Status: Acute Base Code: K56.609 - UNSP INTESTNL OBST, UNSP TO PARTIAL VERSUS COMPLETE OBST Comment: 07/31/18 -NPO (but pt is sippig clear liquids with good tolerance) -mirilax 1gm BID, colace BID, senna HS -BM for d/c - repeat KUB am for resolution/improvement 08/01/18 -repeat KUB was completed HS, repeated this AM r/t increased distenstion -no BM but no nausea, one episode of vomiting that was spontaneous per pt -surgical consult 08/02/18 -Dr Rocha consulted and saw pt late the previous night, reports as medical mgt , given mag cit and allow to clear itself -pt remains distended, had large emesis the previous night of bile and fluid, eye appear blood shot from this event -pt denies nausea at time of visit, D5w still infusing r/t NPO status but pt is sometimes demanding clear liq (drinking swab water) -repeat abd xray am if still distended 08/03/18 -repeat Abd xr shows center SBO with ileus, CT abd/pelvis with PO contrast ordered (uptodate also suggests the the PO contrast can assist with SBO resolution) -pt to repeat mag cit later today -has become aggressive at times with staff to demand clear liquids as pt is having several small liq BMs with no significant change in abd distenstion. she is having some clear liquid, no vomiting, and still having Bms -awaiting CT results for next POC adjustment (2) Crohn disease Current Visit: Yes Status: Acute Qualifiers: Gastrointestinal tract location: unspecified location Digestive disease complication type: with intestinal obstruction Qualified Code(s): K50.912 - Crohn's disease, unspecified, with intestinal obstruction Base Code: K50.90 - CROHN'S DISEASE, UNSPECIFIED, WITHOUT COMPLICATIONS Comment: 07/30/18 -IV steroids until pt tolerated PO, transition to 40mg prednisone -return to Imuran 250mg per [facility] recommendations -f/u [facility] 1 month -start H2 and PPI continue 08/01/18 - heartburn/GERD resolved, nausea resolved -pain improving but abd is more distended -surgical consult, continue IV steroids and home meds -pt reports UO has impoved since 500cc bolus yesterday 08/02/18 -pt continues to have abd distention, abd pain(but greatly improved since addition of IV steroids), nausea -Imuran 250mg daily and bentyl PRN also tolerating and controlling flare 08/03/18 -pt tolerating medication but still distended -pain is reported as controlled and tolerable -continue current meds, will consider transition to all PO meds after CT results (3) Full code status Current Visit: No Status: Acute Base Code: Z78.9 - OTHER SPECIFIED HEALTH STATUS Comment: 08/03/18 -Pt. is a full code (4) At risk for deep venous thrombosis Current Visit: No Status: Acute Base Code: Z91.89 - OTH PERSONAL RISK FACTORS, NOT ELSEWHERE CLASSIFIED Comment: 08/03/18 -lovenox SQ cont Results - Labs Result Diagrams: 07/30/18 20:07 07/31/18 06:27 - Imaging and Cardiology Abdominal x-ray Status: Pending (audio clip reviewed) DVT/PE Assessment - Risk for VTE Risk for VTE: Yes Risk Level: Moderate Risk Assessment Date: 07/31/18 Risk Assessment Time: 12:26 VTE Orders Placed or Will Be Placed: Yes - Active Medicaitons Current Medications: Current Medications Albuterol Sulfate (Ventolin Hfa) 2 puff INH Q4H PRN PRN Reason: SHORTNESS OF BREATH Bupropion HCl (Wellbutrin Sr) 300 mg PO QAM [facility] Last Admin: 08/02/18 10:06 Dose: 300 mg Dicyclomine HCl (Bentyl) 10 mg PO TID PRN PRN Reason: CRAMP Docusate Sodium (Colace) 100 mg PO BID [facility] Last Admin: 08/02/18 22:34 Dose: 100 mg Enoxaparin Sodium (Lovenox) 40 mg SQ DAILY [facility] Last Admin: 08/02/18 10:08 Dose: 40 mg Famotidine (Pepcid) 20 mg PO DAILY [facility] Last Admin: 08/02/18 10:06 Dose: 20 mg Acetaminophen (Ofirmev) 1,000 mg in 100 mls @ 400 mls/hr IVPB Q6H [facility] Last Infusion: 08/03/18 07:44 Dose: Infused Dextrose () 1,000 mls @ 125 mls/hr IV .Q8H [facility] Last Admin: 08/03/18 08:13 Dose: Not Given Lamotrigine (Lamictal) 100 mg PO QHS [facility] Last Admin: 08/02/18 22:35 Dose: 100 mg Methylprednisolone Sodium Succinate (Solu-Medrol) 60 mg IVP DAILY [facility] Last Admin: 08/02/18 10:09 Dose: 60 mg Morphine Sulfate (Morphine Sulfate) 5 mg IVP Q4H PRN PRN Reason: PAIN - MOD TO SEVERE (5-10) Last Admin: 08/03/18 07:43 Dose: 5 mg Non-Formulary Medication (Aripiprazole [Aripiprazole]) 15 mg PO DAILY [facility] Last Admin: 08/02/18 10:06 Dose: Not Given Ondansetron HCl (Zofran) 4 mg IVP Q4H PRN PRN Reason: NAUSEA Last Admin: 08/03/18 07:45 Dose: 4 mg [facility] Last Admin: 08/03/18 06:24 Dose: 40 mg Patient Own Med: (Azathioprine 50 Mg) 5 each PO DAILY [facility] Last Admin: 08/02/18 10:07 Dose: 5 each Polyethylene Glycol (Miralax) 17 gm PO BID [facility] Last Admin: 08/02/18 22:35 Dose: 17 gm Trazodone HCl (Desyrel) 100 mg PO QHS [facility] Last Admin: 08/02/18 22:34 Dose: 100 mg Trazodone HCl (Desyrel) 50 mg PO QHS PRN PRN Reason: SLEEP Venlafaxine HCl (Effexor Xr) 75 mg PO DAILY [facility] Last Admin: 08/02/18 10:08 Dose: 75 mg AMI Plan - Labs Result Diagrams: 07/30/18 20:07 07/31/18 06:27
[2018-08-03] MEDS ORDERED: MAGNESIUM CITRATE 296 ML BTL PO ONE (10:25)
[2018-08-03] MEDS: ARIPIPRAZOLE 15 MG PO SCH (11:51)
[2018-08-03] MEDS: DOCUSATE SODIUM 100 MG CAPSULE PO SCH ×2 (11:54→21:32)
[2018-08-03] MEDS: FAMOTIDINE 20MG TABLET PO SCH (11:54)
[2018-08-03] MEDS: VENLAFAXINE ER 75 MG CAPSULE PO SCH (11:55)
[2018-08-03] MEDS: PATIENT OWN MED: AZATHIOPRINE 50 MG PO SCH (11:55)
[2018-08-03] MEDS: POLYETHYLENE GLY 17 GM PACKET PO SCH ×2 (12:00→21:32)
[2018-08-03] MEDS: METHYLPREDNISOLONE PF 125MG/VIAL IVP SCH (12:02)
[2018-08-03] MEDS: ENOXAPARIN 40 MG/0.4 ML SYR SQ SCH (12:03)
[2018-08-03] MEDS: BUPROPION HCL 150 MG TAB.SR.12H PO SCH (12:03)
--- NOTE | 2018-08-03 18:28 | RADIOLOGY REPORT ---
EXAM: ABDOMEN 1 VIEW HISTORY: ABDOMINAL PAIN. TECHNIQUE: Single view of the abdomen was performed. COMPARISON: 07/31/2018. FINDINGS: Redemonstrated is a single dilated loop of small bowel. Post-op surgical sutures in the right upper quadrant. Early or partial small bowel obstruction cannot be entirely excluded. IMPRESSION: SINGLE DILATED LOOP OF SMALL BOWEL REDEMONSTRATED. JOB NUMBER: [id number] [facility]
[2018-08-03] MEDS: LAMOTRIGINE 100 MG TABLET PO SCH (21:31)
[2018-08-03] MEDS: TRAZODONE 50 MG TABLET PO SCH (21:31)
[2018-08-04] MEDS: ACETAMINOPHEN 1,000 MG/100 ML BTL IVPB SCH ×4 (01:17→18:31)
[2018-08-04] MEDS: ONDANSETRON HCL IV 4 MG/2 ML VIAL IVP PRN ×7 (01:22→22:42)
[2018-08-04] MEDS: MORPHINE SULFATE 10 MG/ML VIAL IVP PRN ×6 (01:23→22:41)
[2018-08-04] MEDS: DEXTROSE 5 % IN WATER 1,000 ML IV SCH ×3 (05:35→21:42)
[2018-08-04] MEDS: PANTOPRAZOLE SODIUM 40 MG TABLET PO SCH (06:18)
--- NOTE | 2018-08-04 07:24 | RADIOLOGY REPORT ---
EXAM: ABDOMEN HISTORY: ABDOMINAL PAIN. TECHNIQUE: A single AP view of the abdomen was performed. FINDINGS: Mild distended air filled loops of small bowel in the central abdomen. Findings may be related to ileus. Early or partial small bowel obstruction not excluded. No evidence of free air. IMPRESSION: MILDLY DISTENDED LOOPS OF SMALL BOWEL IN THE CENTRAL ABDOMEN. FINDINGS MAY BE RELATED TO ILEUS. EARLY OR PARTIAL SMALL BOWEL OBSTRUCTION CANNOT BE EXCLUDED. JOB NUMBER: [id number] [facility]
--- NOTE | 2018-08-04 07:28 | CT SCAN REPORT ---
EXAM: CT OF THE ABDOMEN AND PELVIS WITHOUT CONTRAST HISTORY: SMALL BOWEL OBSTRUCTION. TECHNIQUE: Sequential axial images were obtained from the diaphragms through the ischiorectal fossa without intravenous contrast administration. FINDINGS: There are dilated loops of small bowel with a transition point in the right upper quadrant at the anastomosis. The colon is decompressed. The uterus and adnexal structures are normal. The urinary bladder appears normal. The osseous structures are normal. IMPRESSION: SMALL BOWEL OBSTRUCTION WITH A TRANSITION POINT IN THE RIGHT UPPER QUADRANT AT THE ANASTOMOSIS. THE REMAINDER OF THE EXAMINATION IS UNREMARKABLE. JOB NUMBER: [id number] [facility]
[2018-08-04 07:48] LABS: BASO % 0.1 % (0-6); EOS % 1.1 % (0-6); GRAN % 60.8 % (47-80); HEMATOCRIT 36.6 % (35.0-47.0); HEMOGLOBIN 11.9 gm/dl (11.6-16.0); LYMPH % 26.1 % (16-45); MEAN CELL VOLUME 86.3 fl (81-97); MEAN CORPUSCULAR HEMOGLOBIN 28.1 pg (27-33); MEAN CORPUSCULAR HGB CONC 32.5 g/dl (32-36); MEAN PLATELET VOLUME 7.9 fl (7.4-10.4); MONO % 11.9 % (0-9); PLATELET COUNT 745 K/uL (130-400); RED BLOOD COUNT 4.24 M/uL (3.80-5.40); RED CELL DISTRIBUTION WIDTH 14.7 % (11.5-14.5)
[2018-08-04 08:09] LABS: ALB/GLOB RATIO 1.7 (1.1-1.8); ALBUMIN 3.8 g/dL (4.0-5.0); BILIRUBIN,TOTAL 0.3 mg/dL (0.2-1.0); CREATININE 1.1 mg/dL (0.5-0.9); TOTAL PROTEIN 6.1 g/dL (6.6-8.7)
[2018-08-04] MEDS: ARIPIPRAZOLE 15 MG PO SCH (10:01)
[2018-08-04] MEDS: VENLAFAXINE ER 75 MG CAPSULE PO SCH (10:02)
[2018-08-04] MEDS: DOCUSATE SODIUM 100 MG CAPSULE PO SCH ×2 (10:02→21:43)
[2018-08-04] MEDS: ENOXAPARIN 40 MG/0.4 ML SYR SQ SCH (10:02)
[2018-08-04] MEDS: FAMOTIDINE 20MG TABLET PO SCH (10:04)
[2018-08-04] MEDS: PATIENT OWN MED: AZATHIOPRINE 50 MG PO SCH (10:04)
[2018-08-04] MEDS: POLYETHYLENE GLY 17 GM PACKET PO SCH ×3 (10:04→21:39)
[2018-08-04] MEDS: METHYLPREDNISOLONE PF 125MG/VIAL IVP SCH (10:05)
[2018-08-04] MEDS: BUPROPION HCL 150 MG TAB.SR.12H PO SCH (10:05)
--- NOTE | 2018-08-04 13:30 | Physician Courtesy Letter ---
DATE: 08/04/2018 The patient is seen this morning. She states that she feels okay. She stated her pain is no worse. She rates it about a 2/10 to 3/10. She did have a large emesis yesterday morning but nothing since. She states that she has had some small bowel movements as well. Repeat CT scan was done yesterday which did show slight worsening of her small bowel distention with potential obstruction at the anastomosis. PHYSICAL EXAMINATION: VITAL SIGNS: Currently her vital signs are stable. She is afebrile. HEART: Regular. LUNGS: Clear. ABDOMEN: Soft. Mildly distended. Bowel sounds are noted. EXTREMITIES: No trace of edema. LABORATORY DATA: She has no had laboratory values drawn since 07/31/2018. IMPRESSION: Partial small bowel obstruction. PLAN: I would recommend continuing following her clinically. I would repeat laboratory values today with a CBC and BMP. If she has additional emesis, I would place a nasogastric tube and potentially move her to [facility] for further intervention. This was discussed in detail with the patient and nurse. Thank you for this referral. BENTLEY
--- NOTE | 2018-08-04 13:30 | Medical Records Consult ---
DATE OF CONSULTATION: 08/01/2018 REASON FOR CONSULTATION: Small bowel obstruction. HISTORY OF PRESENT ILLNESS: The patient is a 37-year-old female who has had a 15-year history of Crohn disease. She was recently hospitalized here at [facility] for a partial small bowel obstruction. This was handled conservatively and she was sent home. She stated she developed increasing amounts of distention, abdominal pain, and nausea. Therefore, she was readmitted to the hospital yesterday. CT scan was not repeated. Plain films were done which did show some dilated small bowel where a bowel obstruction could not be ruled out. She has had one laparotomy for her Crohn's back on the mid with Dr. Kathy almanzar in [facility]. She states that she has been on Imuran since then. She was recently taken off about 13 weeks ago before her breast reduction surgery, and this has been recently restarted. Since being in the hospital here, she has been 60 mg of steroids IV daily. Currently she states she feels much better. She had 2 bowel movements today. She had a small emesis this morning but feels like she wants to eat currently. PAST MEDICAL HISTORY: Significant for Crohn disease, depression, anxiety, GERD, COPD. PAST SURGICAL HISTORY: Exploratory laparotomy with ileocecectomy. She had a prior appendectomy. She has had anal fistulotomy and breast reduction. Currently in the hospital. CURRENT MEDICATIONS: 1. Ventolin. 2. Wellbutrin. 3. Bentyl. 4. Colace. 5. Lovenox. 6. Pepcid. 7. Lamictal. 8. Solu-Medrol. 9. Morphine. ALLERGIES: KEFLEX, DILAUDID. PHYSICAL EXAMINATION: VITAL SIGNS: Stable. She is afebrile. HEART: Regular in rate and rhythm. LUNGS: Decreased. ABDOMEN: Soft. Mildly distended. She has striae noted throughout. She has midline diastasis noted. She has a well-healed midline laparotomy scar noted. Her bowel sounds are noted. EXTREMITIES: No traces of edema. RADIOGRAPHIC DATA: I did review her plain film x-ray which does show a dilated sentinel loop of small bowel. She does have gas and air in her colon. IMPRESSION: Partial small bowel obstruction secondary to Crohn's flare. PLAN: She currently is stable, having bowel movements, and the nausea has subsided. I did recommend continued bowel stimulus. I feel she is okay to start sips of clears with ice chips. We will follow her conservatively. If she declines clinically, we would move her to [facility] where best nephrology could evaluate her. This was discussed in detail with the patient, her , and nursing staff. Thank you for this referral. CC: MD BENTLEY Easton
--- NOTE | 2018-08-04 14:07 | Physician Progress Note ---
Subjective - Date Date of Physician Progress Note: 08/04/18 - Subjective Subjective Comment: 08/04/18 Dr Rocha rounded on pt this AM, NG to be placed if pt vomits again. Then transfer to [facility] per Dr Rocha for SBO mgt. Pt in no distress, abd remains distended but not painful. Pt still having small , liq BMs, NPO except for meds. D5W infusing r/t NPO status. Pain and nausea controlled with IV steroids, MS 5mg , and Zofran 4mg IV. Location: Abdomen Objective - Vital Signs Vital Signs: Vital Signs - Last 24 Hrs Temp Pulse Resp BP BP Pulse Ox 08/04/18 08:00 97.9 F 94 H 18 154/96 94 L 08/03/18 20:00 98.0 F 90 18 144/94 93 L 08/03/18 16:55 98.1 F 140/87 08/03/18 16:00 98.4 F 104 H 18 133/92 95 - General General Appearance: Alert, Oriented x3, Cooperative, No acute distress Limitations: No limitations - Head Head exam: Atraumatic, Normocephalic, Normal inspection Head exam detail: negative: Abrasion, Contusion, Cote's sign, General tenderness, Hematoma, Laceration - Eye Eye exam: Normal appearance. negative: Conjunctival injection, Periorbital swelling, Periorbital tenderness, Scleral icterus - ENT ENT exam: Normal exam, Mucous membranes moist Ear exam: Normal external inspection. negative: Auricular hematoma, Auricular trauma Nasal Exam: negative: Active bleeding, Discharge, Dried blood, Foreign body Mouth exam: negative: Drooling, Laceration, Muffled voice, Tongue elevation - Neck Neck exam: Normal inspection. negative: Meningismus, Tenderness - Respiratory Respiratory exam: Normal lung sounds bilaterally. negative: Rales, Respiratory distress, Rhonchi, Stridor - Cardiovascular Cardiovascular Exam: Regular rate, Normal rhythm, Normal heart sounds Peripheral Pulses: 3+: Radial (R), Radial (L), Dorsalis Pedis (R), Dorsalis Pedis (L) - GI/Abdominal GI/Abdominal exam: Distended (worse distention since admission), Hypoactive bowel sounds, Tenderness (Diffuse TTP on examination, distention is present.). negative: Rebound, Rigid - Rectal Rectal exam: Deferred - exam: Deferred - Extremities Extremities exam: Normal inspection. negative: Calf tenderness, Pedal edema, Tenderness - Back Back exam: Denies: CVA tenderness (R), CVA tenderness (L) - Neurological Neurological exam: Alert, Normal gait, Oriented X3 - Psychiatric Psychiatric exam: Normal affect, Normal mood - Skin Skin exam: Normal color. negative: Abrasion Type of lesion: negative: abrasion Assessment and Plan - Assessment and Plan (1) SBO (small bowel obstruction) Current Visit: Yes Status: Acute Base Code: K56.609 - UNSP INTESTNL OBST, UNSP TO PARTIAL VERSUS COMPLETE OBST Comment: 07/31/18 -NPO (but pt is sippig clear liquids with good tolerance) -mirilax 1gm BID, colace BID, senna HS -BM for d/c - repeat KUB am for resolution/improvement 08/01/18 -repeat KUB was completed HS, repeated this AM r/t increased distenstion -no BM but no nausea, one episode of vomiting that was spontaneous per pt -surgical consult 08/02/18 -Dr Rocha consulted and saw pt late the previous night, reports as medical mgt , given mag cit and allow to clear itself -pt remains distended, had large emesis the previous night of bile and fluid, eye appear blood shot from this event -pt denies nausea at time of visit, D5w still infusing r/t NPO status but pt is sometimes demanding clear liq (drinking swab water) -repeat abd xray am if still distended 08/03/18 -repeat Abd xr shows center SBO with ileus, CT abd/pelvis with PO contrast ordered (uptodate also suggests the the PO contrast can assist with SBO resolution) -pt to repeat mag cit later today -has become aggressive at times with staff to demand clear liquids as pt is having several small liq BMs with no significant change in abd distenstion. she is having some clear liquid, no vomiting, and still having Bms -awaiting CT results for next POC adjustment 08/04/18 -CT results show SBO at previous surgical site, Dr Rocha rounded on pt this AM -continue med mgt with mirilax BID, mag cit qd, if pt vomits again place and will transfer to [facility] per Dr Rocha instructions -pt updated with POC, continues NPO except meds, will notify staff of any new emesis -cont monitor pt condition (2) Crohn disease Current Visit: Yes Status: Acute Qualifiers: Gastrointestinal tract location: unspecified location Digestive disease complication type: with intestinal obstruction Qualified Code(s): K50.912 - Crohn's disease, unspecified, with intestinal obstruction Base Code: K50.90 - CROHN'S DISEASE, UNSPECIFIED, WITHOUT COMPLICATIONS Comment: 07/30/18 -IV steroids until pt tolerated PO, transition to 40mg prednisone -return to Imuran 250mg per [facility] recommendations -f/u [facility] 1 month -start H2 and PPI continue 08/01/18 - heartburn/GERD resolved, nausea resolved -pain improving but abd is more distended -surgical consult, continue IV steroids and home meds -pt reports UO has impoved since 500cc bolus yesterday 08/02/18 -pt continues to have abd distention, abd pain(but greatly improved since addition of IV steroids), nausea -Imuran 250mg daily and bentyl PRN also tolerating and controlling flare 08/03/18 -pt tolerating medication but still distended -pain is reported as controlled and tolerable -continue current meds, will consider transition to all PO meds after CT results 08/04/18 -pt remains distended but reports pain controlled currently -continue IV steroids and remaining PO meds (3) Full code status Current Visit: No Status: Acute Base Code: Z78.9 - OTHER SPECIFIED HEALTH STATUS Comment: 08/04/18 -Pt. is a full code (4) At risk for deep venous thrombosis Current Visit: No Status: Acute Base Code: Z91.89 - OTH PERSONAL RISK FACTORS, NOT ELSEWHERE CLASSIFIED Comment: 08/04/18 -lovenox 40mg SQ cont Results - Labs Result Diagrams: 08/04/18 07:40 08/04/18 07:40 Labs Last 24 Hours: Laboratory Results - last 24 hr 08/04/18 08/04/18 07:40 07:40 WBC 10.0 RBC 4.24 Hgb 11.9 Hct 36.6 MCV 86.3 MCH 28.1 MCHC 32.5 RDW 14.7 H Plt Count 745 H MPV 7.9 Gran % 60.8 Lymphocytes % 26.1 Monocytes % 11.9 H Eosinophils % 1.1 Basophils % 0.1 Sodium 135 L Potassium 3.1 L Chloride 87 L Carbon Dioxide 39.0 H Anion Gap 9.0 BUN 10 Creatinine 1.1 H Estimated GFR 59 Random Glucose 99 Calcium 9.4 Total Bilirubin 0.30 AST 9 L ALT 8 Alkaline Phosphatase 82 Total Protein 6.1 L Albumin 3.8 L Globulin 2.3 Albumin/Globulin Ratio 1.7 - Imaging and Cardiology CT scan - abdomen Status: Pending (audio clip reviewed) DVT/PE Assessment - Risk for VTE Risk for VTE: No Risk Level: Moderate Risk Assessment Date: 07/31/18 Risk Assessment Time: 12:26 VTE Orders Placed or Will Be Placed: Yes - Active Medicaitons Current Medications: Current Medications Albuterol Sulfate (Ventolin Hfa) 2 puff INH Q4H PRN PRN Reason: SHORTNESS OF BREATH Bupropion HCl (Wellbutrin Sr) 300 mg PO QAM [facility] Last Admin: 08/04/18 10:05 Dose: 300 mg Dicyclomine HCl (Bentyl) 10 mg PO TID PRN PRN Reason: CRAMP Docusate Sodium (Colace) 100 mg PO BID [facility] Last Admin: 08/04/18 10:02 Dose: 100 mg Enoxaparin Sodium (Lovenox) 40 mg SQ DAILY [facility] Last Admin: 08/04/18 10:02 Dose: 40 mg Famotidine (Pepcid) 20 mg PO DAILY [facility] Last Admin: 08/04/18 10:04 Dose: 20 mg Acetaminophen (Ofirmev) 1,000 mg in 100 mls @ 400 mls/hr IVPB Q6H [facility] Last Admin: 08/04/18 11:56 Dose: 200 mls/hr Dextrose () 1,000 mls @ 125 mls/hr IV .Q8H [facility] Last Admin: 08/04/18 11:57 Dose: 125 mls/hr Lamotrigine (Lamictal) 100 mg PO QHS [facility] Last Admin: 08/03/18 21:31 Dose: 100 mg Methylprednisolone Sodium Succinate (Solu-Medrol) 60 mg IVP DAILY [facility] Last Admin: 08/04/18 10:05 Dose: 60 mg Morphine Sulfate (Morphine Sulfate) 5 mg IVP Q4H PRN PRN Reason: PAIN - MOD TO SEVERE (5-10) Last Admin: 08/04/18 10:07 Dose: 5 mg Non-Formulary Medication (Aripiprazole [Aripiprazole]) 15 mg PO DAILY [facility] Last Admin: 08/04/18 10:01 Dose: Not Given Ondansetron HCl (Zofran) 4 mg IVP Q4H PRN PRN Reason: NAUSEA Last Admin: 08/04/18 10:07 Dose: 4 mg Pantoprazole Sodium (Protonix) 40 mg PO DAILYAC [facility] Last Admin: 08/04/18 06:18 Dose: 40 mg Patient Own Med: (Azathioprine 50 Mg) 5 each PO DAILY [facility] Last Admin: 08/04/18 10:04 Dose: 5 each Polyethylene Glycol (Miralax) 17 gm PO BID [facility] Last Admin: 08/04/18 10:04 Dose: Not Given Trazodone HCl (Desyrel) 100 mg PO QHS [facility] Last Admin: 08/03/18 21:31 Dose: 100 mg Trazodone HCl (Desyrel) 50 mg PO QHS PRN PRN Reason: SLEEP Venlafaxine HCl (Effexor Xr) 75 mg PO DAILY [facility] Last Admin: 08/04/18 10:02 Dose: 75 mg AMI Plan - Labs Result Diagrams: 08/04/18 07:40 08/04/18 07:40
[2018-08-04] MEDS ORDERED: MAGNESIUM CITRATE 296 ML BTL PO ONE (14:41)
[2018-08-04] MEDS ORDERED: SOD CHLOR 0.9% WITH KCL 40MEQ 40 MEQ/1,000 ML IV.SOLN IV ONE (21:14)
[2018-08-04] MEDS: TRAZODONE 50 MG TABLET PO SCH (21:43)
[2018-08-04] MEDS: LAMOTRIGINE 100 MG TABLET PO SCH (21:43)
[2018-08-05] MEDS: ACETAMINOPHEN 1,000 MG/100 ML BTL IVPB SCH ×3 (01:13→12:04)
[2018-08-05] MEDS: MORPHINE SULFATE 10 MG/ML VIAL IVP PRN ×2 (03:32→07:34)
[2018-08-05] MEDS: ONDANSETRON HCL IV 4 MG/2 ML VIAL IVP PRN ×4 (03:32→21:51)
[2018-08-05] MEDS: PANTOPRAZOLE SODIUM 40 MG TABLET PO SCH (06:30)
[2018-08-05] MEDS ORDERED: MAGNESIUM CITRATE 296 ML BTL PO SCH (10:00)
[2018-08-05 10:14] LABS: BASO % 0.1 % (0-6); EOS % 1.6 % (0-6); GRAN % 58.5 % (47-80); HEMATOCRIT 36.8 % (35.0-47.0); HEMOGLOBIN 11.9 gm/dl (11.6-16.0); LYMPH % 29.4 % (16-45); MEAN CELL VOLUME 87.4 fl (81-97); MEAN CORPUSCULAR HEMOGLOBIN 28.3 pg (27-33); MEAN CORPUSCULAR HGB CONC 32.3 g/dl (32-36); MONO % 10.4 % (0-9); PLATELET COUNT 685 K/uL (130-400); RED BLOOD COUNT 4.21 M/uL (3.80-5.40); RED CELL DISTRIBUTION WIDTH 14.9 % (11.5-14.5)
[2018-08-05 10:35] LABS: CREATININE 1.2 mg/dL (0.5-0.9)
[2018-08-05] MEDS: ARIPIPRAZOLE 15 MG PO SCH (10:41)
[2018-08-05] MEDS: VENLAFAXINE ER 75 MG CAPSULE PO SCH (10:41)
[2018-08-05] MEDS: ENOXAPARIN 40 MG/0.4 ML SYR SQ SCH (10:41)
[2018-08-05] MEDS: BUPROPION HCL 150 MG TAB.SR.12H PO SCH (10:41)
[2018-08-05] MEDS: FAMOTIDINE 20MG TABLET PO SCH (10:41)
[2018-08-05] MEDS: DOCUSATE SODIUM 100 MG CAPSULE PO SCH ×2 (10:42→21:53)
[2018-08-05] MEDS: POTASSIUM CHLORIDE/D5-0.9%NACL 20 MEQ/1,000 ML BAG IV SCH ×3 (10:42→21:55)
[2018-08-05] MEDS: METHYLPREDNISOLONE PF 125MG/VIAL IVP SCH (10:43)
[2018-08-05] MEDS: POLYETHYLENE GLY 17 GM PACKET PO SCH (10:43)
[2018-08-05] MEDS: PATIENT OWN MED: AZATHIOPRINE 50 MG PO SCH (10:43)
[2018-08-05] MEDS ORDERED: MORPHINE SULFATE 10 MG/ML VIAL IVP ONE (11:51)
[2018-08-05] MEDS: ACETAMINOPHEN 500 MG TABLET PO PRN (12:00)
--- NOTE | 2018-08-05 12:38 | Physician Progress Note ---
Subjective - Date Date of Physician Progress Note: 08/05/18 - Subjective Subjective Comment: Pt states that she is fatigued and "starving" but otherwise states that her pain has improved from 9/10 on admission to 4/10. She had had several episodes of loose stool over the last 2 days and states that her belly is very active. She hears a lot of bowel sounds this morning. She is urinating well. No nausea or vomiting. Would like to try a CLD if possible. Objective - Vital Signs Vital Signs: Vital Signs - Last 24 Hrs Temp Pulse Resp BP Pulse Ox 08/05/18 08:00 98.2 F 77 18 149/72 98 08/05/18 07:42 18 08/04/18 20:00 98.1 F 97 H 18 136/90 93 L 08/04/18 16:00 98.4 F 102 H 18 146/92 98 - General General Appearance: Alert, Oriented x3, Cooperative, No acute distress Limitations: No limitations - Head Head exam: Atraumatic, Normocephalic, Normal inspection Head exam detail: negative: Abrasion, Contusion, Cote's sign, General tenderness, Hematoma, Laceration - Eye Eye exam: Normal appearance. negative: Conjunctival injection, Periorbital swelling, Periorbital tenderness, Scleral icterus - ENT ENT exam: Normal exam, Mucous membranes moist Ear exam: Normal external inspection. negative: Auricular hematoma, Auricular trauma Nasal Exam: negative: Active bleeding, Discharge, Dried blood, Foreign body Mouth exam: negative: Drooling, Laceration, Muffled voice, Tongue elevation - Neck Neck exam: Normal inspection. negative: Meningismus, Tenderness - Respiratory Respiratory exam: Normal lung sounds bilaterally. negative: Rales, Respiratory distress, Rhonchi, Stridor - Cardiovascular Cardiovascular Exam: Regular rate, Normal rhythm, Normal heart sounds - GI/Abdominal GI/Abdominal exam: Soft, Hyperactive bowel sounds, Tenderness (only in the RLQ with palpation). negative: Distended, Guarding, Rebound, Rigid - Rectal Rectal exam: Deferred - exam: Deferred - Extremities Extremities exam: Normal inspection. negative: Calf tenderness, Pedal edema, Tenderness - Back Back exam: Denies: CVA tenderness (R), CVA tenderness (L) - Neurological Neurological exam: Alert, Oriented X3 - Psychiatric Psychiatric exam: Normal affect, Normal mood - Skin Skin exam: Normal color. negative: Abrasion Type of lesion: negative: abrasion Assessment and Plan - Assessment and Plan (1) SBO (small bowel obstruction) Current Visit: Yes Status: Acute Base Code: K56.609 - UNSP INTESTNL OBST, UNSP TO PARTIAL VERSUS COMPLETE OBST Priority: High Comment: 08/05/18 - Pt having abd pain and SBO at previous surgical site likely 2/2 to adhesions. - Pt complains of having loose stool for the last 24 hours. - No nausea or vomiting. Zofran and bentyl PRN if needed. Avoid if possible to prevent constipation. - Rpt XR shows mild dilation of bowel loop in the area. - Pt has been tolerating sips with meds very well. - Will hold mag citrate and miralax given diarrhea. - Tylenol Q 6 hours PRN abd pain. - Reduce morphine from 5mg Q4 to 1mg Q4hr to further reduce any future constipation. - Will advance to CLD given good appearance on exam, only mild tenderness, no distention, hyperactive bowel sounds. - Possibly advance diet in AM if tolerated. - Given hypokalemia, hyponatremia, and has been NPO will switch fluids to 0.9% NaCl, 20meq K+, with dextrose. Q 5 hours - will reassess in AM with BMP. - will monitor closely. (2) Crohn's colitis Current Visit: No Status: Acute Qualifiers: Digestive disease complication type: unspecified complication Qualified Code(s): K50.119 - Crohn's disease of large intestine with unspecified complications Base Code: K50.10 - CROHN'S DISEASE OF LARGE INTESTINE WITHOUT COMPLICATIONS Comment: 08/05/18: - Prednisone 40mg daily. - Continue Imuran 250mg daily. - Protonix for sx relief (3) At risk for deep venous thrombosis Current Visit: No Status: Acute Base Code: Z91.89 - OTH PERSONAL RISK FACTORS, NOT ELSEWHERE CLASSIFIED Comment: 08/05/18 -lovenox 40mg SQ cont (4) Full code status Current Visit: No Status: Acute Base Code: Z78.9 - OTHER SPECIFIED HEALTH STATUS Comment: 08/05/18 -Pt. is a full code - Disposition Disposition: Pending able to tolerate soft diet. Results - Labs Result Diagrams: 08/05/18 09:58 08/05/18 09:58 Labs Last 24 Hours: Laboratory Results - last 24 hr 08/05/18 08/05/18 09:58 09:58 WBC 10.0 RBC 4.21 Hgb 11.9 Hct 36.8 MCV 87.4 MCH 28.3 MCHC 32.3 RDW 14.9 H Plt Count 685 H MPV 8.0 Gran % 58.5 Lymphocytes % 29.4 Monocytes % 10.4 H Eosinophils % 1.6 Basophils % 0.1 Absolute Neutrophils Not Reportable Sodium 137 Potassium 3.4 Chloride 89 L Carbon Dioxide 38.0 H Anion Gap 10.0 BUN 12 Creatinine 1.2 H Estimated GFR 53 Random Glucose 93 Calcium 9.4 DVT/PE Assessment - Risk for VTE Risk for VTE: No Risk Level: Moderate Risk Assessment Date: 07/31/18 Risk Assessment Time: 12:26 VTE Orders Placed or Will Be Placed: Yes - Active Medicaitons Current Medications: Current Medications Acetaminophen (Tylenol 500mg Tab) 1,000 mg PO Q6H PRN PRN Reason: PAIN - MILD (1-4) Last Admin: 08/05/18 12:00 Dose: 1,000 mg Albuterol Sulfate (Ventolin Hfa) 2 puff INH Q4H PRN PRN Reason: SHORTNESS OF BREATH Bupropion HCl (Wellbutrin Sr) 300 mg PO QAM [facility] Last Admin: 08/05/18 10:41 Dose: 300 mg Dicyclomine HCl (Bentyl) 10 mg PO TID PRN PRN Reason: CRAMP Docusate Sodium (Colace) 100 mg PO BID [facility] Last Admin: 08/05/18 10:42 Dose: 100 mg Enoxaparin Sodium (Lovenox) 40 mg SQ DAILY [facility] Last Admin: 08/05/18 10:41 Dose: 40 mg Famotidine (Pepcid) 20 mg PO DAILY [facility] Last Admin: 08/05/18 10:41 Dose: 20 mg Potassium Chloride/Dextrose/Sod Cl () 20 meq in 1,000 mls @ 195 mls/hr IV Q5H [facility] Last Admin: 08/05/18 10:42 Dose: 195 mls/hr Lamotrigine (Lamictal) 100 mg PO QHS [facility] Last Admin: 08/04/18 21:43 Dose: 100 mg Methylprednisolone Sodium Succinate (Solu-Medrol) 60 mg IVP DAILY [facility] Last Admin: 08/05/18 10:43 Dose: 60 mg Morphine Sulfate (Morphine Sulfate) 1 mg IVP Q4H PRN PRN Reason: ABDOMINAL PAIN Non-Formulary Medication (Aripiprazole [Aripiprazole]) 15 mg PO DAILY [facility] Last Admin: 08/05/18 10:41 Dose: 15 mg Ondansetron HCl (Zofran) 4 mg IVP Q4H PRN PRN Reason: NAUSEA Last Admin: 08/05/18 12:01 Dose: 4 mg [facility]op[facility]ole [facility]) [facility] Last Admin: 08/05/18 06:30 Dose: 40 mg Patient Own Med: (Azathioprine 50 Mg) 5 each PO DAILY [facility] Last Admin: 08/05/18 10:43 Dose: 5 each Trazodone HCl (Desyrel) 100 mg PO QHS [facility] Last Admin: 08/04/18 21:43 Dose: 100 mg Trazodone HCl (Desyrel) 50 mg PO QHS PRN PRN Reason: SLEEP Venlafaxine HCl (Effexor Xr) 75 mg PO DAILY [facility] Last Admin: 08/05/18 10:41 Dose: 75 mg AMI Plan - Labs Result Diagrams: 08/05/18 09:58 08/05/18 09:58
[2018-08-05] MEDS: TRAZODONE 50 MG TABLET PO SCH (21:53)
[2018-08-05] MEDS: LAMOTRIGINE 100 MG TABLET PO SCH (21:53)
[2018-08-06] MEDS: POTASSIUM CHLORIDE/D5-0.9%NACL 20 MEQ/1,000 ML BAG IV SCH ×3 (03:03→12:45)
[2018-08-06] MEDS: ACETAMINOPHEN 500 MG TABLET PO PRN ×2 (03:07→10:45)
[2018-08-06] MEDS: PANTOPRAZOLE SODIUM 40 MG TABLET PO SCH (06:56)
[2018-08-06 07:12] LABS: BASO % 0.1 % (0-6); EOS % 0.6 % (0-6); GRAN % 76.5 % (47-80); HEMATOCRIT 36.7 % (35.0-47.0); HEMOGLOBIN 11.5 gm/dl (11.6-16.0); LYMPH % 15.1 % (16-45); MEAN CELL VOLUME 88.2 fl (81-97); MEAN CORPUSCULAR HEMOGLOBIN 27.6 pg (27-33); MEAN CORPUSCULAR HGB CONC 31.3 g/dl (32-36); MONO % 7.7 % (0-9); PLATELET COUNT 728 K/uL (130-400); RED BLOOD COUNT 4.16 M/uL (3.80-5.40); RED CELL DISTRIBUTION WIDTH 15.3 % (11.5-14.5)
[2018-08-06 07:30] LABS: BLOOD UREA NITROGEN 11 mg/dL (6-20); EST GLOMERULAR FILTRATION RATE > 60 mL/min; GLUCOSE,RANDOM 101 mg/dL (74-109)
--- NOTE | 2018-08-06 08:02 | RADIOLOGY REPORT ---
EXAM: ABDOMEN HISTORY: ABDOMINAL PAIN. TECHNIQUE: Two views of the abdomen were performed. FINDINGS: Postop surgical sutures in the right upper quadrant. There are a few minimally distended loops of small bowel in the upper abdomen. No evidence of free air. IMPRESSION: MINIMALLY DISTENDED LOOPS OF SMALL BOWEL IN THE UPPER ABDOMEN. POSTOP SURGICAL SUTURES IN THE RIGHT UPPER QUADRANT. NO EVIDENCE OF FREE AIR. JOB NUMBER: [id number] MTDD
[2018-08-06] MEDS: PREDNISONE 20 MG TAB PO SCH (08:22)
[2018-08-06] MEDS: MORPHINE SULFATE 10 MG/ML VIAL IVP PRN ×4 (09:09→21:41)
[2018-08-06] MEDS: ONDANSETRON HCL IV 4 MG/2 ML VIAL IVP PRN ×3 (09:10→19:30)
[2018-08-06] MEDS ORDERED: SIMETHICONE 80 MG TAB.CHEW PO PRN (09:11)
[2018-08-06] MEDS: ENOXAPARIN 40 MG/0.4 ML SYR SQ SCH (09:57)
[2018-08-06] MEDS: DOCUSATE SODIUM 100 MG CAPSULE PO SCH ×2 (09:58→21:40)
[2018-08-06] MEDS: VENLAFAXINE ER 75 MG CAPSULE PO SCH (09:58)
[2018-08-06] MEDS: FAMOTIDINE 20MG TABLET PO SCH (09:58)
[2018-08-06] MEDS: BUPROPION HCL 150 MG TAB.SR.12H PO SCH (09:58)
[2018-08-06] MEDS: ARIPIPRAZOLE 15 MG PO SCH (10:00)
[2018-08-06] MEDS: PATIENT OWN MED: AZATHIOPRINE 50 MG PO SCH (10:02)
--- NOTE | 2018-08-06 10:04 | Physician Progress Note ---
Subjective - Date Date of Physician Progress Note: 08/06/18 - Subjective Subjective Comment: Pt states that she is feeling pretty good this morning except for feeling like " there is a gas bubble that is floating around in my abdomen causing intermittent pain". She is wondering if she can have gas X. Tolerating her CLD very well. No Nausea or vomiting. 3 loose stools this morning. Pain is tolerable , comes in waves but less tender today. Objective - Vital Signs Vital Signs: Vital Signs - Last 24 Hrs Temp Pulse Pulse Resp BP Pulse Ox 08/06/18 08:31 78 16 08/06/18 08:00 98.2 F 78 16 117/65 95 08/05/18 20:00 98.2 F 89 18 151/92 98 08/05/18 16:00 97.7 F 86 16 134/87 99 - General General Appearance: Alert, Oriented x3, Cooperative, No acute distress Limitations: No limitations - Head Head exam: Atraumatic, Normocephalic, Normal inspection Head exam detail: negative: Abrasion, Contusion, Cote's sign, General tenderness, Hematoma, Laceration - Eye Eye exam: Normal appearance. negative: Conjunctival injection, Periorbital swelling, Periorbital tenderness, Scleral icterus - ENT ENT exam: Normal exam, Mucous membranes moist Ear exam: Normal external inspection. negative: Auricular hematoma, Auricular trauma Nasal Exam: negative: Active bleeding, Discharge, Dried blood, Foreign body Mouth exam: negative: Drooling, Laceration, Muffled voice, Tongue elevation - Neck Neck exam: Normal inspection. negative: Meningismus, Tenderness - Respiratory Respiratory exam: Normal lung sounds bilaterally. negative: Rales, Respiratory distress, Rhonchi, Stridor - Cardiovascular Cardiovascular Exam: Regular rate, Normal rhythm, Normal heart sounds - GI/Abdominal GI/Abdominal exam: Soft, Normal bowel sounds. negative: Distended, Guarding, Rebound, Rigid, Tenderness - Rectal Rectal exam: Deferred - exam: Deferred - Extremities Extremities exam: Normal inspection. negative: Calf tenderness, Pedal edema, Tenderness - Back Back exam: Denies: CVA tenderness (R), CVA tenderness (L) - Neurological Neurological exam: Alert, Oriented X3 - Psychiatric Psychiatric exam: Normal affect, Normal mood - Skin Skin exam: Normal color. negative: Abrasion Type of lesion: negative: abrasion Assessment and Plan - Assessment and Plan (1) SBO (small bowel obstruction) Current Visit: Yes Status: Acute Base Code: K56.609 - UNSP INTESTNL OBST, UNSP TO PARTIAL VERSUS COMPLETE OBST Priority: High Comment: 08/06/18 - Pt having abd pain and SBO at previous surgical site likely 2/2 to adhesions. - Pt complains of having loose stool for the last 48 hours, 3 episodes this morning. - No nausea or vomiting. Zofran and bentyl PRN if needed. Avoid if possible to prevent constipation. - Pt has been tolerating CLD very well. Open to progressing diet. Full liquid diet ordered. - Will hold mag citrate and miralax given diarrhea. - Tylenol Q 6 hours PRN abd pain. - morphine 1mg Q4hr for pain > 5 - Will hold fluids for now since sodium and potassium are back up to normal levels and pt is eating well. - Per pt request will get GI c/s - Gas X TID PRN - will monitor closely. (2) Crohn's colitis Current Visit: Yes Status: Acute Qualifiers: Digestive disease complication type: unspecified complication Qualified Code(s): K50.119 - Crohn's disease of large intestine with unspecified complications Base Code: K50.10 - CROHN'S DISEASE OF LARGE INTESTINE WITHOUT COMPLICATIONS Comment: 08/06/18: - Prednisone 40mg daily. - Continue Imuran 250mg daily. - Protonix for sx relief (3) At risk for deep venous thrombosis Current Visit: Yes Status: Acute Base Code: Z91.89 - OTH PERSONAL RISK FACTORS, NOT ELSEWHERE CLASSIFIED Comment: 08/06/18 -lovenox 40mg SQ cont (4) Full code status Current Visit: Yes Status: Acute Base Code: Z78.9 - OTHER SPECIFIED HEALTH STATUS Comment: 08/06/18 -Pt. is a full code - Disposition Disposition: Pending able to tolerate soft diet. Results - Labs Result Diagrams: 08/06/18 06:13 08/06/18 06:13 Labs Last 24 Hours: Laboratory Results - last 24 hr 08/05/18 08/05/18 08/06/18 09:58 09:58 06:13 WBC 10.0 14.0 H RBC 4.21 4.16 Hgb 11.9 11.5 L Hct 36.8 36.7 MCV 87.4 88.2 MCH 28.3 27.6 MCHC 32.3 31.3 L RDW 14.9 H 15.3 H Plt Count 685 H 728 H MPV 8.0 8.0 Gran % 58.5 76.5 Lymphocytes % 29.4 15.1 L Monocytes % 10.4 H 7.7 Eosinophils % 1.6 0.6 Basophils % 0.1 0.1 Absolute Neutrophils Not Reportable Sodium 137 Potassium 3.4 Chloride 89 L Carbon Dioxide 38.0 H Anion Gap 10.0 BUN 12 Creatinine 1.2 H Estimated GFR 53 Random Glucose 93 Calcium 9.4 08/06/18 06:13 WBC RBC Hgb Hct MCV MCH MCHC RDW Plt Count MPV Gran % Lymphocytes % Monocytes % Eosinophils % Basophils % Absolute Neutrophils Sodium 141 Potassium 4.4 Chloride 106 Carbon Dioxide 25.0 Anion Gap 10.0 BUN 11 Creatinine 1.0 H Estimated GFR > 60 Random Glucose 101 Calcium 8.6 DVT/PE Assessment - Risk for VTE Risk for VTE: No Risk Level: Moderate Risk Assessment Date: 07/31/18 Risk Assessment Time: 12:26 VTE Orders Placed or Will Be Placed: Yes - Active Medicaitons Current Medications: Current Medications Acetaminophen (Tylenol 500mg Tab) 1,000 mg PO Q6H PRN PRN Reason: PAIN - MILD (1-4) Last Admin: 08/06/18 03:07 Dose: 1,000 mg Albuterol Sulfate (Ventolin Hfa) 2 puff INH Q4H PRN PRN Reason: SHORTNESS OF BREATH Bupropion HCl (Wellbutrin Sr) 300 mg PO QAM [facility] Last Admin: 08/05/18 10:41 Dose: 300 mg Dicyclomine HCl (Bentyl) 10 mg PO TID PRN PRN Reason: CRAMP Last Admin: 08/05/18 20:38 Dose: 10 mg Docusate Sodium (Colace) 100 mg PO BID [facility] Last Admin: 08/05/18 21:53 Dose: 100 mg Enoxaparin Sodium (Lovenox) 40 mg SQ DAILY [facility] Last Admin: 08/05/18 10:41 Dose: 40 mg Famotidine (Pepcid) 20 mg PO DAILY [facility] Last Admin: 08/05/18 10:41 Dose: 20 mg Potassium Chloride/Dextrose/Sod Cl () 20 meq in 1,000 mls @ 195 mls/hr IV Q5H [facility] Last Admin: 08/06/18 08:22 Dose: 195 mls/hr Lamotrigine (Lamictal) 100 mg PO QHS [facility] Last Admin: 08/05/18 21:53 Dose: 100 mg Morphine Sulfate (Morphine Sulfate) 1 mg IVP Q4H PRN PRN Reason: ABDOMINAL PAIN Last Admin: 08/06/18 09:09 Dose: 1 mg Non-Formulary Medication (Aripiprazole [Aripiprazole]) 15 mg PO DAILY [facility] Last Admin: 08/05/18 10:41 Dose: 15 mg Ondansetron HCl (Zofran) 4 mg IVP Q4H PRN PRN Reason: NAUSEA Last Admin: 08/06/18 09:10 Dose: 4 mg Pantoprazole Sodium (Protonix) 40 mg PO DAILYAC [facility] Last Admin: 08/06/18 06:56 Dose: 40 mg Patient Own Med: (Azathioprine 50 Mg) 5 each PO DAILY [facility] Last Admin: 08/05/18 10:43 Dose: 5 each Prednisone (Prednisone 20mg) [facility] Last Admin: 08/06/18 08:22 Dose: 40 mg Simethicone (Mylicon) 80 mg PO TID [facility] Trazodone HCl (Desyrel) 100 mg PO QHS [facility] Last Admin: 08/05/18 21:53 Dose: 100 mg Trazodone HCl (Desyrel) 50 mg PO QHS PRN PRN Reason: SLEEP Venlafaxine HCl (Effexor Xr) 75 mg PO DAILY [facility] Last Admin: 08/05/18 10:41 Dose: 75 mg AMI Plan - Labs Result Diagrams: 08/06/18 06:13 08/06/18 06:13
[2018-08-06] MEDS: SIMETHICONE 80 MG TAB.CHEW PO SCH ×3 (10:08→21:40)
[2018-08-06] MEDS ORDERED: MORPHINE SULFATE 10 MG/ML VIAL IVP ONE (13:58)
[2018-08-06] MEDS ORDERED: 0.9% SODIUM CHLORIDE 250ML BAG IV PRN (17:22)
[2018-08-06] MEDS: ACETAMINOPHEN 1,000 MG/100 ML BTL IVPB SCH (17:37)
[2018-08-06] MEDS: POLYETHYLENE GLY 17 GM PACKET PO SCH (20:52)
[2018-08-06] MEDS: LAMOTRIGINE 100 MG TABLET PO SCH (21:40)
[2018-08-06] MEDS: TRAZODONE 50 MG TABLET PO SCH (21:41)
[2018-08-07] MEDS: ACETAMINOPHEN 1,000 MG/100 ML BTL IVPB SCH ×3 (00:02→12:50)
[2018-08-07] MEDS: MORPHINE SULFATE 10 MG/ML VIAL IVP PRN ×4 (01:45→14:43)
[2018-08-07] MEDS: ONDANSETRON HCL IV 4 MG/2 ML VIAL IVP PRN (05:08)
[2018-08-07 06:53] LABS: BASO % 0.2 % (0-6); EOS % 3.1 % (0-6); GRAN % 63.8 % (47-80); HEMATOCRIT 37.5 % (35.0-47.0); HEMOGLOBIN 11.7 gm/dl (11.6-16.0); LYMPH % 22.2 % (16-45); MEAN CELL VOLUME 88.7 fl (81-97); MEAN CORPUSCULAR HEMOGLOBIN 27.7 pg (27-33); MEAN CORPUSCULAR HGB CONC 31.2 g/dl (32-36); MEAN PLATELET VOLUME 7.9 fl (7.4-10.4); MONO % 10.7 % (0-9); PLATELET COUNT 632 K/uL (130-400); RED BLOOD COUNT 4.23 M/uL (3.80-5.40); RED CELL DISTRIBUTION WIDTH 15.4 % (11.5-14.5); WHITE BLOOD COUNT W/O DIFF 8.6 K/uL (4.2-12.2)
[2018-08-07 07:09] LABS: BLOOD UREA NITROGEN 13 mg/dL (6-20); EST GLOMERULAR FILTRATION RATE > 60 mL/min; GLUCOSE,RANDOM 87 mg/dL (74-109)
[2018-08-07] MEDS ORDERED: 0.9 % SODIUM CHLORIDE 1,000 ML BAG IV ONE (07:46)
[2018-08-07] MEDS ORDERED: 0.9 % SODIUM CHLORIDE 1000ML 1,000 ML IV PRN (07:47)
[2018-08-07] MEDS: PANTOPRAZOLE SODIUM 40 MG TABLET PO SCH (07:48)
[2018-08-07] MEDS: PREDNISONE 20 MG TAB PO SCH (07:48)
[2018-08-07] MEDS ORDERED: 0.9 % SODIUM CHLORIDE 1000ML 1,000 ML IV SCH (08:00)
[2018-08-07] MEDS: VENLAFAXINE ER 75 MG CAPSULE PO SCH (10:30)
[2018-08-07] MEDS: POLYETHYLENE GLY 17 GM PACKET PO SCH (10:30)
[2018-08-07] MEDS: BUPROPION HCL 150 MG TAB.SR.12H PO SCH (10:31)
[2018-08-07] MEDS: DOCUSATE SODIUM 100 MG CAPSULE PO SCH (10:32)
[2018-08-07] MEDS: FAMOTIDINE 20MG TABLET PO SCH (10:32)
[2018-08-07] MEDS: ENOXAPARIN 40 MG/0.4 ML SYR SQ SCH (10:33)
[2018-08-07] MEDS: SIMETHICONE 80 MG TAB.CHEW PO SCH (10:33)
[2018-08-07] MEDS: ARIPIPRAZOLE 15 MG PO SCH (10:35)
[2018-08-07] MEDS: PATIENT OWN MED: AZATHIOPRINE 50 MG PO SCH (10:35)
--- NOTE | 2018-08-07 11:09 | Discharge Summary ---
Providers Discharge Summary Date: 08/07/18 Date of admission: 07/30/18 21:31 Expected Date of Discharge: 08/07/18 Attending physician: ANITA MELVIN Primary care physician: MARTÍN YEPEZ M.D. Consults: Consult Orders 07/31/18 08:42 Consult NOW Consulting Provider: CARISSA OSPINA Physician Instructions: pls see pt NATALYA, second admission this week Reason For Exam: Crohn's flare, SBO 08/01/18 11:50 Consult NOW Consulting Provider: DESTINY WHITESIDE Physician Instructions: SBO, needs consult Reason For Exam: SBO 08/06/18 10:05 Consult NOW Consulting Provider: NOE SAVAGE Physician Instructions: Reason For Exam: recurrent SBO, return to hospital after 2 days Physical Exam - Vital Signs Vital Signs: Vital Signs - Last 24 Hrs Temp Pulse Pulse Resp BP BP Pulse Ox 08/07/18 09:00 96 H 16 08/07/18 07:43 98 F 96 H 94 H 16 122/86 94 L 08/07/18 05:39 137/98 92 L 08/06/18 21:00 16 08/06/18 19:52 98.5 F 97 H 18 150/100 99 08/06/18 18:16 97.5 F L 91 H 16 147/101 99 08/06/18 15:06 98.2 F 92 H 16 153/100 95 08/06/18 14:09 98.2 F 117/65 - General General Appearance: Alert, Oriented x3, Cooperative, No acute distress Limitations: No limitations - Head Head exam: Atraumatic, Normocephalic, Normal inspection Head exam detail: negative: Abrasion, Contusion, Cote's sign, General tenderness, Hematoma, Laceration - Eye Eye exam: Normal appearance. negative: Conjunctival injection, Periorbital swelling, Periorbital tenderness, Scleral icterus - ENT ENT exam: Normal exam, Mucous membranes moist Ear exam: Normal external inspection. negative: Auricular hematoma, Auricular trauma Nasal Exam: negative: Active bleeding, Discharge, Dried blood, Foreign body Mouth exam: negative: Drooling, Laceration, Muffled voice, Tongue elevation - Neck Neck exam: Normal inspection. negative: Meningismus, Tenderness - Respiratory Respiratory exam: Normal lung sounds bilaterally. negative: Rales, Respiratory distress, Rhonchi, Stridor - Cardiovascular Cardiovascular Exam: Regular rate, Normal rhythm, Normal heart sounds - GI/Abdominal GI/Abdominal exam: Soft, Distended (mild), Hyperactive bowel sounds, Tenderness (RLQ ). negative: Guarding, Rebound, Rigid - Rectal Rectal exam: Deferred - exam: Deferred - Extremities Extremities exam: Normal inspection. negative: Calf tenderness, Pedal edema, Tenderness - Back Back exam: Denies: CVA tenderness (R), CVA tenderness (L) - Neurological Neurological exam: Alert, Oriented X3 - Psychiatric Psychiatric exam: Normal affect, Normal mood - Skin Skin exam: Normal color. negative: Abrasion Type of lesion: negative: abrasion Hospitalization - Hospitalization Admission Diagnosis: SBO. Crohn's disease - Problem List/Discharge Diagnosis (1) SBO (small bowel obstruction) Current Visit: Yes Status: Acute Base Code: K56.609 - UNSP INTESTNL OBST, UNSP TO PARTIAL VERSUS COMPLETE OBST Comment: 08/07/18 - Pt having abd pain and SBO at previous surgical site likely 2/2 to adhesions. - Pt complains of having loose stool for the last 3 days. - After progressing to full liquid diet yesterday pt had emesis 800cc this morning. She states that this is not abnormal for her and 2/2 to her chron's she also vomits. - KUB showed worsening obstruction this AM. Deppen recommends transfer to [facility]. - Given bolus and 1.5 maintenance IVF @ 195/hr. - will transfer to [facility] for further managment. (2) Crohn's colitis Current Visit: Yes Status: Acute Discharge Diagnosis: Digestive disease complication type: unspecified complication Qualified Code(s): K50.119 - Crohn's disease of large intestine with unspecified complications Base Code: K50.10 - CROHN'S DISEASE OF LARGE INTESTINE WITHOUT COMPLICATIONS Comment: 08/07/18: - Prednisone 40mg daily. - Continue Imuran 250mg daily. - Protonix for sx relief (3) At risk for deep venous thrombosis Current Visit: Yes Status: Acute Base Code: Z91.89 - OTH PERSONAL RISK FACTORS, NOT ELSEWHERE CLASSIFIED Comment: 08/07/18 -lovenox 40mg SQ cont (4) Full code status Current Visit: Yes Status: Acute Base Code: Z78.9 - OTHER SPECIFIED HEALTH STATUS Comment: 08/07/18 -Pt. is a full code - Disposition Transfer to [facility] - Hospitalization Course Disposition: Acute Care Hospital Transfer Hospital Course: 37 yo female presents for admission for partial SBO and Crohn's flare. Pt has been off her budesonide for 6 weeks s/p breast reduction surgery. Surgeon stopped her medication to promote healing. This is second admission in the past 2 weeks for the same. Pt reports N/V, abd pain, and bloating that has been increasing in severity and frequency since stopping Imuran 250mg per plastic surgeon recommendation for cessation for 6 weeks. Last admission 07/23/18-07/27/18 for same. Pt presented to [facility] ER for increased abd pain, bloating and nausea. ABD XR shows dialated loop SB left susanne-abd. (Ct reviewed from previous admission) BP 131/100, HR 144, RR 20, 95% RA, 97.9F, repeat vitals in 1 hours BP 124/92, HR 118, RR 18 WBC 10.3, Hgb 13.4, Hct 41.1, Plt 510 NA 138, K 5 (hemolyzed), CL 100, Co2 22, BUN 17, Cr 1.1, GFR 59, glucose 102, lipase 39, LFTs normal. Pt given 1L NS, 5mg MS, 4mg Zofran and was reporting improvement in pain. Admission for SBO and Crohn's Flare Hospital Course: Pt was restarted on prednisone and her Imuran. Her obstruction seemed to get better over time with decreased oral intake, IVF, and laxatives. She was progressed to CLD on 08/05/18 with KUB showing decrease in obstruction, she tolerated the CLD well. On 08/06/18 she progressed to full liquid diet and tolerated that well. On 08/07/18 she had one episode of brown emesis 800cc, KUB was done and looked like worsening of obstruction. Based on this finding Dr Rocha suggested transfer to [facility] for further management. Procedures: Imaging and X-Rays 07/30/18 19:49 ABDOMEN, ACUTE SERIES [RAD] Stat 07/31/18 18:52 ABDOMEN 1 VIEW [RAD] Stat 08/01/18 11:49 ABDOMEN 1 VIEW [RAD] Stat 08/03/18 08:50 ABDOMEN 1 VIEW [RAD] Stat 08/03/18 10:42 ABDOMEN/PELVIS WO CONTRAST [CT] Stat 08/05/18 11:07 ABDOMEN 1 VIEW [RAD] Stat 08/07/18 10:08 ABDOMEN 1 VIEW [RAD] Stat Abnormal Labs: Abnormal Lab Results 07/30/18 07/30/18 07/31/18 Range/Units 20:07 20:07 06:27 WBC (4.2-12.2) K/uL Hgb (11.6-16.0) gm/dl MCHC (32-36) g/dl RDW 17.6 H (11.5-14.5) % Plt Count 510 H (130-400) K/uL Lymphocytes % 10.6 L (16-45) % Monocytes % 13.5 H (0-9) % Sodium (136-145) mmol/L Potassium 5.0 H (3.4-4.5) mmol/L Chloride (98-107) mmol/L Carbon Dioxide (22-29) mmol/L Creatinine 1.1 H 1.0 H (0.5-0.9) mg/dL AST (10.0-35.0) U/L Total Protein (6.6-8.7) g/dL Albumin (4.0-5.0) g/dL 08/04/18 08/04/18 08/05/18 Range/Units 07:40 07:40 09:58 WBC (4.2-12.2) K/uL Hgb (11.6-16.0) gm/dl MCHC (32-36) g/dl RDW 14.7 H 14.9 H (11.5-14.5) % Plt Count 745 H 685 H (130-400) K/uL Lymphocytes % (16-45) % Monocytes % 11.9 H 10.4 H (0-9) % Sodium 135 L (136-145) mmol/L Potassium 3.1 L (3.4-4.5) mmol/L Chloride 87 L (98-107) mmol/L Carbon Dioxide 39.0 H (22-29) mmol/L Creatinine 1.1 H (0.5-0.9) mg/dL AST 9 L (10.0-35.0) U/L Total Protein 6.1 L (6.6-8.7) g/dL Albumin 3.8 L (4.0-5.0) g/dL 08/05/18 08/06/18 08/06/18 Range/Units 09:58 06:13 06:13 WBC 14.0 H (4.2-12.2) K/uL Hgb 11.5 L (11.6-16.0) gm/dl MCHC 31.3 L (32-36) g/dl RDW 15.3 H (11.5-14.5) % Plt Count 728 H (130-400) K/uL Lymphocytes % 15.1 L (16-45) % Monocytes % (0-9) % Sodium (136-145) mmol/L Potassium (3.4-4.5) mmol/L Chloride 89 L (98-107) mmol/L Carbon Dioxide 38.0 H (22-29) mmol/L Creatinine 1.2 H 1.0 H (0.5-0.9) mg/dL AST (10.0-35.0) U/L Total Protein (6.6-8.7) g/dL Albumin (4.0-5.0) g/dL 08/07/18 08/07/18 Range/Units 06:36 06:36 WBC (4.2-12.2) K/uL Hgb (11.6-16.0) gm/dl MCHC 31.2 L (32-36) g/dl RDW 15.4 H (11.5-14.5) % Plt Count 632 H (130-400) K/uL Lymphocytes % (16-45) % Monocytes % 10.7 H (0-9) % Sodium (136-145) mmol/L Potassium (3.4-4.5) mmol/L Chloride (98-107) mmol/L Carbon Dioxide (22-29) mmol/L Creatinine 1.0 H (0.5-0.9) mg/dL AST (10.0-35.0) U/L Total Protein (6.6-8.7) g/dL Albumin (4.0-5.0) g/dL Condition at Discharge: (2) Stable Discharge Medications - Discharge Medications Home Medications: Ambulatory Orders Albuterol Sulfate [Proair Hfa] 2 puff IH Q4H PRN inhaler 10/24/17 [Last Taken 1 Day Ago ~07/22/18] Lamotrigine [Lamictal] 100 mg PO QHS tab 10/24/17 [Last Taken 1 Day Ago ~] Venlafaxine HCl [Effexor Xr] 75 mg PO QD cap 10/24/17 [Last Taken 1 Day Ago ~] Aripiprazole 15 mg PO DAILY 05/01/18 [Last Taken 1 Day Ago ~07/22/18] Bupropion HCl [Bupropion Xl] 300 mg PO QAM 05/01/18 [Last Taken 1 Day Ago ~07/22] Ondansetron [Zofran Odt] 4 mg SL Q8H PRN #24 tab.rapdis 05/03/18 [Last Taken 1 Day Ago ~07/22/18] Melatonin 10 mg PO QHS 07/23/18 [Last Taken Unknown] Trazodone HCl 100 mg PO QHS 07/23/18 [Last Taken Unknown] Dicyclomine HCl [Bentyl] 10 mg PO Q8H #30 cap 07/27/18 [Last Taken Unknown] Hydrocodone/APAP 5/325Mg [[place] 5Mg/325Mg] 1 each PO Q6H #10 tab 07/27/18 [Last Taken Unknown] Polyethylene Glycol 3350 [Miralax] 17 gm PO BID #1 bottle 07/27/18 [Last Taken Unknown] Discharge Plan - Discharge Instructions Activity at Discharge: Increase Activity as Tolerated Diet at Discharge: Advance to Usual Diet (Transfer to [facility]) Quality Measures - Quality Measures Quality Measures: Documentation of Current Medications in Medical Record, Screening for High Blood Pressure and F/U Documented - Current Medications Quality Measure: Measure #130: Documentation of Current Medications Documentation of Current Medications: <Current Medications Documented/Reviewed> [G0930] - Blood Pressure Screening Quality Measure: Screening for High Blood Pressure and Follow-Up Documented Does Patient Have Any of the Following: No Blood Pressure Classification: Normal BP Reading Systolic Measurement: 117 Diastolic Measurement: 65 Screening for High Blood Pressure: < Normal BP, F/U Not Required > [G5639] - Elder Abuse Suspicion Index EASI Reference Information: Tonio PARRISH, Weston C, Wilmer D, Vonnie Quintana.Development and validation of a tool to assist physicians identification of elder abuse: The Elder Abuse Suspicion Index (EASI ). Journal of Elder Abuse and Neglect, 2008; 20 (3): 276-300.
--- NOTE | 2018-08-08 07:41 | RADIOLOGY REPORT ---
EXAM: ABDOMEN HISTORY: PARTIAL SMALL BOWEL OBSTRUCTION. TECHNIQUE: Two AP views of the abdomen were performed. Comparison: 08/06/18. FINDINGS: There is interval increased distention of the small bowel loops in the central abdomen. Findings are consistent with small bowel obstruction. No free air. No pneumatosis. IMPRESSION: INTERVAL INCREASE IN SIZE OF THE DISTENDED SMALL BOWEL LOOPS IN THE CENTRAL ABDOMEN. FINDINGS ARE CONSISTENT WITH SMALL BOWEL OBSTRUCTION. NO EVIDENCE OF PNEUMATOSIS. NO FREE AIR. JOB NUMBER: [id number] [facility]
== END 2018-08-07 15:05 | disposition short-term general hospital (02) | DRG 386 ==
LOC: ER 19:32 → MEDSURG 21:31
PROVIDERS: ADMIT Internal Medicine; ATTEND Internal Medicine
DX: K50.119 Crohn's disease of large intestine with unspecified complications (principal); K56.609 Unspecified intestinal obstruction, unspecified as to partial versus complete obstruction; R11.2 Nausea with vomiting, unspecified; F31.9 Bipolar disorder, unspecified; F17.210 Nicotine dependence, cigarettes, uncomplicated
CPT/HCPCS: 74018; 74022; 74176; 80048; 80053; 83690; 85025; 96361; 96374; 96375; 99223; 99233; 99239; 99285; J1650; J2270; J2405; J2930; J3480; J3490; J7030; J7040; J7070; J7512

== ENCOUNTER 2018-08-12 21:41 | Emergency (ER) | payer MEDICAID ==
[2018-08-12] MEDS ORDERED: 0.9 % SODIUM CHLORIDE 1,000 ML BAG IV ONE (21:59)
[2018-08-12] MEDS ORDERED: ONDANSETRON HCL IV 4 MG/2 ML VIAL IV ONE (21:59)
[2018-08-12] MEDS ORDERED: ACETAMINOPHEN 1,000 MG/100 ML BTL IVPB ONE (22:00)
[2018-08-12] MEDS ORDERED: MORPHINE SULFATE 10 MG/ML VIAL IVP ONE (22:02)
--- NOTE | 2018-08-12 22:19 | Emergency Department Record ---
History of Present Illness - General Chief Complaint: Abdominal Pain Stated Complaint: ABDOMINAL PAIN,BLOOD IN VOMIT,NAUSEA Time Seen by Provider: 08/12/18 21:51 Source: Patient Mode of Arrival: Ambulatory Limitations: No limitations - History of Present Illness Initial Comments: The patient is here due to recurrent AP with vomiting. She has a long hx of Crohn's dz and was recently in the hospital here at [facility] for a week due to a partial SBO. On 08/07 she was transferred to [facility] on [facility]. Rocha's service due to worsening of her obstruction. She was discharged 2 days ago and then did return to [facility] ER 24 hours ago due to AP and vomiting. The patient was evaluated in the ER and did have lab work and a CT scan and was discharged home at 1am today. Now she returns due to persistent pain and vomiting with a small amount of blood in the vomit. The patient denies any fever or chills. MD Complaint: Abdominal pain Onset/Timin -: Days(s) Location: Diffuse Radiation: None Migration to: No migration Severity scale (1-10): 6 Quality: Fullness, Sharp Consistency: Constant, Intermittent, Getting worse Improves With: Movement Worsens With: Eating, Movement Context: Other - Related Data Home Medications Medication Instructions Recorded Confirmed Last Taken Pantoprazole Sodium [Protonix] 40 mg PO DAILY 08/12/18 08/12/18 Unknown Previous Rx's Medication Instructions Recorded Ondansetron [Zofran Odt] 4 mg SL Q8H PRN #24 tab.rapdis 05/03/18 Dicyclomine HCl [Bentyl] 10 mg PO Q8H #30 cap 07/27/18 Hydrocodone/APAP 5/325Mg [[place] 1 each PO Q6H #10 tab 07/27/18 5Mg/325Mg] Polyethylene Glycol 3350 [Miralax] 17 gm PO BID #1 bottle 07/27/18 Allergies Allergy/AdvReac Type Severity Reaction Status Date / Time cephalexin Allergy Mild hives Verified 08/12/18 21:56 hydromorphone [From Dilaudid] AdvReac VOMITING Verified 08/12/18 21:56 Travel Screening - Travel/Exposure Within Last 30 Days Have you traveled within the last 30 days?: No - Travel/Exposure Within Last Year Have you traveled outside the [place] in the last year?: No - Additonal Travel Details Have you been exposed to anyone with a communicable illness?: No - Travel Symptoms Symptom Screening: None Review of Systems Constitutional: Denies: Chills, Fever Eyes: Denies: Eye discharge ENT: Denies: Congestion Respiratory: Denies: Cough, Dyspnea Cardiovascular: Denies: Arrhythmia, Chest pain Endocrine: Denies: Fatigue Gastrointestinal: Reports: Abdominal pain, Nausea, Vomiting. Denies: Diarrhea Genitourinary: Denies: Dysuria Musculoskeletal: Denies: Arthralgia Neurological: Denies: Abnormal gait Past Medical History - SOCIAL HISTORY Smoking Status: Former smoker Alcohol Use: Occasional Drug Use: None - RESPIRATORY Hx Respiratory Disorders: No - CARDIOVASCULAR Hx Cardio Disorders: No - NEURO Hx Neuro Disorders: No - GI Hx GI Disorders: Yes Hx Crohn's Disease: Yes Hx Obstructive Bowel: Yes Comment:: recent sepsis admission - Hx Genitourinary Disorders: Yes Hx Bladder Problem: Yes (mild incontinence) - ENDOCRINE Hx Endocrine Disorders: No - MUSCULOSKELETAL Hx Musculoskeletal Disorders: No - PSYCH Hx Psych Problems: Yes Hx Anxiety: Yes Hx Depression: Yes Comment:: Bipolar - HEMATOLOGY/ONCOLOGY Hx Hematology/Oncology Disorders: No Family Medical History Any Significant Family History?: Yes Family Hx Comment (NOT TO BE USED IN PLACE OF ITEMS BELOW): Mom w/Aids Physical Exam - General General Appearance: Alert, Oriented x3, Cooperative, No acute distress - Head Head exam: Atraumatic, Normocephalic, Normal inspection - Eye Eye exam: Normal appearance, PERRL - Neck Neck exam: Normal inspection, Full ROM. negative: Tenderness - Respiratory Respiratory exam: Normal lung sounds bilaterally. negative: Respiratory distress - Cardiovascular Cardiovascular Exam: Regular rate, Normal rhythm, Normal heart sounds - GI/Abdominal GI/Abdominal exam: Diminished bowel sounds, Distended, Guarding, Tenderness ( There is diffuse tenderness in all 4 quads.). negative: Rebound - Extremities Extremities exam: Normal inspection, Full ROM, Normal capillary refill. negative: Tenderness - Neurological Neurological exam: Alert. negative: Motor sensory deficit Course Vital Signs 08/12/18 21:49 Temperature 97.3 F L Pulse Rate [ 152 H Pulse Ox Probe] Respiratory 44 H Rate Blood Pressure 130/92 [Left Arm] Pulse Ox 99 - Reevaluation(s) Reevaluation #1: The patient is doing a lot better at this time. She states her pain is improved and her nausea is gone. She is resting comfortably with normal vital signs. I did discuss the case with Dr. Rocha and he did agree to directly admit the patient to [facility]. The patient also is in agreement to this. 08/12/18 23:15 Reevaluation #2: Records from the ED visit yesterday were reviewed. The CT also was reviewed and appeared to be consistent with a partial SBO. 08/13/18 23:30 Medical Decision Making - Lab Data Result diagrams: 08/12/18 22:30 08/12/18 22:30 Disposition Disposition: Transfer Clinical Impression: Partial small bowel obstruction Disposition: Acute Care Hospital Transfer Transfer To: [facility] Reason For Transfer: Gen Surgery. Accepting Physician: Josefina Time Discussed w/Accepting Physician: 23:17 Condition: (2) Stable Forms: Patient Portal Access Time of Disposition: 23:17 Quality - Quality Measures Quality Measures: N/A - Blood Pressure Screening View Details: Yes Does Patient Have Any of the Following: No Blood Pressure Classification: Pre-Hypertensive BP Reading Systolic Measurement: 110 Diastolic Measurement: 87 Screening for High Blood Pressure: < Pre-Hypertensive BP, F/U Documented > [ G8950] Pre-Hypertensive Follow-up Interventions: Referral to alternative/primary care provider.
[2018-08-12 22:38] LABS: HEMATOCRIT 39.8 % (35.0-47.0); HEMOGLOBIN 13.1 gm/dl (11.6-16.0); MEAN CELL VOLUME 84.5 fl (81-97); MEAN CORPUSCULAR HEMOGLOBIN 27.8 pg (27-33); MEAN CORPUSCULAR HGB CONC 32.9 g/dl (32-36); MEAN PLATELET VOLUME 8.2 fl (7.4-10.4); PLATELET COUNT 764 K/uL (130-400); RED BLOOD COUNT 4.71 M/uL (3.80-5.40); RED CELL DISTRIBUTION WIDTH 15.5 % (11.5-14.5); WHITE BLOOD COUNT W/O DIFF 12.9 K/uL (4.2-12.2)
[2018-08-12 22:48] LABS: BLOOD UREA NITROGEN 14 mg/dL (6-20); EST GLOMERULAR FILTRATION RATE > 60 mL/min; TOTAL PROTEIN 7.3 g/dL (6.6-8.7)
[2018-08-12 22:50] LABS: GLUCOSE,RANDOM 102 mg/dL (74-109)
[2018-08-12 22:53] LABS: ALKALINE PHOSPHATASE 75 U/L (35-104); ALT/SGPT 9 U/L (<33); AST/SGOT 12 U/L (10.0-35.0); LIPASE 59 U/L (13-60)
[2018-08-12 22:57] LABS: BILIRUBIN,DIRECT < 0.2 mg/dL (0-0.3)
[2018-08-12 22:58] LABS: ANISOCYTOSIS 1+; PLATELET ESTIMATE INCREASED (NORMAL)
[2018-08-12] MEDS ORDERED: METHYLPREDNISOLONE PF 125MG/VIAL IVP ONE (23:16)
== END 2018-08-13 00:25 | disposition short-term general hospital (02) ==
LOC: ER 21:41
DX: K56.600 Partial intestinal obstruction, unspecified as to cause (principal); R10.817 Generalized abdominal tenderness; R11.2 Nausea with vomiting, unspecified; Z87.891 Personal history of nicotine dependence
CPT/HCPCS: 80048; 80076; 83690; 84703; 85027; 85651; 86140; 96374; 96375; 99285; J2270; J2405; J2930; J7030